=== PATIENT | male | born 1965 | race Two or more races ===

== ENCOUNTER 2016-06-20 09:20 | Emergency (ER) | payer MEDICARE ==
[2016-06-20] MEDS ORDERED: ASPIRIN 81 MG TABLET, CHEWABLE PO ONE (09:38)
[2016-06-20 09:43] VITALS: BP 145/73
--- NOTE | 2016-06-20 10:47 | ER Document Report ---
ED Medical Screen (RME) - General Chief Complaint: Rib Pain Stated Complaint: CHEST PAIN Mode of Arrival: Ambulatory Information source: Patient Notes: Patient presents complaining of chest pain and cough for the past week. Cough has been productive. Patient denies any fever, nausea, or vomiting. Patient reports occasional shortness of breath. Patient declines having any lab work done. Patient states he only came here for an x-ray. hx: Dialysis, hypertension TRAVEL OUTSIDE OF THE [place] IN LAST 30 DAYS: No - Related Data Allergies/Adverse Reactions: Penicillins Allergy (Severe, Verified 06/20/16 09:45) Hives Past Medical History - Social History Chew tobacco use (# tins/day): No - Past Medical History Cardiac Medical History: Reports: Hx Hypertension - on meds Denies: Hx Coronary Artery Disease, Hx Heart Attack Pulmonary Medical History: Denies: Hx Asthma, Hx Bronchitis, Hx COPD, Hx Pneumonia Neurological Medical History: Denies: Hx Cerebrovascular Accident, Hx Seizures Renal/ Medical History: Reports: Hx End Stage Renal Disease, Hx Hemodialysis. Denies: Hx Peritoneal Dialysis GI Medical History: Reports: Hx Gastroesophageal Reflux Disease Musculoskeltal Medical History: Denies Hx Arthritis Past Surgical History: Reports: Hx Cardiac Catheterization - 05/2012, Hx Vascular Surgery - AV fistula, PICC - Immunizations Hx Diphtheria, Pertussis, Tetanus Vaccination: Yes Physical Exam - Vital signs Vitals: Temp Pulse Resp BP Pulse Ox 98.2 F 64 18 145/73 H 99 06/20/16 09:43 06/20/16 09:43 06/20/16 09:43 06/20/16 09:43 06/20/16 09:43 - Respiratory Respiratory status: No respiratory distress Chest status: Pain with cough Breath sounds: Rhonchi Course - Vital Signs Vital signs: Temp Pulse Resp BP Pulse Ox 98.2 F 64 18 145/73 H 99 06/20/16 09:43 06/20/16 09:43 06/20/16 09:43 06/20/16 09:43 06/20/16 09:43
--- NOTE | 2016-06-20 13:27 | EKG REPORT ---
SEVERITY:- ABNORMAL ECG - SINUS RHYTHM PROBABLE LEFT VENTRICULAR HYPERTROPHY : Confirmed by: Leo Martinez MD 20-Jun-2016 13:26:46
== END 2016-06-20 12:33 | disposition left against medical advice (07) ==
LOC: ER 09:20
DX: R07.81 Pleurodynia (principal); R05 Cough; I12.0 Hypertensive chronic kidney disease with stage 5 chronic kidney disease or end stage renal disease; N18.6 End stage renal disease; Z99.2 Dependence on renal dialysis; Z88.0 Allergy status to penicillin
CPT/HCPCS: 93005; 99281; 71020; 93010; A9270

== ENCOUNTER 2016-10-17 10:19 | Day surgery (SDC) | payer MEDICARE ==
[2016-10-17] MEDS ORDERED: MIDAZOLAM 2 MG/2 ML INJ ONE (11:54)
[2016-10-17] MEDS ORDERED: FENTANYL CITRATE INJ/PF 100 MCG/2 ML AMPUL ONE (11:54)
[2016-10-17] MEDS ORDERED: HEPARIN SOD (PORCINE) 5,000 UNIT/ML 1 ML SYRINGE ONE (11:55)
[2016-10-17] MEDS ORDERED: DIAZEPAM 5 MG TABLET ONE (12:13)
[2016-10-17] MEDS ORDERED: LIDOCAINE 0.5% INJ-PF (5 MG/ML) 50 ML SDV ONE (12:13)
[2016-10-17] MEDS ORDERED: OXYCODONE-ACETAMINOPHEN 5-325 MG TABLET ONE (12:13)
--- NOTE | 2016-10-17 13:31 | PDOC DISCHARGE SUMMARY ---
Discharge Summary (SDC) - Discharge Final Diagnosis: Malfunctioning arteriovenous fistula, left transposed basilic vein 2. History of myocardial infarction. 3. Hypertension. 4. Hard of hearing. Date of Surgery: 10/17/16 Discharge Date: 10/17/16 Condition: Good Treatment or Instructions: Discharge home [after recovery per ASU criteria]. Diet , [renal],as tolerated, when fully awake advance as tolerated. Activities within moderation encouraged. Follow up in my office by appointment in about 1 month. Call for appointment. Leave wounds [covered], be removed for hemodialysis. May shower [in 48 hrs], [try to keep operated area as dry as possible]. Discharge Diet: Other (Comments) - Renal Report the Following to Your Physician Immediately: Unusual Bleeding
--- NOTE | 2016-10-17 13:36 | Operative Report ---
Operative Report DATE OF SURGERY: 10/17/16 PREOPERATIVE DIAGNOSIS: Malfunctioning arteriovenous fistula, left transposed basilic vein. 2. History of myocardial infarction. 3. Hypertension. 4. Hard of hearing. POSTOPERATIVE DIAGNOSIS: Malfunctioning arteriovenous fistula, left transposed basilic vein. 2. History of myocardial infarction. 3. Hypertension. 4. Hard of hearing. OPERATION: 1. Needle access and arteriovenous fistula. 2. Angioplasty, central vein. 3. Angiogram and interpretation. SURGEON: JONY LORA MEDICAL BILLING MANAGER: None ANESTHESIA: Moderate Sedation TISSUE REMOVED OR ALTERED: Not applicable. COMPLICATIONS: None ESTIMATED BLOOD LOSS: 5 mL per INTRAOPERATIVE FINDINGS: Of a well founded left arm arteriovenous fistula, transposed basilic vein good thrill and bruit. Somewhat firm. A fairly large fistula. His stenosis appreciated in mid superior vena cava about 50% of the adjacent lumen and resolved after angioplasty with an 8 mm balloon.. Flow through the fistula is quite gu suggesting satisfactory inflow which was not evaluated at this setting. PROCEDURE: PROCEDURE: After verifying the procedure and having obtained informed consent, the patient's left arm was prepared with Chlorhexidine and draped out with sterile linen. Local anesthesia infiltrated. Percutaneous access into the fistula ,[ antegrade], obtained about [2 cm] from the arteriovenous anastomosis using a micro puncture needle followed by micro puncture wire and then a micro puncture catheter. Angiogram demonstrated the aforementioned findings. Angioplasty was elected. A 0.035 Reform wire was inserted, and over this, a 6 Croatian short introducer was placed, this was followed by a [8-mm ] angioplasty balloon . Angioplasty was serially done from the culprit lesion in the superior vena cava, down to the introducer. Inflating with hand injection through a 3 mils syringe for up to 30 seconds.]. Completion angiogram demonstrated [satisfactory result]. The instrumentation was now withdrawn over hand-held pressure for 10 minutes . Dressings applied, procedure concluded. Exposure time:1.4 Radiation:42 m andres Contrast:25 ml DICTATING PHYSICIAN: JONY JEFFERSON M.D. cc: JONY JEFFERSON M.D. ([id number]) >>
[2016-10-17 14:25] VITALS: BP 112/56
--- NOTE | 2016-10-17 15:38 | RADIOLOGY REPORT (SQ) ---
EXAM DESCRIPTION: FISTULAGRAM W/PLASTY; ANGIOPLASTY BRACHIOCEPHALIC COMPLETED DATE/TIME: 10/17/2016 3:10 pm REASON FOR STUDY: T82.858A T82.858A STENOSIS OF OTHER VASCULAR PROSTH DEV/GRFT, INIT COMPARISON: None. FLUOROSCOPY TIME: 1.4 minutes 7 digital radiographic images saved to PACS. TECHNIQUE: Intra-operative images acquired during surgical procedure to evaluate progress. NUMBER OF IMAGES: Cine fluoroscopic images. LIMITATIONS: None. FINDINGS: Imaging in fluoroscopy during left upper extremity dialysis access evaluation and plasty b y Dr. Bowman . Please refer to the operative report for further details. IMPRESSION: INTRA PROCEDURAL IMAGING AND FLUORO ABOVE . COMMENT: Quality ID [id number]: Final reports for procedures using fluoroscopy that document radiation exp osure indices, or exposure time and number of fluorographic images (if radiation exposure indices are not available) Please consult full operative report of the attending physician for description of the procedure. TECHNICAL DOCUMENTATION: JOB ID: [id number] [employer]- All Rights Reserved
== END 2016-10-17 14:30 | disposition home or self-care (01) ==
LOC: CCL 10:19
PROVIDERS: ATTEND Surgery
PROC: 057C3DZ Dilation of Left Basilic Vein with Intraluminal Device, Percutaneous Approach (ICD-10-PCS; principal; 2016-10-17)
DX: T82.858A Stenosis of other vascular prosthetic devices, implants and grafts, initial encounter (principal); Y83.2 Surgical operation with anastomosis, bypass or graft as the cause of abnormal reaction of the patient, or of later complication, without mention of misadventure at the time of the procedure; I12.0 Hypertensive chronic kidney disease with stage 5 chronic kidney disease or end stage renal disease; N18.6 End stage renal disease; H91.90 Unspecified hearing loss, unspecified ear; I25.2 Old myocardial infarction; Z88.0 Allergy status to penicillin
CPT/HCPCS: 36907; 36902; C1725; C1752; Q9967; C1769; J2250; J1644 ×2; A9270 ×2; J3010; J3490

== ENCOUNTER 2016-12-05 09:40 | Day surgery (SDC) | payer MEDICARE ==
[2016-12-05 11:14] LABS: HEMATOCRIT 43.9 % (37.9-51.0); HEMOGLOBIN 14.6 g/dL (13.5-17.0); HGB HCT DIFFERENCE -0.1; MEAN CORPUSCULAR HEMOGLOBIN 31.4 pg (27.0-33.4); MEAN CORPUSCULAR HGB CONC 33.2 g/dL (32.0-36.0); MEAN CORPUSCULAR VOLUME 95 fl (80-97); RED BLOOD COUNT 4.64 10^6/uL (4.35-5.55); RED CELL DISTRIBUTION WIDTH 14.6 % (11.5-14.0); WHITE BLOOD COUNT 4.9 10^3/uL (4.0-10.5)
[2016-12-05 11:36] LABS: ANION GAP 17 (5-19); BLOOD UREA NITROGEN 58 mg/dL (7-20); CALCIUM 8.8 mg/dL (8.4-10.2); CARBON DIOXIDE 23 mmol/L (22-30); CHLORIDE 99 mmol/L (98-107); GLUCOSE 82 mg/dL (75-110); POTASSIUM 4.5 mmol/L (3.6-5.0); SODIUM 139.3 mmol/L (137-145)
[2016-12-05 11:42] LABS: CREATININE RESULT 13.41 mg/dL (0.52-1.25)
[2016-12-05] MEDS ORDERED: OXYCODONE-ACETAMINOPHEN 5-325 MG TABLET ONE (11:47)
[2016-12-05] MEDS ORDERED: DIAZEPAM 5 MG TABLET ONE (11:47)
--- NOTE | 2016-12-05 11:56 | PDOC H&P ---
General Chief Complaint: The patient fistula, left transposed basilic vein, reduced flow. He is therefore referred across for evaluation and improvement. - Current Medications/Allergies Home Medications: Trazodone HCl [Desyrel 50 mg Tablet] 50 mg PO QHS PRN 08/06/12 Nitroglycerin [Nitrostat 0.4 mg (1/150 Gr) Tabs 25/Bottle] 1 tab SL Q5MP PRN 08/26 Albuterol Sulfate [Proair HFA] 1 - 2 puff IH Q4 PRN 10/26/14 Alprazolam 1 mg PO BID 07/10/15 Hydrocodone/Acetaminophen [Hydrocodon-Acetaminoph 7.5-325] 1 tab PO Q6 PRN 07/10 Promethazine HCl 12.5 mg PO DAILY 07/10/15 Sevelamer Carbonate 4 tab PO TID 07/10/15 Calcium Carb/Magnesium Hydrox [Antacid 1000-200 mg Tab Chew] 1 each PO DAILY PRN 08/05/15 Aspirin [Ecotrin 81 mg EC Tablet] 81 mg PO DAILY 10/17/16 Allergies/Adverse Reactions: Penicillins Allergy (Severe, Verified 06/20/16 09:45) Hives Past Medical History Cardiac Medical History: Reports: Myocardial Infarction - 2016 Denies: Coronary Artery Disease, Hypertension Pulmonary Medical History: Denies: Asthma, Bronchitis, Chronic Obstructive Pulmonary Disease (COPD), Pneumonia Neurological Medical History: Denies: Seizures Renal/ Medical History: Reports: End Stage Renal Disease GI Medical History: Reports: Gastroesophageal Reflux Disease Musculoskeltal Medical History: Denies: Arthritis Hematology: Denies: Anemia Past Surgical History Past Surgical History: Reports: Cardiac Catheterization - 05/2012, Vascular Surgery - AV fistula, PICC Family History Family History: Reviewed & Not Pertinent Parental Family History Reviewed: No Children Family History Reviewed: No Sibling(s) Family History Reviewed.: No Social History Smoking Status: Former Smoker Drugs: Marijuana Physical Exam Vital Signs: Temp Pulse Resp BP Pulse Ox 98.2 F 60 16 109/64 100 12/05/16 11:40 12/05/16 11:40 12/05/16 11:40 12/05/16 11:47 12/05/16 11:40 Intake & Output 12/04/16 12/05/16 12/06/16 06:59 06:59 06:59 Weight 49.895 kg 47.1 kg Additional comments: Constitutional: Well-developed well-nourished gentleman. No apparent acute distress. Eyes: Mucous membranes pink and moist, pupils equal and reactive to light. Conjunctiva normal. Cornea normal. ENT: Hearing grossly normal. External pinna normal to inspection. Teeth missing. Tongue normal to inspection. Cardiac: Heart sounds 1 and 2 normal. Respiratory breath sounds are present bilaterally, normal. Normal respiratory effort. Psychiatric: Judgment, memory, insight seem normal. Mood is pleasant and appropriate. Extremities: Upper extremities show normal range of movement. Pulses present noted to the radial arteries. Capillary refill normal. No cyanosis noted. No muscle wasting noted. Left arm has a transposed fistula, adequate size. Likely soft suggesting possible inflow improvement opportunity. Impression/Plan Impression: #1 malfunctioning AV fistula left arm transposed. 2. History of coronary artery disease. 3. Hypertension. Plan: In this patient with a malfunctioning AV fistula,Angiogram and possible angioplasty is suggested. Risks, benefits, expected outcome of familiar to the patient. He wishes to proceed.
[2016-12-05] MEDS ORDERED: LIDOCAINE 0.5% INJ-PF (5 MG/ML) 50 ML SDV ONE (11:57)
[2016-12-05] MEDS ORDERED: MIDAZOLAM 2 MG/2 ML INJ ONE (11:57)
[2016-12-05] MEDS ORDERED: FENTANYL CITRATE INJ/PF 100 MCG/2 ML AMPUL ONE (11:57)
[2016-12-05] MEDS ORDERED: HEPARIN SOD (PORCINE) 5,000 UNIT/ML 1 ML SYRINGE ONE (11:57)
--- NOTE | 2016-12-05 12:59 | PDOC DISCHARGE SUMMARY ---
Discharge Summary (SDC) - Discharge Final Diagnosis: #1 malfunctioning AV fistula left arm transposed. 2. History of coronary artery disease. 3. Hypertension. Date of Surgery: 12/05/16 Discharge Date: 12/05/16 Condition: Good Treatment or Instructions: Discharge home [after recovery per ASU criteria]. Diet , [renal],as tolerated, when fully awake advance as tolerated. Activities within moderation encouraged. Follow up in my office by appointment in about [1 month]. Call for appointment. Leave wounds [covered], [keep clean and dry, until hemodialysis office visit in 1 week]. Meds per med rec May shower [in 48 hrs], [try to keep operated area as dry as possible]. Discharge Diet: Other (Comments) - Renal Respiratory Treatments at Home: Deep Breathing/Coughing Discharge Activity: Activity As Tolerated Report the Following to Your Physician Immediately: Shortness of Breath, Unusual Bleeding
--- NOTE | 2016-12-05 13:21 | Operative Report ---
Operative Report DATE OF SURGERY: 12/05/16 PREOPERATIVE DIAGNOSIS: 1. Malfunctioning AV fistula left transposed basilic. 2. End-stage renal disease on hemodialysis. 3. Hypertension. POSTOPERATIVE DIAGNOSIS: 1. Malfunctioning AV fistula left transposed basilic. 2. End-stage renal disease on hemodialysis. 3. Hypertension. OPERATION: 1. Needle access to the arteriovenous fistula. 2. Angioplasty. 3. Angiogram and interpretation. SURGEON: JONY LORA MACHINE PLATE STACKER: None ANESTHESIA: Moderate Sedation TISSUE REMOVED OR ALTERED: Not applicable. COMPLICATIONS: Some prolonged bleeding, probably because of increase in flow. Also noted is a low pulse to 40. Asymptomatic the patient feels feels fine and blood pressure is well maintained. This is almost certainly chronic. Will discuss with his electrical project engineer. ESTIMATED BLOOD LOSS: 5 mL. INTRAOPERATIVE FINDINGS: Of a well founded arteriovenous fistula, left transposed basilic. A borderline area about 2 cm long in the subclavian 40% stenosis, is not felt to be hemodynamically significant. It may need addressing in the future. The culprit is relatively small inflow from the radial artery and small perianastomotic segment. These were improved with angioplasty with much increased pulse in the fistula. PROCEDURE: PROCEDURE: After verifying the procedure and having obtained informed consent, the patient's left arm and forearm were prepared with Chlorhexidine and draped out with sterile linen. Local anesthesia infiltrated. Percutaneous access into the fistula ,[retrograde], obtained about [20 cm] from the arteriovenous anastomosis using a micro puncture needle followed by micro puncture wire and then 1 more angiogram demonstrated the aforementioned findings. Angioplasty was elected. A 0.035 [place] wire was inserted, and over this, a 6 Mongolian short introducer was placed, followed by a Kumpe catheter , allowing access to the radial artery. Angiogram was as above. This was followed by a [6 mm soft] angioplasty balloon . Angioplasty was now done at the this was done using a 3 mm perianastomotic segment. Balloon and sustain for her. Angiogram demonstrated successful outcome. Completion angiogram demonstrated [satisfactory result]. The instrumentation was now withdrawn over a short piece of catheter and a 4-0 Prolene suture. Dressings applied, procedure concluded. DICTATING PHYSICIAN: JONY JEFFERSON M.D. cc: JONY JEFFERSON M.D. ([id number])
[2016-12-05] MEDS ORDERED: NALOXONE HCL INJ/PF 0.4 MG/1 ML SDV ONE (13:34)
[2016-12-05 15:15] VITALS: BP 104/64
--- NOTE | 2016-12-05 16:44 | RADIOLOGY REPORT (SQ) ---
EXAM DESCRIPTION: FISTULAGRAM W/PLASTY COMPLETED DATE/TIME: 12/05/2016 3:20 pm REASON FOR STUDY: T82.858A T82.858A STENOSIS OF OTHER VASCULAR PROSTH DEV/GRFT, INIT COMPARISON: None. FLUOROSCOPY TIME: 2.7 minutes. 13 images saved to PACS. TECHNIQUE: Intra-operative images acquired during surgical procedure to evaluate progress. NUMBER OF IMAGES: 13 images. LIMITATIONS: None. FINDINGS: Imaging in fluoroscopy during left upper extremity dialysis access evaluation and plasty b y Dr. Bowman . Please refer to the operative report for further details. IMPRESSION: INTRA PROCEDURAL IMAGING ABOVE . COMMENT: Quality ID [id number]: Final reports for procedures using fluoroscopy that document radiation exp osure indices, or exposure time and number of fluorographic images (if radiation exposure indices are not available) Please consult full operative report of the attending physician for description of the procedure. TECHNICAL DOCUMENTATION: JOB ID: [id number] [employer]- All Rights Reserved
== END 2016-12-05 14:15 | disposition home or self-care (01) ==
LOC: SC 09:40
PROVIDERS: ATTEND Surgery
PROC: 057C3DZ Dilation of Left Basilic Vein with Intraluminal Device, Percutaneous Approach (ICD-10-PCS; principal; 2016-12-05)
DX: T82.858A Stenosis of other vascular prosthetic devices, implants and grafts, initial encounter (principal); Y83.2 Surgical operation with anastomosis, bypass or graft as the cause of abnormal reaction of the patient, or of later complication, without mention of misadventure at the time of the procedure; N18.6 End stage renal disease; F12.90 Cannabis use, unspecified, uncomplicated; I25.2 Old myocardial infarction; Z79.899 Other long term (current) drug therapy; Z79.51 Long term (current) use of inhaled steroids; Z79.82 Long term (current) use of aspirin; Z87.891 Personal history of nicotine dependence; Z88.0 Allergy status to penicillin
CPT/HCPCS: 36415; 85027; 80048; 36902; 93005; 93010; C1752; C1887; C1894; Q9967; C1769; J1644 ×2; A9270 ×2; J3010; J3490; J2310; J2250

== ENCOUNTER 2017-05-03 07:05 | Emergency (ER) | payer MEDICARE, MEDICAID ==
[2017-05-03] MEDS ORDERED: MORPHINE SULFATE 10 MG/ML INJ IV ONE (07:26)
--- NOTE | 2017-05-03 07:27 | ER Document Report ---
ED General - General Chief Complaint: Back Pain Stated Complaint: BACK PAIN Time Seen by Provider: 05/03/17 07:12 Notes: Patient is a 51 year old male who presents to the ED complaining of sudden onset right flank pain this AM when he woke up. Patient is very disruptive and noncooperative. Through repetitive questioning and review of the chart, able to gather he has a h/o ESRD on dialysis MWF without any missed treatments and follow with Dr. Downs, history of previous back injury with DD v.s OA, h/o nephrolithiaisis. H/o CAD with possible h/o IA but patient not cooperative regarding this portion of his history, HTN Denies tobacco, etoh or drug use TRAVEL OUTSIDE OF THE [place] IN LAST 30 DAYS: No - Related Data Allergies/Adverse Reactions: Penicillins Allergy (Severe, Verified 06/20/16 09:45) Hives Past Medical History - Social History Smoking Status: Never Smoker Family History: Reviewed & Not Pertinent - Past Medical History Cardiac Medical History: Reports: Hx Heart Attack - 2015 Denies: Hx Coronary Artery Disease, Hx Hypertension Pulmonary Medical History: Denies: Hx Asthma, Hx Bronchitis, Hx COPD, Hx Pneumonia Neurological Medical History: Denies: Hx Cerebrovascular Accident, Hx Seizures Renal/ Medical History: Reports: Hx End Stage Renal Disease, Hx Hemodialysis. Denies: Hx Peritoneal Dialysis GI Medical History: Reports: Hx Gastroesophageal Reflux Disease Musculoskeltal Medical History: Denies Hx Arthritis Past Surgical History: Reports: Hx Cardiac Catheterization - 05/2012, Hx Vascular Surgery - AV fistula, PICC - Immunizations Hx Diphtheria, Pertussis, Tetanus Vaccination: Yes Hx Pneumococcal Vaccination: 07/12/16 Review of Systems - Review of Systems -: Yes ROS unobtainable due to patient's medical condition - Pat[place] refusing to answer, states "my back hurts" Physical Exam - Vital signs Vitals: Temp Pulse Resp BP Pulse Ox 97.5 F 89 20 133/60 H 92 05/03/17 07:09 05/03/17 07:09 05/03/17 07:09 05/03/17 07:09 05/03/17 07:09 - Notes Notes: PHYSICAL EXAM GENERAL: Alert, significant discomfort and tearful, constantly fidgeting on the gurney HEAD: Normocephalic, atraumatic. EYES: Pupils equal, round, and reactive to light. Extraocular movements intact. ENT: Oral mucosa moist, tongue midline. NECK: Full range of motion. Supple. Trachea midline. LUNGS: Clear to auscultation bilaterally, no wheezes, rales, or rhonchi. No respiratory distress. HEART: Regular rate and rhythm. No murmurs, gallops, or rubs. ABDOMEN: Soft, nondistended, nontender. No guarding, rebound, or rigidity.. Bowel sounds present in all 4 quadrants. BACK: gait stable, patient able to ambulate. Admits to tenderness to palpation of the right paralumbar musculature and CVA tenderness on the right EXTREMITIES: Moves all 4 extremities spontaneously. No edema, radial and dorsalis pedis pulses 2/4 bilaterally. No cyanosis. NEUROLOGICAL: Alert and oriented x4. Normal speech. PSYCH: Normal affect, normal mood. SKIN: Warm, dry, normal turgor. No rashes or lesions noted. Course - Re-evaluation Re-evalutation: 05/03/17 09:26 Patient is a 51 year old male who is hemodynamically stable, very uncomfortable and afebrile. Has been uncooperative and refusing blood work initially. Review of the chart show history of kidney stones, patient is anuric. 05/03/17 10:23 CT shows evidence of chronic kidney disease and no acute source of his pain. Patient resting comfortably and cooperative/consenting to blood draws. Did review most recent monthly labs from his home dialysis clinic. 05/03/17 11:34 Patient with an elevated potassium of 6.2 with peak T waves noted on EKG. Otherwise patient is stable without shortness of breath or chest pain. Discussed case with patient's foreign exchange dealer Dr. Downs who recommends outpatient dialysis upon discharge from the emergency department she will call over to [facility] and touch base with the department to see if they are able to take him today. 05/03/17 12:30 Patient feeling much better, will send with community financial operations consultant to [facility] for dialysis - Vital Signs Vital signs: Temp Pulse Resp BP Pulse Ox 97.8 F 72 18 132/59 H 98 05/03/17 12:50 05/03/17 12:50 05/03/17 12:50 05/03/17 12:50 05/03/17 12:50 - Laboratory Result Diagrams: 05/03/17 10:01 05/03/17 10:01 Laboratory results interpreted by me: 05/03/17 05/03/17 05/03/17 10:01 10:01 10:01 RDW 16.1 H Seg Neutrophils % 82.9 H Lymphocytes % 8.0 L Potassium 6.2 H* Carbon Dioxide 21 L Anion Gap 22 H BUN 50 H Creatinine 10.85 H Est GFR ( Amer) 6 L Est GFR (Non-Af Amer) 5 L Calcium 10.3 H Magnesium 2.4 H Direct Bilirubin 0.7 H ALT 20 L Discharge - Discharge Clinical Impression: End stage renal disease on dialysis, Flank pain Condition: Stable Disposition: HOME, SELF-CARE Additional Instructions: Please go to [facility] immediately after dialysis LOW BACK PAIN: Three out of every four people will have an episode of disabling back pain during their lifetime. Most commonly the pain is due to straining of the muscles and ligaments in the low back. Usual treatment includes: (1) Rest on a firm surface. Avoid lying on your stomach. (2) Ice pack the painful area. After a few days, gentle heat may be used intermittently to relax the area, or ice packs can be continued. (3) Medication may be needed -- muscle relaxers and antiinflammatory medicines are commonly used. (4) As the back improves, exercises are prescribed to strengthen the back and abdominal muscles. Your doctor will advise you on the proper care for your back at each stage in your recovery. You may be better in a few days -- or healing may take several weeks. If new symptoms of a "herniated disc" (radiation of pain, numbness, or tingling down the back of the leg or weakness in the leg) occur, you should be re-examined. Further testing may be necessary. PAIN MEDICATION INJECTION: You have received an injection of a pain medication. You should experience significant pain relief within 45 minutes. If this injection was a narcotic -- it will impair your judgement, slow your reaction time and make you sleepy (as well as relieve your pain). Narcotics also can cause nausea. You should not drive, work with machinery, or perform any task requiring mental alertness until all effects of the medication are gone -- six to eight hours. Do not take any alcohol, or sedatives, and do not take any other medication without checking with your physician. ICE PACKS: Apply ice packs frequently against the painful area. Many different schedules are recommended, such as "20 minutes on, 20 minutes off" or "one hour ice, two hours rest." If you need to work, you may need to go longer between ice treatments. You should plan to have the area ice packed AT LEAST one fourth of the time. The ice should be applied over the wrap, tape, or splint, or over a layer of cloth -- not directly against the skin. Some ice bags have a built-in cloth and can be put directly on the skin. WARM PACKS: After approximately two days, apply gentle heat (such as a heating pad or hot water bottle) for about 20 to 30 minutes about every two hours -- at least four times daily. Warmth and elevation will help you make a more rapid recovery , and will ease the pain considerably. Do not use HOT heat, and never apply heat for longer than 30 minutes. The continuous heat can invisibly damage skin and muscles -- even when no burn is seen on the surface. Damaged muscles can make you MORE sore. FOLLOW-UP CARE: If you have been referred to a physician for follow-up care, call the physician s office for an appointment as you were instructed or within the next two days. If you experience worsening or a significant change in your symptoms, notify the physician immediately or return to the Emergency Department at any time for re-evaluation. Referrals: JASBIR DOWNS MD [ACTIVE STAFF] - Follow up tomorrow
[2017-05-03] MEDS ORDERED: CYCLOBENZAPRINE HCL 10 MG TABLET PO ONE (07:37)
[2017-05-03] MEDS ORDERED: LORAZEPAM 1 MG TABLET PO ONE (07:39)
[2017-05-03] MEDS ORDERED: OXYCODONE-ACETAMINOPHEN 5-325 MG TABLET PO ONE (08:21)
--- NOTE | 2017-05-03 08:28 | RADIOLOGY REPORT (SQ) ---
EXAM DESCRIPTION: CT LTD RENAL STONE PROTOCOL ON COMPLETED DATE/TIME: 05/03/2017 7:54 am REASON FOR STUDY: right flank pain COMPARISON: CT abdomen pelvis 08/04/2015 TECHNIQUE: CT scan of the abdomen and pelvis performed without intravenous or oral contrast. Images reviewed with lung, soft tissue, and bone windows. Reconstructed coronal and sagittal MPR images revi ewed. All images stored on PACS. All CT scanners at this facility use dose modulation, iterative reconstruction, and/or weight based d osing when appropriate to reduce radiation dose to as low as reasonably achievable (ALARA). [facility]: Dose Right [facility]: CareDose [facility]: Dose Right [facility]: Teradose 4D [facility]: Smart [employer] RADIATION DOSE: CT Rad equipment meets quality standard of care and radiation dose reduction techniq ues were employed. CTDIvol: 4.8 mGy. DLP: 253 mGy-cm.mGy. LIMITATIONS: None. FINDINGS: LOWER CHEST: No significant findings. No nodules or infiltrates. NON-CONTRASTED LIVER, SPLEEN, ADRENALS: Evaluation limited by lack of IV contrast. No identified sign ificant masses. PANCREAS: No masses. No peripancreatic inflammatory changes. GALLBLADDER: No identified stones by CT criteria. No inflammatory changes to suggest cholecystitis. RIGHT KIDNEY AND URETER: 1.3 cm cyst right upper pole kidney. Right kidney diffusely small, 8 cm in length with diffuse cortical thinning. No significant calcifications. No hydronephrosis or hydrou reter. LEFT KIDNEY AND URETER: 1.5 cm hemorrhagic cyst versus solid nodule left lower pole kidney axial imag e 30 and coronal image 49. Left kidney is small, 7.5 cm in length with diffuse cortical thinning 2 mm left upper pole intrarenal nonobstructive stone. No hydronephrosis or hydroureter. AORTA AND RETROPERITONEUM: No aneurysm. No retroperitoneal masses or adenopathy. BOWEL AND PERITONEAL CAVITY: Large amount of stool throughout the colon. No CT evidence of bowel obs truction. No free intraperitoneal air or fluid. APPENDIX: Normal. PELVIS, BLADDER, AND ABDOMINAL WALL:No abnormal masses. No free fluid. Bladder normal. BONES: No significant findings. OTHER: No other significant finding. IMPRESSION: Small bilateral kidneys with cortical thinning. Correlate clinically for renal insuffic iency 2 mm left upper pole intrarenal nonobstructive stone Indeterminate hemorrhagic cyst versus solid mass left lower pole kidney. Follow-up renal ultrasound recommended. COMMENT: Quality ID # [id number]: Final reports with documentation of one or more dose reduction techniques (e.g., Automated exposure control, adjustment of the mA and/or kV according to patient size, use of iterative reconstruction technique) TECHNICAL DOCUMENTATION: JOB ID: [id number] [employer]- All Rights Reserved
[2017-05-03] MEDS ORDERED: MORPHINE SULFATE 10 MG/ML INJ IM ONE (08:40)
[2017-05-03 10:15] LABS: ABSOLUTE BASOPHILS # (AUTO) 0.1 10^3/uL (0.0-0.2); ABSOLUTE EOSINOPHILS # (AUTO) 0.2 10^3/uL (0.0-0.6); ABSOLUTE LYMPHOCYTES (AUTO) 0.6 10^3/uL (0.5-4.7); ABSOLUTE MONOCYTES (AUTO) 0.5 10^3/uL (0.1-1.4); ABSOLUTE NEUT (AUTO) 6.2 10^3/uL (1.7-8.2); BASOPHILS % (AUTO) 0.7 % (0-2); EOSINOPHILS % (AUTO) 2.2 % (0-6); HEMATOCRIT 43.4 % (37.9-51.0); HEMOGLOBIN 14.6 g/dL (13.5-17.0); HGB HCT DIFFERENCE 0.4; MEAN CORPUSCULAR HEMOGLOBIN 31.7 pg (27.0-33.4); MEAN CORPUSCULAR HGB CONC 33.6 g/dL (32.0-36.0); MEAN CORPUSCULAR VOLUME 94 fl (80-97); MONOCYTES % (AUTO) 6.2 % (3-13); RED CELL DISTRIBUTION WIDTH 16.1 % (11.5-14.0); SEGMENTED NEUTROPHILS % (AUTO) 82.9 % (42-78); WHITE BLOOD COUNT 7.5 10^3/uL (4.0-10.5)
[2017-05-03 10:34] LABS: ALANINE AMINOTRANSFERASE 20 U/L (21-72); ALKALINE PHOSPHATASE 55 U/L (38-126); ASPARTATE AMINO TRANSFERASE 18 U/L (17-59); BILIRUBIN,DIRECT 0.7 mg/dL (0.0-0.4); BILIRUBIN,TOTAL 0.7 mg/dL (0.2-1.3); BLOOD UREA NITROGEN 50 mg/dL (7-20); CALCIUM 10.3 mg/dL (8.4-10.2); CREATININE RESULT 10.85 mg/dL (0.52-1.25); GLUCOSE 87 mg/dL (75-110)
[2017-05-03 10:44] LABS: CARBON DIOXIDE 21 mmol/L (22-30); CHLORIDE 100 mmol/L (98-107); SODIUM 143.1 mmol/L (137-145)
[2017-05-03 10:48] LABS: ANION GAP 22 (5-19)
[2017-05-03 10:50] LABS: POTASSIUM 6.2 mmol/L (3.6-5.0)
[2017-05-03 12:50] VITALS: BP 132/59
--- NOTE | 2017-05-03 13:34 | EKG REPORT ---
SEVERITY:- ABNORMAL ECG - SINUS RHYTHM NONSPECIFIC INTRAVENTRICULAR CONDUCTION DELAY PROBABLE LEFT VENTRICULAR HYPERTROPHY : Confirmed by: Leo Martinez MD 03-May-2017 13:34:31
== END 2017-05-03 12:50 | disposition home or self-care (01) ==
LOC: ER 07:05
DX: R10.9 Unspecified abdominal pain (principal); N18.6 End stage renal disease; Z99.2 Dependence on renal dialysis; Z87.442 Personal history of urinary calculi; M54.9 Dorsalgia, unspecified
CPT/HCPCS: 93005; 99284; 96372; 36415; 83735; 85025; 80053; 76380; 93010; A9270 ×3; J2270

== ENCOUNTER 2017-05-04 21:46 | Emergency (ER) | payer MEDICARE, MEDICAID ==
[2017-05-04 21:54] VITALS: BP 133/89
[2017-05-04] MEDS ORDERED: OXYCODONE-ACETAMINOPHEN 5-325 MG TABLET PO ONE (22:42)
--- NOTE | 2017-05-04 23:09 | ER Document Report ---
ED Extremity Problem, Lower - General Chief Complaint: Leg Pain Stated Complaint: RIGHT LEG PAIN Time Seen by Provider: 05/04/17 22:26 Information source: Patient Notes: Patient is a 51-year-old male who returns to the emergency department today stating that after he left here he went to dialysis by the EMS transport got downsized. He got up was walking out and tripped and fell landing on his right leg. Patient states that he has "no feeling in his leg". Patient also states that he landed straight on his knee and that is why he believes he has difficulty walking. He also states that he think he might have broke his right middle toe. Patient denies any other traumatic events and did not hit his head or have loss of consciousness or have any other injuries. He is here to get his leg checked out. TRAVEL OUTSIDE OF THE [place] IN LAST 30 DAYS: No - HPI Patient complains to provider of: Altered sensation, Injury Location: Knee, Leg, 3rd Toe Occurred: This afternoon Where: Other - Dialysis office Onset/Duration: Sudden Quality of pain: Achy, Sharp Severity: Moderate Pain Level: 3 Context: Wearing shoes Recent injury: Yes Associated symptoms: Weak Exacerbated by: Walking Relieved by: Rest Other injuries: No other injuries were sustained - Related Data Allergies/Adverse Reactions: Penicillins Allergy (Severe, Verified 06/20/16 09:45) Hives Past Medical History - General Information source: Patient - Social History Smoking Status: Unknown if Ever Smoked Chew tobacco use (# tins/day): No Smoking Education Provided: No Frequency of alcohol use: None Drug Abuse: None Family History: Reviewed & Not Pertinent - Past Medical History Cardiac Medical History: Reports: Hx Heart Attack - 2016 Denies: Hx Coronary Artery Disease, Hx Hypertension Pulmonary Medical History: Denies: Hx Asthma, Hx Bronchitis, Hx COPD, Hx Pneumonia Neurological Medical History: Denies: Hx Cerebrovascular Accident, Hx Seizures Renal/ Medical History: Reports: Hx End Stage Renal Disease, Hx Hemodialysis. Denies: Hx Peritoneal Dialysis GI Medical History: Reports: Hx Gastroesophageal Reflux Disease Musculoskeltal Medical History: Denies Hx Arthritis Past Surgical History: Reports: Hx Cardiac Catheterization - 05/2012, Hx Vascular Surgery - AV fistula, PICC - Immunizations Hx Diphtheria, Pertussis, Tetanus Vaccination: Yes Hx Pneumococcal Vaccination: 07/12/16 Review of Systems - Review of Systems Constitutional: No symptoms reported EENT: No symptoms reported Cardiovascular: No symptoms reported Respiratory: No symptoms reported Gastrointestinal: No symptoms reported Genitourinary: No symptoms reported Male Genitourinary: No symptoms reported Skin: No symptoms reported Hematologic/Lymphatic: No symptoms reported Neurological/Psychological: No symptoms reported -: Yes All other systems reviewed and negative Physical Exam - Vital signs Vitals: Temp Pulse Resp BP Pulse Ox 98.4 F 75 18 133/89 H 99 05/04/17 21:53 05/04/17 21:53 05/04/17 21:53 05/04/17 21:53 05/04/17 21:53 Interpretation: Hypertensive - General General appearance: Appears well Notes: Patient stated for 51-year-old male who comes to the emergency room often. He was here yesterday and with a complaint of back pain he had a extensive workup including a CT of his kidneys and back and lab work done. The previous provider noted the patient was very noncompliant somewhat abusive difficult to deal with it until he got some pain medication. After the patient was much nicer and started to respond to questions and answers that were asked of him. Yesterday's labs with the patient had a 6.1 potassium with an elevated BUN/ creatinine but he is on chronic dialysis. The provider contacted the road builder in charge he was discharged by our facility here in ER and taken directly from here over to the dialysis and had his treatment. Patient then states that after his dialysis was done he was walking and he tripped and he fell landing on his right knee and leg. States since that time is not be able to bear any weight and he is "loss of feeling in his leg". Patient also states that he is having difficulty walking that his leg gives out when he tries to place weight upon it. Patient continues to tell me he is in a lot of pain and is something for the pain. Prior to walking into the room is monitoring patient from around the hallway and he did not appear in any type of distress. He was freely moving both arms and legs both sides of the body. He had no problem in transfer from chair to gurney. Also make note patient on physical exam is a very frail-appearing individual - Respiratory Respiratory status: No respiratory distress Chest status: Nontender Breath sounds: Normal Chest palpation: Normal - Cardiovascular Rhythm: Regular Heart sounds: Normal auscultation Murmur: No - Back Back: Normal, Nontender. No: Tender, Deformity/step-off, CVA tenderness, Vertebra tenderness, Scars, Scoliosis, Wounds, Other - Extremities General upper extremity: Normal inspection, Normal ROM, Normal strength General lower extremity: Tender, Normal temperature. No: Normal inspection, Nontender, Edema, Normal color, Normal ROM, Normal strength, Normal weight bearing, Estela's sign, Other Shoulder: Normal, Nontender Hip: Nontender, Other - At this time is difficult to determine whether patient can bear weight or not. We are waiting for x-rays to come back to make sure there is no serious problem then we will attempt to have him ambulate. Currently though he is moving all 4 extremities without any problem lying on the gurney. Is also actively flexing and extending his right leg without noticing it. But at the same telling me he cannot move his leg.. No: Normal, Tender, Abrasion, Deformity, Dislocation, Ecchymosis, Instability, Laceration, Pain with ROM, Unable to bear weight Thigh: Normal, Nontender. No: Tender, Abrasion, Deformity, Dislocation, Ecchymosis, Instability, Laceration, Unable to bear weight, Other Knee: Pain with ROM, Patellar tendon intact, Other - Also further inspection patient's lower extremities on this exam from description patient fell straight down onto his leg and he has not been able to move it very much since then. This is already been questionable since he is moving everything freely on her examination. And also to note his right knee does appear somewhat a little on the swollen side however there is no ecchymosis or abrasions that are noted from a sustained fall which he says occurred yesterday.. No: Normal, Nontender , Tender, Abrasion, Deformity, Dislocation, Drawer's test instability, Ecchymosis, Instability, Joint effusion, Laceration, Laxity with valgus stress, Laxity with varus stress, Popliteal fossa tender, Tender joint line, Unable to bear weight Calf: Normal, Nontender. No: Tender, Abrasion, Deformity, Ecchymosis, Instability, Laceration, Unable to bear weight, Other Foot: Other - This is just make note that I did a pinprick test on patient's foot leg thigh calf and he responded with jerking. This was only done with the end of a ball point pen so as not sharp in nature to the sensation. This goes against him telling me he has no feeling in the leg. - Neurological Neuro grossly intact: Yes Cognition: Normal Orientation: AAOx4 Sloan Coma Scale Eye Opening: Spontaneous Kira Coma Scale Verbal: Oriented Kira Coma Scale Motor: Obeys Commands Sloan Coma Scale Total: 15 Speech: Normal Course - Vital Signs Vital signs: Temp Pulse Resp BP Pulse Ox 98.4 F 75 18 133/89 H 99 05/04/17 21:53 05/04/17 21:53 05/04/17 21:53 05/04/17 21:53 05/04/17 21:53 - Diagnostic Test Radiology reviewed: Reports reviewed - The plain films of patient's right hip right knee and right foot showed no acute findings. - Transfer of Care Notes: 05/05/17 00:15 Since patient has been here is asked for pain medication again. I am still waiting on the x-ray readings to come through. Just wanted to make note throughout his entire stay here patient is not once complained of back pain. He has not complained of loss of stool. Also did not feel was necessary to repeat labs since it was documented patient was directly taken from this hospital to dialysis yesterday for his regular visit. He is also not complaining of anything with the exception of the pain to the knee and "loss of feeling. During my physical examination while patient had his eyes diverted I took my opinion and I touched the bottom of his foot and he jerked back. I waited a while and I touch the calf again he jerked back so patient has feeling in his leg. 05/05/17 00:27 As stated earlier patient been asking for pain medication again for his leg. Made mention to the nurse on a couple times that the pain was too much she could not walk. I was on the way to see the patient nurse had already relayed the message I was waiting on the x-rays to see if he had fractured anything before getting more pain medication and 10 minutes later nurse comes back to me and tells me that patient got up on his own and walked out the door with a steady gait and left. 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 05/05/17 00:38 I did make a point myself to walk around the building is difficult to find the patient and he has no were present to be found. I avoided to the x-rays came back the hip the knee and the foot and all were normal in appearance per radiology. So at this point patient did display drug-seeking behavior and when not provided he decided to leave. 05/05/17 00:40 Also to point out that patient does not necessarily have left AGAINST MEDICAL ADVICE for diagnosis because he never asked for advice and just decided to up and leave without any indication of why. Discharge - Discharge Clinical Impression: Drug-seeking behavior Condition: Good Disposition: ELOPED
--- NOTE | 2017-05-05 00:34 | RADIOLOGY REPORT (SQ) ---
EXAM DESCRIPTION: HIP RIGHT AP/LATERAL CLINICAL HISTORY: 51 years, Male, tripped; Rt. leg pain COMPARISON: None. LIMITATIONS: None. FINDINGS: Bones, joints, and soft tissues appear intact. IMPRESSION: Intact right hip. 2011 [employer]- All Rights Reserved
--- NOTE | 2017-05-05 00:35 | RADIOLOGY REPORT (SQ) ---
EXAM DESCRIPTION: KNEE RIGHT 4 VIEWS CLINICAL HISTORY: 51 years, Male, tripped; Rt leg pain COMPARISON: None. NUMBER OF VIEWS:4 LIMITATIONS: None. FINDINGS: Bones, joints, and soft tissues appear intact. IMPRESSION: Intact right knee. 2011 [employer]- All Rights Reserved
--- NOTE | 2017-05-05 00:36 | RADIOLOGY REPORT (SQ) ---
EXAM DESCRIPTION: FOOT RIGHT COMPLETE CLINICAL HISTORY: 51 years, Male, tripped; Rt. leg pain COMPARISON: None. LIMITATIONS: None. FINDINGS: Atherosclerosis. Bony demineralization. Bones, joints, and soft tissues including the fifth digit appear otherwise intact. IMPRESSION: Intact right foot. 2011 [employer]- All Rights Reserved
== END 2017-05-05 00:15 | disposition left against medical advice (07) ==
LOC: ER 21:46
DX: Z76.5 Malingerer [conscious simulation] (principal); N18.6 End stage renal disease; Z99.2 Dependence on renal dialysis; I25.2 Old myocardial infarction; Z88.0 Allergy status to penicillin
CPT/HCPCS: 99283; 73630; 73502; 73564; A9270

== ENCOUNTER 2017-05-06 09:53 | Emergency (ER) | payer MEDICARE, MEDICAID ==
[2017-05-06 10:03] VITALS: BP 140/72
--- NOTE | 2017-05-06 11:22 | ER Document Report ---
HPI - HPI Patient complains to provider of: right leg pain Onset: Other Onset/Duration: Persistent Quality of pain: Throbbing Severity: Moderate Pain Level: 3 Context: Patient states he was seen in the emergency room twice recently for back pain and right leg pain. Comes in today complaining of continuing right leg pain. No new injury. Denies loss of control of bowels or bladder. Associated Symptoms: None Exacerbated by: Movement, Walking Relieved by: Denies Similar symptoms previously: Yes Recently seen / treated by doctor: Yes - ROS ROS below otherwise negative: Yes Systems Reviewed and Negative: Yes All other systems reviewed and negative - CONSTITUTIONAL Constitutional: DENIES: Fever - EENT EENT: DENIES: Congestion - NEURO Neurology: DENIES: Headache - CARDIOVASCULAR Cardiovascular: DENIES: Chest pain - RESPIRATORY Respiratory: DENIES: Trouble Breathing - GASTROINTESTINAL Gastrointestinal: DENIES: Abdominal Pain - URINARY Urinary: DENIES: Dysuria, Urgency, Frequency - MUSCULOSKELETAL Musculoskeletal: REPORTS: Extremity pain - Right leg pain - DERM Skin Color: Normal Past Medical History - General Information source: Patient - Social History Smoking Status: Unknown if Ever Smoked Cigarette use (# per day): No Frequency of alcohol use: None Drug Abuse: None Lives with: Family Family History: Reviewed & Not Pertinent - Past Medical History Cardiac Medical History: Reports: Hx Heart Attack - 2015 Renal/ Medical History: Reports: Hx End Stage Renal Disease, Hx Hemodialysis GI Medical History: Reports: Hx Gastroesophageal Reflux Disease Past Surgical History: Reports: Hx Cardiac Catheterization - 05/2012, Hx Vascular Surgery - AV fistula, PICC - Immunizations Hx Diphtheria, Pertussis, Tetanus Vaccination: Yes Hx Pneumococcal Vaccination: 07/12/16 Vertical Provider Document - CONSTITUTIONAL Agree With Documented VS: Yes Exam Limitations: No Limitations General Appearance: WD/WN, No Apparent Distress - INFECTION CONTROL TRAVEL OUTSIDE OF THE [place] IN LAST 30 DAYS: No - HEENT HEENT: Atraumatic, Normocephalic - RESPIRATORY Respiratory: Breath Sounds Normal, No Respiratory Distress O2 Sat by Pulse Oximetry: 100 - CARDIOVASCULAR Cardiovascular: Regular Rate, Regular Rhythm - GI/ABDOMEN Gastrointestinal: Abdomen Soft - MUSCULOSKELETAL/EXTREMETIES Musculoskeletal/Extremeties: MAEW Notes: Patient resting comfortably on entry to room. 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 Winces at the slightest touch to right leg. There is no edema no erythema. Neurovascular and sensation is intact. Patient jerked his right leg up with pressure to bottom of right foot. - NEURO Level of Consciousness: Awake, Alert, Appropriate - DERM Integumentary: Warm, Dry Course - Re-evaluation Re-evalutation: 05/06/17 11:20 CT scan and x-rays reviewed from previous 2 visits. Patient is encouraged to follow-up with his primary care doctor for possible referral for continuing back and right leg problems. I feel this patient is low risk for being discharged at this time, as his pain is probable sciatica. Patient states pain is intermittent, and is worse with ambulation. He has no saddle anesthesia and has full sensation to lower extremities. There is no redness, warmth, bruising or swelling to the right leg. Patient states he has not followed up with his primary care "because they do not know what they are doing." 05/06/17 11:30 - Vital Signs Vital signs: Temp Pulse Resp BP Pulse Ox 97.7 F 72 18 140/72 H 100 05/06/17 09:59 05/06/17 09:59 05/06/17 09:59 05/06/17 09:59 05/06/17 09:59 Discharge - Discharge Clinical Impression: Right leg pain Condition: Good Disposition: HOME, SELF-CARE Additional Instructions: You must follow-up with your primary care physician for possible referral to orthopedic or back specialist return as needed
== END 2017-05-06 11:47 | disposition home or self-care (01) ==
LOC: ER 09:53
DX: M79.604 Pain in right leg (principal); N18.6 End stage renal disease; Z99.2 Dependence on renal dialysis; I25.2 Old myocardial infarction
CPT/HCPCS: 99283

== ENCOUNTER → 2017-05-25 | Outpatient (CLI) | payer MEDICAID, MEDICARE ==
--- NOTE | 2017-05-25 14:11 | RADIOLOGY REPORT (SQ) ---
EXAM DESCRIPTION: U/S RETROPERITON (RENAL/AORTA) COMPLETED DATE/TIME: 05/25/2017 1:59 pm REASON FOR STUDY: N28.89 OTHER SPECIFIED DISORDERS OF KIDNEY AND URETER N28.89 OTHER SPECIFIED DISO RDERS OF KIDNEY AND URETER COMPARISON: CT abdomen pelvis 05/03/2017 Bilateral renal ultrasound 09/06/2015 TECHNIQUE: Dynamic and static grayscale images acquired of the kidneys and bladder and recorded on P ACS. Additional selected color Doppler and spectral images recorded. LIMITATIONS: Bladder decompressed, not well FINDINGS: RIGHT KIDNEY: Right kidney is diffusely small, with increased cortical echogenicity and pr ofound cortical thinning. The right kidney is 7 cm in length. No gross hydronephrosis, cysts, stone s, or masses. LEFT KIDNEY: Left kidney is diffusely small, with increased cortical echogenicity and profound corti lindsey thinning. Left kidney is 7 cm in length. 13 mm left lower pole cyst correlates with lower pole density seen on CT 05/03/2017. BLADDER: Decompressed. Not well seen OTHER FINDINGS: No other significant finding. IMPRESSION: Small echogenic kidneys with cortical thinning No hydronephrosis 13 mm cyst left lower pole kidney, correlates with findings on CT exam 05/03/2017 TECHNICAL DOCUMENTATION: JOB ID: [id number] [employer]- All Rights Reserved
== END ==
LOC: RAD 12:47
PROVIDERS: ATTEND Internal Medicine Nephrology
DX: N28.89 Other specified disorders of kidney and ureter (principal)
CPT/HCPCS: 76770

== ENCOUNTER → 2017-06-14 | Outpatient (CLI) | payer MEDICARE, MEDICAID ==
--- NOTE | 2017-06-14 15:16 | RADIOLOGY REPORT (SQ) ---
EXAM DESCRIPTION: VENOUS UNILATERAL LOWER COMPLETED DATE/TIME: 06/14/2017 3:07 pm REASON FOR STUDY: RLE PAIN M79.661 PAIN IN RIGHT LOWER LEG COMPARISON: None. TECHNIQUE: Dynamic and static andres scale and color images acquired of the right leg venous system. S elected spectral images acquired with additional compression and augmentation maneuvers. The contrala teral common femoral vein and saphenofemoral junction were also imaged. Images stored on PACS. LIMITATIONS: None. FINDINGS: RIGHT COMMON FEMORAL: Normal phasicity, compression and augmentation. No visualized echogenic material on g ray scale. No defects on color images. FEMORAL: Normal compression and augmentation. No visualized echogenic material on andres scale. No defe cts on color images. POPLITEAL: Normal compression, augmentation. No visualized echogenic material on andres scale. No defec ts on color images. CALF VESSELS: Normal compression, augmentation. No visualized echogenic material on andres scale. No de fects on color images. GSV and SSV: Normal compression, augmentation. No visualized echogenic material on andres scale. No def ects on color images. ANY DEEP VENOUS INSUFFICIENCY: Not evaluated. ANY EVIDENCE OF POPLITEAL CYST: No. OTHER: No other significant finding. LEFT COMMON FEMORAL VEIN AND SAPHENOFEMORAL JUNCTION: Normal phasicity, compression and augmentation. No visualized echogenic material on andres scale. No de fects on color images. IMPRESSION: NO EVIDENCE OF DVT OR SVT IN THE RIGHT LEG. TECHNICAL DOCUMENTATION: JOB ID: [id number] [employer]- All Rights Reserved
== END ==
LOC: SP 14:13
PROVIDERS: ATTEND Physician Assistant
DX: M79.661 Pain in right lower leg (principal)
CPT/HCPCS: 93971

== ENCOUNTER → 2017-06-20 | Outpatient (CLI) | payer MEDICAID, MEDICARE ==
--- NOTE | 2017-06-20 12:27 | RADIOLOGY REPORT (SQ) ---
EXAM DESCRIPTION: MRI LUMBAR SPINE WITHOUT COMPLETED DATE/TIME: 06/20/2017 11:58 am REASON FOR STUDY: M51.36 OTHER INTERVERTEBRAL DISC DEGENERATION, LUMBAR REGION M51.36 OTHER INTERVE RTEBRAL DISC DEGENERATION, LUMBAR REGION COMPARISON: CT abdomen pelvis 05/03/2017 Bilateral renal ultrasound 05/25/2017 TECHNIQUE: Sagittal and Axial imaging includes T1, T2, STIR and gradient echo sequences. Coronal T2/ HASTE imaging. LIMITATIONS: None. FINDINGS: VISUALIZED UPPER ABDOMEN: Small kidneys with multiple renal cortical cysts, the largest is 13 mm along the left lower pole kidney SEGMENTATION: No transitional anatomy. The lowest well-developed disc space is labeled L5-S1. ALIGNMENT: Anatomic. VERTEBRAE: Intact. BONE MARROW: Normal. No marrow replacement or reactive changes. DISC SIGNAL: Diffuse decreased T2 weighted intervertebral disc signal. POSTERIOR ELEMENTS: Generally intact. No pars defect evident. HARDWARE: None in the spine. CORD AND CONUS: Normal in size and signal intensity. Conus at the T12-L1 level. SOFT TISSUES: No aortic aneurysm seen. No bulky retroperitoneal adenopathy or mass. No paraspinal mas s or fluid. T11-12: Unremarkable T12-L1: Mild posterior disc bulging is present without significant central or foraminal encroachment . L1-L2: Unremarkable L2-L3: Broad diffuse posterior disc bulging is present left greater than right. This finding along w ith mild bilateral facet and ligament hypertrophy causes borderline central canal narrowing. There i s mild bilateral inferior foraminal narrowing without exiting L2 nerve root impingement. L3-L4: Mild diffuse posterior disc bulging is present with moderate bilateral facet and ligament hype rtrophy. Mild central canal stenosis. Small right paracentral/ proximal foraminal disc bulge. Mode rate right, mild left foraminal narrowing without definite exiting L3 nerve root impingement. L4-L5: Broad diffuse posterior disc bulge and mild bilateral facet and ligament hypertrophy cause mil d central canal stenosis. There is mild bilateral inferior foraminal narrowing right greater than le ft without exiting L4 nerve root impingement L5-S1: Mild posterior disc bulging. Moderate bilateral facet hypertrophy left greater than right. N o central stenosis. Mild right foraminal narrowing, moderate left foraminal narrowing without exitin g left L5 nerve root impingement SACRUM: Visualized upper sacrum intact. OTHER: No other significant findings. IMPRESSION: Diffuse degenerative changes as above TECHNICAL DOCUMENTATION: JOB ID: [id number] [employer]- All Rights Reserved
== END ==
LOC: RAD 12:06
PROVIDERS: ATTEND Physician Assistant
DX: M51.36 Other intervertebral disc degeneration, lumbar region (principal); M79.661 Pain in right lower leg
CPT/HCPCS: 72148

== ENCOUNTER → 2017-07-16 | Outpatient (CLI) | payer MEDICAID, MEDICARE ==
--- NOTE | 2017-07-16 16:07 | RADIOLOGY REPORT (SQ) ---
EXAM DESCRIPTION: MRI RT LOWER JOINT WITHOUT COMPLETED DATE/TIME: 07/16/2017 11:38 am REASON FOR STUDY: PRIMARY OA OF RIGHT HIP (M16.11) M16.11 UNILATERAL PRIMARY OSTEOARTHRITIS, RIGHT HIP COMPARISON: None. TECHNIQUE: Righthip images acquired and stored on PACS. Multiplanar images to include fat sensitive sequences as T1, fluid sensitive sequences as T2/STIR and gradient echo sequences. Large FOV fat and fluid sensitive sequences include pelvis and opposite hip. LIMITATIONS: None. FINDINGS: BONE CORTEX AND MARROW: No generalized marrow replacement. No occult fracture. No worriso me bone lesions. TARGETED HIP: FEMORAL HEAD: No occult fracture. Normal sphericity of femoral head/neck junction. No acetabular dysp lasia. No evidence femoroacetabular impingement. Slightly increased joint fluid compared to the left but no significant effusion. ACETABULUM: Joint space narrowing. Osteophyte formation. LABRUM: Intact. TROCHANTER: No trochanteric bursal effusion. No edema/fluid at the insertions of the gluteus medius and gluteus minimus. OPPOSITE HIP: Limited evaluation. No worrisome bone lesions. No significant effusion. PELVIS, LOWER LUMBAR SPINE, SACROILIAC JOINTS: PELVIS : No insufficiency/stress fractures. No significant degenerative changes. Sacroiliac joints normal. L SPINE: See recent report. MUSCLES AND SOFT TISSUES: Adductors and piriformis normal. Abductors and greater trochanteric bursa n ormal without edema or fluid. Iliopsoas bursa without fluid. Hamstring attachments without edema or t ear. PELVIC SOFT TISSUES: No masses or adenopathy. SCIATIC NERVE: Identified, without masses or abnormal signal. OTHER: No other significant finding. IMPRESSION: Osteoarthritis. No acute findings. TECHNICAL DOCUMENTATION: JOB ID: [id number] [employer]- All Rights Reserved Reading location - IP/workstation name: [email or web address]
== END ==
LOC: RAD 10:40
PROVIDERS: ATTEND Physician Assistant
DX: M16.11 Unilateral primary osteoarthritis, right hip (principal)

== ENCOUNTER 2017-11-20 17:12 | Inpatient (IN) | payer MEDICARE, MEDICAID ==
--- NOTE | 2017-11-20 18:12 | ER Document Report ---
ED Medical Screen (RME) - General Chief Complaint: Fever Stated Complaint: FEVER Time Seen by Provider: 11/20/17 18:05 Notes: The patient is a 52-year-old male, past medical history ESRD (MWF, last course yesterday), presents with 3 weeks of intermittent fevers and 2 days of right upper quadrant abdominal pain, right back pain, nausea and sores in his mouth. PE: RUQ tenderness, febrile I have greeted and performed a rapid initial assessment of this patient. A comprehensive ED assessment and evaluation of the patient, analysis of test results and completion of the medical decision making process will be conducted by additional ED providers. TRAVEL OUTSIDE OF THE [place] IN LAST 30 DAYS: No - Related Data Allergies/Adverse Reactions: Penicillins Allergy (Severe, Verified 11/20/17 17:14) Hives Past Medical History - Past Medical History Cardiac Medical History: Reports: Hx Heart Attack - 2015 Renal/ Medical History: Reports: Hx End Stage Renal Disease, Hx Hemodialysis. Denies: Hx Peritoneal Dialysis GI Medical History: Reports: Hx Gastroesophageal Reflux Disease Past Surgical History: Reports: Hx Cardiac Catheterization - 05/2012, Hx Vascular Surgery - AV fistula, PICC - Immunizations Hx Diphtheria, Pertussis, Tetanus Vaccination: Yes Physical Exam - Vital signs Vitals: Temp Pulse Resp BP Pulse Ox 101.5 F H 97 18 143/73 H 96 11/20/17 17:27 11/20/17 17:27 11/20/17 17:27 11/20/17 17:27 11/20/17 17:27 Course - Vital Signs Vital signs: Temp Pulse Resp BP Pulse Ox 101.5 F H 97 18 143/73 H 96 11/20/17 17:27 11/20/17 17:27 11/20/17 17:27 11/20/17 17:27 11/20/17 17:27 Doctor's Discharge - Discharge Referrals: HUE CHRISTIANSON PA [Primary Care Provider] - Follow up as needed
--- NOTE | 2017-11-20 18:27 | RADIOLOGY REPORT (SQ) ---
EXAM DESCRIPTION: CHEST SINGLE VIEW COMPLETED DATE/TIME: 11/20/2017 6:15 pm REASON FOR STUDY: fever COMPARISON: 06/20/2016 EXAM PARAMETERS: NUMBER OF VIEWS: One view. TECHNIQUE: Single frontal radiographic view of the chest acquired. RADIATION DOSE: NA LIMITATIONS: None. FINDINGS: LUNGS AND PLEURA: Small left effusion. Right lung is clear. MEDIASTINUM AND HILAR STRUCTURES: No masses. Contour normal. HEART AND VASCULAR STRUCTURES: Heart normal in size. Normal vasculature. BONES: No acute findings. HARDWARE: None in the chest. OTHER: No other significant finding. IMPRESSION: Small left pleural effusion. TECHNICAL DOCUMENTATION: JOB ID: [id number] [employer]- All Rights Reserved Reading location - IP/workstation name: [email or web address]
[2017-11-20 18:43] LABS: VENOUS BLOOD BASE EXCESS 4.8 mmol/L; VENOUS BLOOD HCO3 29.2 mmol/L (20-32); VENOUS BLOOD PCO2 42.8 mmHg (35-63); VENOUS BLOOD PH 7.45 (7.30-7.42)
[2017-11-20 18:44] LABS: HEMOGLOBIN 10.1 g/dL (13.5-17.0); MEAN CORPUSCULAR HEMOGLOBIN 30.9 pg (27.0-33.4); MEAN CORPUSCULAR HGB CONC 33.8 g/dL (32.0-36.0); MEAN CORPUSCULAR VOLUME 91 fl (80-97); PLATELET COUNT 152 10^3/uL (150-450); RED BLOOD COUNT 3.28 10^6/uL (4.35-5.55); RED CELL DISTRIBUTION WIDTH 15.3 % (11.5-14.0); WHITE BLOOD COUNT 4.1 10^3/uL (4.0-10.5)
[2017-11-20 18:59] LABS: ALANINE AMINOTRANSFERASE 23 U/L (21-72); ALBUMIN 3.7 g/dL (3.5-5.0); ALKALINE PHOSPHATASE 53 U/L (38-126); ANION GAP 15 (5-19); ASPARTATE AMINO TRANSFERASE 63 U/L (17-59); BILIRUBIN,DIRECT 0.6 mg/dL (0.0-0.4); BILIRUBIN,TOTAL 0.6 mg/dL (0.2-1.3); BLOOD UREA NITROGEN 44 mg/dL (7-20); CALCIUM 8.3 mg/dL (8.4-10.2); CARBON DIOXIDE 29 mmol/L (22-30); CHLORIDE 96 mmol/L (98-107); CREATINE KINASE 472 U/L (55-170); GLUCOSE 111 mg/dL (75-110); SODIUM 139.8 mmol/L (137-145); TOTAL PROTEIN 7.2 g/dL (6.3-8.2)
[2017-11-20 19:02] LABS: ABSOLUTE LYMPHOCYTES# (MANUAL) 0.6 10^3/uL (0.5-4.7); ABSOLUTE MONOCYTES # (MANUAL) 0.3 10^3/uL (0.1-1.4); ABSOLUTE NEUTROPHILS# (MANUAL) 3.2 10^3/uL (1.7-8.2); BASOPHILS % (MANUAL) 0 % (0-2); EOSINOPHILS % (MANUAL) 0 % (0-6); LYMPHOCYTES % (MANUAL) 11 % (13-45); MONOCYTES % (MANUAL) 7 % (3-13); SEGMENTED NEUTROPHILS % (MAN) 79 % (42-78); TOTAL CELLS COUNTED 100
[2017-11-20 19:03] LABS: ANISOCYTOSIS SLIGHT; OVALOCYTES SLIGHT; PLATELET COMMENT ADEQUATE; POIKILOCYTOSIS SLIGHT
[2017-11-20] MEDS ORDERED: ACETAMINOPHEN 325 MG TABLET PO ONE ×2 (19:06→23:46)
--- NOTE | 2017-11-20 19:10 | ER Document Report ---
ED General - General Mode of Arrival: Ambulatory Information source: Patient TRAVEL OUTSIDE OF THE [place] IN LAST 30 DAYS: No <MINDI FOSTER - Last Filed: 11/20/17 21:22> <SHARMAINE MAGDALENO - Last Filed: 11/21/17 00:21> - General Chief Complaint: Fever Stated Complaint: FEVER Time Seen by Provider: 11/20/17 18:05 Notes: Patient is a 52 year old male with ESRD (MWF dialysis-last course yesterday) presents to the emergency department complaining of multiple symptoms including right upper quadrant abdominal pain onset this morning and intermittent fevers and cough onset 2 weeks ago. Patient states his cough is productive with greenish sputum. Prior to arrival to emergency department EMS found a temperature of 102.8 and proceeded to give Tylenol. Upon arrival to the emergency department the patient had a temperature of 101.5. Patient states his previous PCP was Dr. Montemayor before he moved to [place]. Patient states he has yet to establish another [facility] since being back in [place], [place] 7 months ago. 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 (MINDI FOSTER) - Related Data Allergies/Adverse Reactions: Penicillins Allergy (Severe, Verified 11/20/17 17:14) Hives Past Medical History - General Information source: Patient - Social History Smoking Status: Never Smoker Chew tobacco use (# tins/day): No Frequency of alcohol use: None Drug Abuse: Marijuana - recreational Family History: Reviewed & Not Pertinent Patient has suicidal ideation: No Patient has homicidal ideation: No - Past Medical History Cardiac Medical History: Reports: Hx Heart Attack - 2015 Renal/ Medical History: Reports: Hx End Stage Renal Disease, Hx Hemodialysis GI Medical History: Reports: Hx Gastroesophageal Reflux Disease Past Surgical History: Reports: Hx Cardiac Catheterization - 05/2012, Hx Vascular Surgery - AV fistula, PICC - Immunizations Hx Diphtheria, Pertussis, Tetanus Vaccination: Yes Hx Pneumococcal Vaccination: 07/12/16 <MINDI FOSTER - Last Filed: 11/20/17 21:22> Review of Systems - Review of Systems Constitutional: See HPI, Fever EENT: No symptoms reported Cardiovascular: No symptoms reported Respiratory: No symptoms reported Gastrointestinal: See HPI, Abdominal pain Genitourinary: No symptoms reported Male Genitourinary: No symptoms reported Musculoskeletal: No symptoms reported Skin: No symptoms reported Hematologic/Lymphatic: No symptoms reported Neurological/Psychological: No symptoms reported -: Yes All other systems reviewed and negative <MINDI FOSTER - Last Filed: 11/20/17 21:22> Physical Exam <MINDI FOSTER - Last Filed: 11/20/17 21:22> <SHARMAINE MAGDALENO - Last Filed: 11/21/17 00:21> - Vital signs Vitals: Temp Pulse Resp BP Pulse Ox 101.5 F H 97 18 143/73 H 96 11/20/17 17:27 11/20/17 17:27 11/20/17 17:27 11/20/17 17:27 11/20/17 17:27 - Notes Notes: GENERAL: Alert, interacts well. No acute distress. HEAD: Normocephalic, atraumatic. EYES: Pupils equal, round, and reactive to light. Extraocular movements intact. ENT: Oral mucosa moist, tongue midline. NECK: Full range of motion. Supple. Trachea midline. LUNGS: Rhonchi worse on left with cough. No respiratory distress. HEART: Regular rate and rhythm. No murmurs, gallops, or rubs. ABDOMEN: Soft, RUQ tender to palpation. Non-distended. Bowel sounds present in all 4 quadrants. EXTREMITIES: Moves all 4 extremities spontaneously. AV fistula in the left medial upper extremity. NEUROLOGICAL: Alert and oriented x3. Normal speech. PSYCH: Normal affect, normal mood. SKIN: Warm, dry, normal turgor. No rashes or lesions noted. (CRISTIANDWAYNEDELILAH) Course - Laboratory Result Diagrams: 11/20/17 18:33 11/20/17 18:33 <MINDI FOSTER - Last Filed: 11/20/17 21:22> - Laboratory Result Diagrams: 11/20/17 18:33 11/20/17 18:33 - Diagnostic Test Radiology reviewed: Image reviewed, Reports reviewed - Chest x-ray shows small left pleural effusion, otherwise unremarkable chest x-ray. Right upper quadrant ultrasound shows a normal gallbladder and no other significant abnormalities. CT scan of the abdomen and pelvis with oral contrast does not show an acute inflammatory process or other acute abnormality. - Consults Dr. Blum Time consulted: 00:10 Consulted provider: will come to ER <SHARMAINE MAGDALENO - Last Filed: 11/21/17 00:21> - Re-evaluation Re-evalutation: 11/20/17 23:49 Patient is now shivering and his temperature is gone back up according to the nurse but they did not record the number. He is asking for additional blankets. I am going to give him Tylenol as it is been almost 5 hours since his last dose. He is also complaining about his nerves and anxiety, we will give him a dose of Ativan. Earlier I had asked him about urine production, he states she goes about twice a day. I told him that we needed a urine specimen, but he stated he was unable to urinate and could not produce any. He subsequently went to the bathroom and urinated in the toilet and flushed without telling anyone. When I confronted him about this, he stated he had to go and could not wait, but again did not bother to tell anyone. 11/21/17 00:18 I reviewed old records and found that he first showed up here on 05/25/2012 in respiratory failure, severe anemia, alcoholic hepatitis and acute renal failure. He was intubated and sent to [place] where he had a PermCath put in and has been on dialysis since then. He states he is allergic to penicillin, it causes hives. Old records show Rocephin being ordered on his initial visit, but it is not possible to tell if it was actually given. He does not know if he is ever had Keflex before does not know if he is allergic to amoxicillin but does not know of any other allergies other than the hives to penicillin. (SHARMAINE MAGDALENO) - Vital Signs Vital signs: Temp Pulse Resp BP Pulse Ox 98.6 F 97 22 H 133/84 H 98 11/20/17 20:58 11/20/17 17:27 11/20/17 19:09 11/20/17 19:09 11/20/17 19:09 - Laboratory Laboratory results interpreted by me: 11/20/17 11/20/17 11/20/17 18:33 18:33 18:33 RBC 3.28 L Hgb 10.1 L Hct 30.0 L RDW 15.3 H Seg Neuts % (Manual) 79 H Lymphocytes % (Manual) 11 L VBG pH 7.45 H Chloride 96 L BUN 44 H Creatinine 11.54 H Est GFR ( Amer) 6 L Est GFR (Non-Af Amer) 5 L Glucose 111 H Calcium 8.3 L Direct Bilirubin 0.6 H AST 63 H Creatine Kinase 472 H Discharge <MINDI FOSTER - Last Filed: 11/20/17 21:22> - Discharge Admitting Provider: Hospitalist Unit Admitted: Telemetry <SHARMAINE MAGDALENO - Last Filed: 11/21/17 00:21> - Discharge Clinical Impression: Right upper quadrant abdominal pain Chronic renal failure Qualifiers: Chronic kidney disease stage: stage 5 Qualified Code(s): N18.5 - Chronic kidney disease, stage 5 Fever Qualifiers: Fever type: unspecified Qualified Code(s): R50.9 - Fever, unspecified Condition: Stable Disposition: ADMITTED INPATIENT Referrals: HUE CHRISTIANSON PA [NO LOCAL MD] - Follow up as needed Scribe Attestation: 11/20/17 20:10 I personally performed the services described in the documentation, reviewed and edited the documentation which was dictated to the scribe in my presence, and it accurately records my words and actions. (SHARMAINE MAGDALENO) Scribe Documentation - Scribe Written by Amalia:: Amalia Valle, 11/20/2017 19:14 acting as scribe for :: Jamal <MINDI FOSTER - Last Filed: 11/20/17 21:22>
--- NOTE | 2017-11-20 20:06 | RADIOLOGY REPORT (SQ) ---
EXAM DESCRIPTION: U/S ABDOMEN LIMITED W/O DOP COMPLETED DATE/TIME: 11/20/2017 7:06 pm REASON FOR STUDY: RUQ abdominal pain, fever COMPARISON: None. TECHNIQUE: Dynamic and static grayscale images acquired of the abdomen and recorded on PACS. Additio raven selected color Doppler and spectral images recorded. LIMITATIONS: None. FINDINGS: PANCREAS: No masses. Visualized pancreatic duct normal caliber. LIVER: 14.2 cm. Normal echotexture. LIVER VASCULATURE: Normal directional flow of the main portal vein and hepatic veins. GALLBLADDER: No stones. Normal wall thickness. No pericholecystic fluid. ULTRASOUND-DETECTED ARROYO'S SIGN: Negative. INTRAHEPATIC DUCTS AND COMMON DUCT: CBD and intrahepatic ducts normal caliber. No filling defects. INFERIOR VENA CAVA: Normal flow. AORTA: No aneurysm. RIGHT KIDNEY: Small, echogenic, cortical thinning, multiple cysts. PERITONEAL AND RIGHT PLEURAL SPACE: No ascites or effusions. OTHER: No other significant findings. IMPRESSION: Chronic changes in the right kidney as described. No acute findings in the abdomen. TECHNICAL DOCUMENTATION: JOB ID: [id number]- All Rights Reserved Reading location - IP/workstation name: [email or web address]
--- NOTE | 2017-11-20 23:43 | RADIOLOGY REPORT (SQ) ---
EXAM DESCRIPTION: CT ABDOMEN PELVIS WITHOUT IV CONTRAST COMPLETED DATE/TME: 11/20/2017 20:35 CLINICAL HISTORY: RUQ abd pain, fever, dialysis COMPARISON: 05/03/2017 TECHNIQUE: CT of the abdomen and pelvis without IV contrast. Oral contrast administered. Evaluation of the solid organs and vasculature is suboptimal due to lack of IV contrast. DLP: 232.73 mGy-cm FINDINGS: Lung Bases: The visualized lung bases are clear. Cardiomegaly. Bones: No destructive bone lesions identified. Endplate spondylosis throughout the visualized thoracic and lumbar spine. Abdomen: Liver: The liver has normal size and density. Gallbladder: No calcified gallstones. Spleen, Pancreas, and Adrenal Glands: The spleen, pancreas, and adrenal glands are unremarkable. Kidneys: Bilateral renal atrophy. Vasculature: Aortoiliac atherosclerosis. Stomach: The stomach and duodenum have normal course. Other: No free intraperitoneal air. No free fluid or lymphadenopathy. Pelvis: Bladder: Urinary bladder is unremarkable. Bowel: No dilated loops of large or small bowel. Oral contrast is visualized throughout the small bowel or proceeding to the level of the proximal descending colon. Appendix: Normal appendix. Pelvis: Prostate is not enlarged. IMPRESSION: 1. No acute inflammatory or obstructive process identified. This exam was performed according to our departmental dose-optimization program, which includes automated exposure control, adjustment of the mA and/or kV according to patient size and/or use of iterative reconstruction technique.
[2017-11-20] MEDS ORDERED: LORAZEPAM 1 MG TABLET PO ONE (23:49)
[2017-11-21] MEDS ORDERED: MAG HYDROX/AL HYDROX/SIMETH SUSP 30 ML UDCUP PO PRN (00:04)
[2017-11-21] MEDS ORDERED: IPRATROPIUM/ALBUTEROL 0.5-2.5 MG/3 ML AMPUL NEB PRN (00:04)
[2017-11-21] MEDS ORDERED: VANCOMYCIN HCL INJ 1000 MG VIAL IV ONE (00:04)
[2017-11-21] MEDS ORDERED: NORMAL SALINE 1000 ML 1,000 ML IV SCH (00:15)
[2017-11-21] MEDS ORDERED: FENTANYL CITRATE INJ/PF 100 MCG/2 ML AMPUL IV ONE (00:16)
[2017-11-21] MEDS ORDERED: CEFEPIME 1 GM/D5W RTU 1 GM/50 ML RTUPB IV ONE ×3 (00:18→06:00)
[2017-11-21] MEDS ORDERED: TRAZODONE HCL 50 MG TABLET PO ONE ×2 (01:00→01:49)
[2017-11-21] MEDS: IPRATROPIUM/ALBUTEROL 0.5-2.5 MG/3 ML AMPUL NEB SCH ×4 (01:50→19:39)
[2017-11-21] MEDS ORDERED: FENTANYL CITRATE INJ/PF 100 MCG/2 ML AMPUL IV PRN (02:12)
--- NOTE | 2017-11-21 05:29 | PDOC H&P ---
History of Present Illness Admission Date/PCP: 11/21/17 00:04 Patient complains of: Right-sided flank pain and fever History of Present Illness: NEEL GONZALES is a 52 year old male with a past medical history of oliguric end- stage renal failure Sunday dialysis with Dr. Gotti and right- sided deafness. He presents with 2 weeks of intermittent right flank pain associated with fever nausea without vomiting prompting him to seek evaluation emergency room. He denies pain and fever related to eating. He denies recent antibiotic use, diarrhea or open wound. In the emergency room is found to have a temperature of 102.8, an unremarkable CT abdomen pelvis but a right upper quadrant ultrasound showing renal cysts. He receives Tylenol, vancomycin, cefepime and referred to the hospitalist for admission Past Medical History Cardiac Medical History: Reports: Myocardial Infarction - 2015 Renal/ Medical History: Reports: End Stage Renal Disease GI Medical History: Reports: Gastroesophageal Reflux Disease Hematology: Denies: Anemia Past Surgical History Past Surgical History: Reports: Cardiac Catheterization - 05/2012, Vascular Surgery - AV fistula, PICC Social History Smoking Status: Never Smoker Frequency of Alcohol Use: None - Formerly alcohol dependent Hx Recreational Drug Use: Yes Drugs: Marijuana Hx Prescription Drug Abuse: No - Advance Directive Resuscitation Status: Full Code Family History Family History: Hypertension Parental Family History Reviewed: Yes Children Family History Reviewed: Yes Sibling(s) Family History Reviewed.: Yes Medication/Allergy Home Medications: Trazodone HCl [Desyrel 50 mg Tablet] 50 mg PO QHS PRN 08/06/12 Nitroglycerin [Nitrostat 0.4 mg (1/150 Gr) Tabs 25/Bottle] 1 tab SL Q5MP PRN 08/26 Albuterol Sulfate [Proair HFA] 1 - 2 puff IH Q4 PRN 10/26/14 Alprazolam 1 mg PO BID 07/10/15 Hydrocodone/Acetaminophen [Hydrocodon-Acetaminoph 7.5-325] 1 tab PO Q6 PRN 07/10 Promethazine HCl 12.5 mg PO DAILY 07/10/15 Sevelamer Carbonate 4 tab PO TID 07/10/15 Calcium Carb/Magnesium Hydrox [Antacid 1000-200 mg Tab Chew] 1 each PO DAILY PRN 08/05/15 Aspirin [Ecotrin 81 mg EC Tablet] 81 mg PO DAILY 10/17/16 Allergies/Adverse Reactions: Penicillins Allergy (Severe, Verified 11/20/17 17:14) Hives Review of Systems Constitutional: ABSENT: chills, fever(s), headache(s), weight gain, weight loss Eyes: ABSENT: visual disturbances Ears: ABSENT: hearing changes Cardiovascular: ABSENT: chest pain, dyspnea on exertion, edema, orthropnea, palpitations Respiratory: ABSENT: cough, hemoptysis Gastrointestinal: ABSENT: abdominal pain, constipation, diarrhea, hematemesis, hematochezia, nausea, vomiting Genitourinary: ABSENT: dysuria, hematuria Musculoskeletal: ABSENT: joint swelling Integumentary: ABSENT: rash, wounds Neurological: ABSENT: abnormal gait, abnormal speech, confusion, dizziness, focal weakness, syncope Psychiatric: ABSENT: anxiety, depression, homidical ideation, suicidal ideation Endocrine: ABSENT: cold intolerance, heat intolerance, polydipsia, polyuria Hematologic/Lymphatic: ABSENT: easy bleeding, easy bruising Physical Exam Vital Signs: Temp Pulse Resp BP Pulse Ox 98.6 F 81 16 147/78 H 100 11/21/17 03:43 11/21/17 03:43 11/21/17 03:43 11/21/17 03:43 11/21/17 03:43 General appearance: PRESENT: cooperative, mild distress, thin, well-developed, well-nourished Head exam: PRESENT: atraumatic, normocephalic Eye exam: PRESENT: conjunctiva pink, EOMI, PERRLA. ABSENT: scleral icterus Ear exam: PRESENT: normal external ear exam Mouth exam: PRESENT: moist, tongue midline Neck exam: ABSENT: carotid bruit, JVD, lymphadenopathy, thyromegaly Respiratory exam: PRESENT: clear to auscultation kj. ABSENT: rales, rhonchi, wheezes Cardiovascular exam: PRESENT: RRR. ABSENT: diastolic murmur, rubs, systolic murmur Pulses: PRESENT: normal dorsalis pedis pul Vascular exam: PRESENT: normal capillary refill GI/Abdominal exam: PRESENT: normal bowel sounds, soft, tenderness - Right flank pain to percussion. ABSENT: distended, guarding, mass, organolmegaly, rebound Rectal exam: PRESENT: deferred Extremities exam: PRESENT: full ROM. ABSENT: calf tenderness, clubbing, pedal edema Neurological exam: PRESENT: alert, awake, oriented to person, oriented to place , oriented to time, oriented to situation, CN II-XII grossly intact. ABSENT: motor sensory deficit Psychiatric exam: PRESENT: appropriate affect, normal mood. ABSENT: homicidal ideation, suicidal ideation Skin exam: PRESENT: dry, intact, warm. ABSENT: cyanosis, rash Results Impressions: Chest X-Ray 11/20/17 18:06 IMPRESSION: Small left pleural effusion. Abdomen Ultrasound 11/20/17 18:09 IMPRESSION: Chronic changes in the right kidney as described. No acute findings in the abdomen. Abdomen/Pelvis CT 11/20/17 20:35 IMPRESSION: 1. No acute inflammatory or obstructive process identified. This exam was performed according to our departmental dose-optimization program, which includes automated exposure control, adjustment of the mA and/or kV according to patient size and/or use of iterative reconstruction technique. 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 - Time Time Spent: 50 to 70 Minutes - Inpatient Certification Medical Necessity: Need Close Monitoring Due to Risk of Patient Decompensation
[2017-11-21] MEDS ORDERED: HEPARIN SOD (PORCINE) 5,000 UNIT/ML 1 ML SYRINGE SUBCUT SCH (06:00)
[2017-11-21] MEDS: ONDANSETRON 4 MG TAB.RAPDIS PO PRN ×2 (09:26→14:57)
[2017-11-21] MEDS ORDERED: ONDANSETRON HCL INJ/PF 4 MG/2 ML SDV IV PRN (09:38)
[2017-11-21] MEDS ORDERED: ACETAMINOPHEN 650 MG SUPP.RECT PR PRN (09:42)
[2017-11-21] MEDS ORDERED: ACETAMINOPHEN 325 MG TABLET ONE (09:44)
[2017-11-21] MEDS: ACETAMINOPHEN 325 MG TABLET PO PRN ×2 (09:47→15:38)
[2017-11-21] MEDS ORDERED: ALPRAZOLAM 0.5 MG TABLET PO SCH ×2 (10:00→22:00)
[2017-11-21] MEDS ORDERED: CEFEPIME 1 GM/D5W RTU 1 GM/50 ML RTUPB IV SCH ×2 (10:00→22:00)
[2017-11-21] MEDS ORDERED: SEVELAMER HCL 400 MG TABLET PO SCH (10:00)
[2017-11-21 11:59] LABS: ABSOLUTE LYMPHOCYTES (AUTO) 0.3 10^3/uL (0.5-4.7); ABSOLUTE MONOCYTES (AUTO) 0.2 10^3/uL (0.1-1.4); ABSOLUTE NEUT (AUTO) 3.3 10^3/uL (1.7-8.2); BASOPHILS % (AUTO) 0.7 % (0-2); EOSINOPHILS % (AUTO) 0.3 % (0-6); HEMATOCRIT 29.6 % (37.9-51.0); HEMOGLOBIN 10.2 g/dL (13.5-17.0); LYMPHOCYTES % (AUTO) 8.2 % (13-45); MEAN CORPUSCULAR HEMOGLOBIN 31.2 pg (27.0-33.4); MEAN CORPUSCULAR HGB CONC 34.6 g/dL (32.0-36.0); MEAN CORPUSCULAR VOLUME 90 fl (80-97); MONOCYTES % (AUTO) 6.3 % (3-13); PLATELET COUNT 125 10^3/uL (150-450); RED BLOOD COUNT 3.28 10^6/uL (4.35-5.55); RED CELL DISTRIBUTION WIDTH 15.2 % (11.5-14.0); SEGMENTED NEUTROPHILS % (AUTO) 84.5 % (42-78); TOTAL CELLS COUNTED % (AUTO) 100 %; WHITE BLOOD COUNT 3.9 10^3/uL (4.0-10.5)
[2017-11-21 12:12] LABS: PHOSPHORUS 4.7 mg/dL (2.5-4.5)
[2017-11-21 12:14] LABS: ALANINE AMINOTRANSFERASE 27 U/L (21-72); ALBUMIN 3.2 g/dL (3.5-5.0); ALKALINE PHOSPHATASE 54 U/L (38-126); ANION GAP 16 (5-19); ASPARTATE AMINO TRANSFERASE 41 U/L (17-59); BILIRUBIN,DIRECT 0.7 mg/dL (0.0-0.4); BILIRUBIN,TOTAL 0.7 mg/dL (0.2-1.3); BLOOD UREA NITROGEN 50 mg/dL (7-20); CALCIUM 7.7 mg/dL (8.4-10.2); CARBON DIOXIDE 25 mmol/L (22-30); CHLORIDE 95 mmol/L (98-107); GLUCOSE 90 mg/dL (75-110); POTASSIUM 4.8 mmol/L (3.6-5.0)
[2017-11-21] MEDS: HYDROCODONE/ACETAMINOPHEN 7.5-325 MG TABLET PO PRN (14:59)
[2017-11-21] MEDS ORDERED: VANCOMYCIN HCL 0 MG in DEXTROSE 5%-WATER 250 ML IV NR (16:30)
[2017-11-21] MEDS ORDERED: (PENDING PHARMACY ID) (Sevelamer Carbonate [Renvela] 2,400 MG) PO SCH (16:30)
--- NOTE | 2017-11-21 16:45 | PDOC PROGRESS REPORT ---
Subjective Progress Note for:: 11/21/17 Subjective:: The patient is a 52-year-old male with end-stage renal disease on hemodialysis Wednesdays and Fridays. Past medical history includes coronary artery disease Gastroesophageal reflux disease He presented to the hospital on November 20 with intermittent right flank pain and fevers that started approximately 2 weeks ago. CAT scan of the abdomen and pelvis was within normal limits. He has been unable to provide a urine specimen yet due to minimal urine production. Chest x-ray did not show any infiltrate. Blood cultures are pending. He was given 1 dose of vancomycin and started on cefepime. He continues to have fevers. He went for dialysis this morning. Reason For Visit: FEVER ESRD Physical Exam Vital Signs: Temp Pulse Resp BP Pulse Ox 103.0 F H 103 H 16 151/70 H 92 11/21/17 15:26 11/21/17 15:26 11/21/17 15:26 11/21/17 15:26 11/21/17 15:26 Intake & Output 11/20/17 11/21/17 11/22/17 06:59 06:59 06:59 Intake Total 250 0 Output Total 200 2000 Balance 50 -2000 Weight 51.4 kg General appearance: PRESENT: no acute distress Head exam: PRESENT: normocephalic Mouth exam: PRESENT: moist Respiratory exam: PRESENT: symmetrical, unlabored. ABSENT: crackles Cardiovascular exam: PRESENT: RRR GI/Abdominal exam: PRESENT: normal bowel sounds, soft. ABSENT: tenderness - IV before Rectal exam: PRESENT: deferred - IV bag Gentrourinary exam: ABSENT: indwelling catheter Extremities exam: PRESENT: other - Left arm AV fistula. ABSENT: pedal edema Neurological exam: PRESENT: alert, awake, oriented to person, oriented to place , oriented to time, oriented to situation Psychiatric exam: PRESENT: appropriate affect Results Laboratory Results: 11/21/17 10:05 11/21/17 10:05 11/21/17 11/21/17 11/21/17 10:05 10:05 10:05 WBC 3.9 L RBC 3.28 L Hgb 10.2 L Hct 29.6 L MCV 90 MCH 31.2 MCHC 34.6 RDW 15.2 H Plt Count 125 L Seg Neutrophils % 84.5 H Lymphocytes % 8.2 L Monocytes % 6.3 Eosinophils % 0.3 Basophils % 0.7 Absolute Neutrophils 3.3 Absolute Lymphocytes 0.3 L Absolute Monocytes 0.2 Absolute Eosinophils 0.0 Absolute Basophils 0.0 Sodium 136.0 L Potassium 4.8 Chloride 95 L Carbon Dioxide 25 Anion Gap 16 BUN 50 H Creatinine 12.30 H Est GFR ( Amer) 5 L Est GFR (Non-Af Amer) 4 L Glucose 90 Calcium 7.7 L Phosphorus 4.7 H Magnesium 1.9 Total Bilirubin 0.7 AST 41 ALT 27 Alkaline Phosphatase 54 Total Protein 6.0 L Albumin 3.2 L Impressions: Chest X-Ray 11/20/17 18:06 IMPRESSION: Small left pleural effusion. Abdomen Ultrasound 11/20/17 18:09 IMPRESSION: Chronic changes in the right kidney as described. No acute findings in the abdomen. Abdomen/Pelvis CT 11/20/17 20:35 IMPRESSION: 1. No acute inflammatory or obstructive process identified. This exam was performed according to our departmental dose-optimization program, which includes automated exposure control, adjustment of the mA and/or kV according to patient size and/or use of iterative reconstruction technique. Assessment & Plan - Diagnosis (1) Fever Qualifiers: Fever type: unspecified Qualified Code(s): R50.9 - Fever, unspecified Is this a current diagnosis for this admission?: Yes Plan: Vancomycin and meropenem. Follow-up on blood cultures. Obtain urine sample for UA and culture. (2) End stage renal disease Is this a current diagnosis for this admission?: Yes Plan: Management per nephrology service. Continue sevelamer (3) Anxiety Is this a current diagnosis for this admission?: Yes Plan: Continue benzodiazepines. (4) Right flank pain, chronic Is this a current diagnosis for this admission?: Yes Plan: Appears to be musculoskeletal. Abdomen CAT scan within normal limits - Time Time Spent with patient: 35 or more minutes
[2017-11-21] MEDS ORDERED: SEVELAMER HCL 400 MG TABLET PO PRN (16:57)
[2017-11-21] MEDS ORDERED: SEVELAMER CARBONATE 3200 MG PO SCH (17:00)
[2017-11-21] MEDS: LACTOBACILLUS ACIDOPHILUS 250 MG TAB PO SCH ×2 (17:13→17:47)
[2017-11-21] MEDS: DOCUSATE SODIUM 100 MG CAPSULE PO SCH ×2 (17:13→17:29)
[2017-11-21] MEDS: SEVELAMER HCL 400 MG TABLET PO SCH (17:27)
--- NOTE | 2017-11-21 18:39 | PDOC CONSULTATION ---
Consultation Consult Date: 11/21/17 Attending physician:: DAKOTAH NEWMAN Consult reason:: I was asked to see this patient to supervise dialysis while here in the hospital. History of Present Illness Admission Date/PCP: 11/21/17 00:04 History of Present Illness: NEEL GONZALES is a 52 year old male known to me with history of ESRD on maintenance hemodialysis on Mondays, Wednesdays and Fridays, hypertensive nephrosclerosis, anemia, hypertension, history of dilated cardiomyopathy, chronic hearing loss who was admitted last night because of fever. Apparently the patient has been having intermittent fever for the last 2-3 weeks. Patient said that he has a lot of little bit of cough with greenish phlegm. He also complained of some occasional nausea, vomiting and diarrhea. He complains of right flank pain. He is almost anuric and only goes to void at most twice a day of insignificant amount. About couple weeks ago he did have a spike of temperature at [facility] and we did blood cultures which came out to be negative. I have not heard anything about this fever since then. When the patient came in he apparently has fever of 102.8. Initial workup including a chest x-ray, abdominal ultrasound and CT scan with of the abdomen with oral contrast did not show any acute findings that would point to the cause of the fever. Patient was started on IV antibiotics and was given vancomycin and cefepime. I saw the patient during initiation of dialysis treatment this morning. Patient was a little upset because he wanted to go to [facility] but was brought here by the EMS last night. He has temperature of 100.5 and initiation of hemodialysis. So far blood cultures are pending. He tolerated dialysis without any much complaints or problems. Past Medical History Cardiac Medical History: Reports: Hypertension-primary, Myocardial Infarction - 2016, Other - History of dilated cardiomyopathy EENT Medical History: Reports: Other - Hearing loss Renal/ Medical History: Reports: End Stage Renal Disease, Secondary Hyperparathyroidism GI Medical History: Reports: Gastroesophageal Reflux Disease Psychiatric Medical History: Reports: General Anxiety Disorder Hematology Medical History: Reports Anemia of Chronic Kidney Disease Past Surgical History Past Surgical History: Reports: Cardiac Catheterization - 05/2012, Dialysis Access Surgery AVF, Vascular Surgery - PermCath placement Social History Information Source: Patient, [facility] Records Smoking Status: Never Smoker Frequency of Alcohol Use: None - Formerly alcohol dependent Hx Recreational Drug Use: Yes Drugs: Marijuana Hx Prescription Drug Abuse: No - Advance Directive Resuscitation Status: Full Code Family History Family History: CAD - Brother and monitor, DM - Grandparents, Malignancy - Constant cancer an aunt, prostate cancer with grandfather Parental Family History Reviewed: Yes Children Family History Reviewed: NA Sibling(s) Family History Reviewed.: Yes Medication/Allergy Home Medications: Lorazepam [Ativan 1 mg Tablet] 1 mg PO .BEFORE DIALYSIS 11/21/17 Sevelamer Carbonate [Renvela] 2,400 mg PO .SNACKS 11/21/17 Sevelamer Carbonate [Renvela] 3,200 mg PO MEALS 11/21/17 Allergies/Adverse Reactions: Penicillins Allergy (Severe, Verified 11/20/17 17:14) Hives Review of Systems All systems: reviewed and no additional remarkable complaints except as stated Review of Systems: Constitutional: ABSENT: Fatigue, headache(s), weight gain, weight loss; admits fever and chills Eyes: ABSENT: visual disturbances Ears: Patient is deaf Cardiovascular: ABSENT: chest pain, dyspnea on exertion, edema, orthropnea, palpitations Respiratory: ABSENT: Dyspnea, hemoptysis; reports cough with productive green phlegm Gastrointestinal: ABSENT: abdominal pain, constipation, diarrhea, hematemesis, hematochezia; admits occasional nausea, vomiting and diarrhea Genitourinary: ABSENT: dysuria, hematuria Musculoskeletal: ABSENT: joint swelling Integumentary: ABSENT: rash, wounds Neurological: ABSENT: abnormal gait, abnormal speech, confusion, dizziness, focal weakness, numbness, syncope Psychiatric: ABSENT: anxiety, depression Endocrine: ABSENT: cold intolerance, heat intolerance, polydipsia, polyuria Hematologic/Lymphatic: ABSENT: easy bleeding, easy bruising, lymphadenopathy Physical Exam Vital Signs: Temp Pulse Resp BP Pulse Ox 103.0 F H 103 H 16 151/70 H 92 11/21/17 15:26 11/21/17 15:26 11/21/17 15:26 11/21/17 15:26 11/21/17 15:26 Intake & Output 11/20/17 11/21/17 11/22/17 06:59 06:59 06:59 Intake Total 250 0 Output Total 200 2000 Balance 50 -2000 Weight 51.4 kg Vitals during initiation of dialysis: Temperature 401.5, heart rate of 89, blood pressure 150/83, respiratory rate of 15, blood flow rate of 350 mL/min, dialysate flow rate of 600 mL/min. Exam: General appearance: no acute distress, cooperative, well-developed, well- nourished Head exam: PRESENT: atraumatic, normocephalic Eye exam: PRESENT: Conjunctiva [place], EOMI, PERRLA. ABSENT: conjunctival injection, scleral icterus Mouth exam: PRESENT: moist, neck supple, tongue midline Neck exam: PRESENT: full ROM. ABSENT: carotid bruit, JVD, lymphadenopathy, thyromegaly Respiratory exam: PRESENT: Diminished to auscultation bilaterally. Positive minimal crackles and rhonchi ABSENT: Stridor, wheezes Cardiovascular exam: PRESENT: RRR, +S1, +S2. ABSENT: systolic murmur Pulses: PRESENT: normal radial pulses, normal dorsalis pedis pulses GI/Abdominal exam: PRESENT: normal bowel sounds, soft. ABSENT: guarding, mass, tenderness Rectal exam: deferred Extremities exam: PRESENT: full ROM. ABSENT: calf tenderness, pedal edema Musculoskeletal: PRESENT: full ROM. ABSENT: deformity Neurological exam: PRESENT: alert, Awake, Oriented to person, Oriented to place , Oriented to time, reflexes normal, CN II-XII grossly intact. ABSENT: motor sensory deficit Psychiatric exam: PRESENT: appropriate affect, normal mood. ABSENT: homicidal ideation, suicidal ideation Skin exam: PRESENT: intact, dry, warm. ABSENT: rash Results Laboratory Results: 11/21/17 10:05 11/21/17 10:05 11/21/17 11/21/17 11/21/17 10:05 10:05 10:05 WBC 3.9 L RBC 3.28 L Hgb 10.2 L Hct 29.6 L MCV 90 MCH 31.2 MCHC 34.6 RDW 15.2 H Plt Count 125 L Seg Neutrophils % 84.5 H Lymphocytes % 8.2 L Monocytes % 6.3 Eosinophils % 0.3 Basophils % 0.7 Absolute Neutrophils 3.3 Absolute Lymphocytes 0.3 L Absolute Monocytes 0.2 Absolute Eosinophils 0.0 Absolute Basophils 0.0 Sodium 136.0 L Potassium 4.8 Chloride 95 L Carbon Dioxide 25 Anion Gap 16 BUN 50 H Creatinine 12.30 H Est GFR ( Amer) 5 L Est GFR (Non-Af Amer) 4 L Glucose 90 Calcium 7.7 L Phosphorus 4.7 H Magnesium 1.9 Total Bilirubin 0.7 AST 41 ALT 27 Alkaline Phosphatase 54 Total Protein 6.0 L Albumin 3.2 L Impressions: Chest X-Ray 11/20/17 18:06 IMPRESSION: Small left pleural effusion. Abdomen Ultrasound 11/20/17 18:09 IMPRESSION: Chronic changes in the right kidney as described. No acute findings in the abdomen. Abdomen/Pelvis CT 11/20/17 20:35 IMPRESSION: 1. No acute inflammatory or obstructive process identified. This exam was performed according to our departmental dose-optimization program, which includes automated exposure control, adjustment of the mA and/or kV according to patient size and/or use of iterative reconstruction technique. Assessment & Plan - Diagnosis (1) End stage renal disease Is this a current diagnosis for this admission?: Yes Plan: We did dialysis today for 3 hours, using the patient's AV fistula, with 2 potassium bath, blood flow rate of 350 mL per minute, dialysate flow rate of 600 mL per minute, ultrafiltration 2 L as tolerated, no heparin and no Procrit given. Patient tolerated dialysis without any problems. He was monitored throughout the treatment. (2) Fever Qualifiers: Fever type: unspecified Qualified Code(s): R50.9 - Fever, unspecified Is this a current diagnosis for this admission?: Yes Plan: Exact etiology is unclear at this point. Patient is being given antibiotics per primary service. Follow-up blood cultures. Try to get urinalysis and urine culture if patient is able to give a specimen. Consider acute pyelonephritis in a patient with right flank pain. (3) Hypertension Is this a current diagnosis for this admission?: Yes (4) Anxiety Is this a current diagnosis for this admission?: Yes Plan: Patient usually gets anxiety during dialysis treatment so he is being given Ativan 1 mg prior to dialysis treatment 3 times a week. So in the hospital we can give the patient Ativan 1 mg prior to dialysis treatment as well. (5) Right flank pain Is this a current diagnosis for this admission?: Yes - Notes Notes: Thank you for this consultation. I will follow the patient with you. - Time Time Spent: 50 to 70 Minutes
[2017-11-21] MEDS ORDERED: VANCOMYCIN HCL 1,000 MG in DEXTROSE 5%-WATER 250 ML IV ONE (20:00)
[2017-11-21] MEDS: ALPRAZOLAM 0.5 MG TABLET PO SCH (21:50)
[2017-11-21] MEDS: TRAZODONE HCL 50 MG TABLET PO SCH (21:51)
[2017-11-21] MEDS: MEROPENEM 500 MG in NORMAL SALINE 50 ML IV SCH (21:53)
[2017-11-22] MEDS: IPRATROPIUM/ALBUTEROL 0.5-2.5 MG/3 ML AMPUL NEB SCH ×4 (01:54→19:56)
[2017-11-22 06:38] LABS: ABSOLUTE LYMPHOCYTES (AUTO) 0.2 10^3/uL (0.5-4.7); ABSOLUTE MONOCYTES (AUTO) 0.2 10^3/uL (0.1-1.4); ABSOLUTE NEUT (AUTO) 1.7 10^3/uL (1.7-8.2); BASOPHILS % (AUTO) 0.9 % (0-2); EOSINOPHILS % (AUTO) 0.8 % (0-6); HEMATOCRIT 25.7 % (37.9-51.0); HEMOGLOBIN 8.5 g/dL (13.5-17.0); LYMPHOCYTES % (AUTO) 11.3 % (13-45); MEAN CORPUSCULAR HEMOGLOBIN 30.5 pg (27.0-33.4); MEAN CORPUSCULAR HGB CONC 33.3 g/dL (32.0-36.0); MEAN CORPUSCULAR VOLUME 92 fl (80-97); PLATELET COUNT 100 10^3/uL (150-450); RED CELL DISTRIBUTION WIDTH 14.9 % (11.5-14.0); TOTAL CELLS COUNTED % (AUTO) 100 %
[2017-11-22 06:47] LABS: WHITE BLOOD COUNT 2.2 10^3/uL (4.0-10.5)
[2017-11-22 07:44] LABS: HEPATITIS A AB IGM Negative (Negative); HEPATITIS B CORE AB IGM Negative (Negative); HEPATITS B SURFACE ANTIGEN Negative (Negative)
[2017-11-22 09:14] LABS: HEPATITIS B CORE AB TOT Negative (Negative); HEPATITIS B SURFACE AB QUANT 7.6 mIU/mL (Immunity>9); HEPATITIS C VIRUS ANTIBODY <0.1 s/co ratio (0.0-0.9)
[2017-11-22] MEDS: SEVELAMER HCL 400 MG TABLET PO SCH ×3 (09:36→17:51)
[2017-11-22] MEDS: LACTOBACILLUS ACIDOPHILUS 250 MG TAB PO SCH ×2 (09:38→17:49)
[2017-11-22] MEDS: ALPRAZOLAM 0.5 MG TABLET PO SCH ×2 (09:39→22:01)
[2017-11-22] MEDS: DOCUSATE SODIUM 100 MG CAPSULE PO SCH ×2 (09:39→17:54)
--- NOTE | 2017-11-22 09:55 | RADIOLOGY REPORT (SQ) ---
EXAM DESCRIPTION: CHEST 2 VIEWS COMPLETED DATE/TIME: 11/22/2017 9:26 am REASON FOR STUDY: Fever COMPARISON: CT abdomen pelvis 11/20/2017 AP chest 11/20/2017 Two-view chest 06/20/2016 EXAM PARAMETERS: NUMBER OF VIEWS: two views TECHNIQUE: Digital Frontal and Lateral radiographic views of the chest acquired. RADIATION DOSE: NA LIMITATIONS: none FINDINGS: LUNGS AND PLEURA: Small right pleural effusion is present in the inferior half of major fi ssure and right posterior and lateral pleural space. No dense lung consolidation worrisome for pneumonia. No pneumothorax. No left pleural effusion MEDIASTINUM AND HILAR STRUCTURES: No masses or contour abnormalities. HEART AND VASCULAR STRUCTURES: Stable mild to moderate cardiomegaly BONES: No acute findings. HARDWARE: Clips left upper of arm for dialysis access OTHER: No other significant finding. IMPRESSION: Small right pleural effusion TECHNICAL DOCUMENTATION: JOB ID: [id number] [employer]- All Rights Reserved Reading location - IP/workstation name: [email or web address]
[2017-11-22] MEDS ORDERED: ACETAMINOPHEN 650 MG SUPP.RECT PR PRN (10:18)
[2017-11-22] MEDS ORDERED: ONDANSETRON HCL INJ/PF 4 MG/2 ML SDV IV PRN (10:30)
--- NOTE | 2017-11-22 16:29 | PDOC PROGRESS REPORT ---
Subjective Progress Note for:: 11/22/17 Subjective:: The patient is a 52-year-old male with end-stage renal disease on hemodialysis Wednesdays and Fridays. Past medical history includes coronary artery disease Gastroesophageal reflux disease He presented to the hospital on November 20 with intermittent right flank pain and fevers that started approximately 2 weeks ago. CAT scan of the abdomen and pelvis was within normal limits. He has been unable to provide a urine specimen yet due to minimal urine production. Chest x-ray did not show any infiltrate. No complaints at present Reason For Visit: FEVER ESRD Physical Exam Vital Signs: Temp Pulse Resp BP Pulse Ox 99.6 F 89 18 125/65 92 11/22/17 11:00 11/22/17 11:00 11/22/17 11:00 11/22/17 11:00 11/22/17 11:00 Intake & Output 11/21/17 11/22/17 11/23/17 06:59 06:59 06:59 Intake Total 250 400 Output Total 200 2000 Balance 50 -1600 Weight 51.4 kg 52.1 kg General appearance: PRESENT: no acute distress Mouth exam: PRESENT: moist Respiratory exam: PRESENT: symmetrical, unlabored Cardiovascular exam: PRESENT: RRR GI/Abdominal exam: PRESENT: normal bowel sounds, soft. ABSENT: tenderness Rectal exam: PRESENT: deferred Results Laboratory Results: 11/22/17 05:26 11/21/17 10:05 11/22/17 05:26 WBC 2.2 L D RBC 2.80 L Hgb 8.5 L Hct 25.7 L MCV 92 MCH 30.5 MCHC 33.3 RDW 14.9 H Plt Count 100 L Seg Neutrophils % 78.0 Lymphocytes % 11.3 L Monocytes % 9.0 Eosinophils % 0.8 Basophils % 0.9 Absolute Neutrophils 1.7 Absolute Lymphocytes 0.2 L Absolute Monocytes 0.2 Absolute Eosinophils 0.0 Absolute Basophils 0.0 Impressions: Abdomen Ultrasound 11/20/17 18:09 IMPRESSION: Chronic changes in the right kidney as described. No acute findings in the abdomen. Abdomen/Pelvis CT 11/20/17 20:35 IMPRESSION: 1. No acute inflammatory or obstructive process identified. This exam was performed according to our departmental dose-optimization program, which includes automated exposure control, adjustment of the mA and/or kV according to patient size and/or use of iterative reconstruction technique. Chest X-Ray 11/22/17 00:00 IMPRESSION: Small right pleural effusion Assessment & Plan - Diagnosis (1) Fever Qualifiers: Fever type: unspecified Qualified Code(s): R50.9 - Fever, unspecified Is this a current diagnosis for this admission?: Yes Plan: day 2 Vancomycin and Meropenem. Follow-up on blood cultures. Obtain urine sample for UA and culture. (2) End stage renal disease Is this a current diagnosis for this admission?: Yes Plan: Management per nephrology service. Continue sevelamer (3) Anxiety Is this a current diagnosis for this admission?: Yes Plan: Continue benzodiazepines. (4) Right flank pain, chronic Is this a current diagnosis for this admission?: Yes Plan: Appears to be musculoskeletal. Abdomen CAT scan within normal limits. Differential diagnosis includes possible infected renal cyst. - Time Time Spent with patient: 35 or more minutes
[2017-11-22] MEDS: HYDROCODONE/ACETAMINOPHEN 7.5-325 MG TABLET PO PRN (18:05)
[2017-11-22] MEDS: MEROPENEM 500 MG in NORMAL SALINE 50 ML IV SCH (22:06)
[2017-11-22] MEDS: TRAZODONE HCL 50 MG TABLET PO SCH (22:07)
[2017-11-23] MEDS: IPRATROPIUM/ALBUTEROL 0.5-2.5 MG/3 ML AMPUL NEB SCH ×4 (02:30→20:47)
[2017-11-23] MEDS: ACETAMINOPHEN 325 MG TABLET PO PRN (04:20)
[2017-11-23] MEDS ORDERED: NORMAL SALINE 1000 ML 1,000 ML IV PRN (05:00)
[2017-11-23] MEDS ORDERED: EPOETIN ALFA INJ 20000 UNIT/1 ML VIAL (RENAL) IV PRN (05:00)
[2017-11-23 05:56] LABS: ABSOLUTE LYMPHOCYTES (AUTO) 0.3 10^3/uL (0.5-4.7); ABSOLUTE MONOCYTES (AUTO) 0.2 10^3/uL (0.1-1.4); ABSOLUTE NEUT (AUTO) 2.6 10^3/uL (1.7-8.2); BASOPHILS % (AUTO) 0.8 % (0-2); EOSINOPHILS % (AUTO) 0.6 % (0-6); HEMOGLOBIN 8.9 g/dL (13.5-17.0); LYMPHOCYTES % (AUTO) 8.3 % (13-45); MEAN CORPUSCULAR HEMOGLOBIN 31.5 pg (27.0-33.4); MEAN CORPUSCULAR HGB CONC 34.3 g/dL (32.0-36.0); MEAN CORPUSCULAR VOLUME 92 fl (80-97); MONOCYTES % (AUTO) 7.1 % (3-13); PLATELET COUNT 108 10^3/uL (150-450); RED BLOOD COUNT 2.84 10^6/uL (4.35-5.55); RED CELL DISTRIBUTION WIDTH 14.8 % (11.5-14.0); SEGMENTED NEUTROPHILS % (AUTO) 83.2 % (42-78); TOTAL CELLS COUNTED % (AUTO) 100 %; WHITE BLOOD COUNT 3.1 10^3/uL (4.0-10.5)
[2017-11-23 06:10] LABS: ANION GAP 13 (5-19); BLOOD UREA NITROGEN 52 mg/dL (7-20); CALCIUM 8.1 mg/dL (8.4-10.2); CARBON DIOXIDE 27 mmol/L (22-30); CHLORIDE 98 mmol/L (98-107); GLUCOSE 98 mg/dL (75-110); POTASSIUM 4.8 mmol/L (3.6-5.0); SODIUM 138.2 mmol/L (137-145)
[2017-11-23] MEDS: LORAZEPAM 1 MG TABLET PO SCH (07:46)
[2017-11-23] MEDS: SEVELAMER HCL 400 MG TABLET PO SCH ×3 (07:46→18:05)
[2017-11-23] MEDS ORDERED: GLUCAGON,HUMAN RECOMB 1 MG INJ SUBCUT PRN (08:54)
[2017-11-23] MEDS ORDERED: DEXTROSE 50%-WATER 25 GM/50 ML DISP.SYRIN IV PRN ×2 (08:54)
[2017-11-23] MEDS ORDERED: DEXTROSE 40% GEL 15 GM TUBE PO PRN ×2 (08:54)
[2017-11-23] MEDS: ALPRAZOLAM 0.5 MG TABLET PO SCH ×2 (09:25→21:50)
[2017-11-23 09:53] LABS: INTERNATIONAL RATION (INR) 1.18; PROTHROMBIN TIME 15.6 SEC (11.4-15.4)
[2017-11-23] MEDS ORDERED: LORAZEPAM INJ 2 MG/1 ML VIAL IV PRN (12:14)
[2017-11-23] MEDS: DOCUSATE SODIUM 100 MG CAPSULE PO SCH ×2 (14:07→18:05)
[2017-11-23] MEDS: LACTOBACILLUS ACIDOPHILUS 250 MG TAB PO SCH ×2 (14:07→18:05)
--- NOTE | 2017-11-23 16:03 | RADIOLOGY REPORT (SQ) ---
EXAM DESCRIPTION: CT HEAD WITHOUT COMPLETED DATE/TIME: 11/23/2017 3:47 pm REASON FOR STUDY: Altered mentation COMPARISON: July 2012 TECHNIQUE: Axial images acquired through the brain without intravenous contrast. Images reviewed wi th bone, brain and subdural windows. Additional sagittal and coronal reconstructions were generated. Images stored on PACS. All CT scanners at this facility use dose modulation, iterative reconstruction, and/or weight based d osing when appropriate to reduce radiation dose to as low as reasonably achievable (ALARA). [facility]: Dose Right [facility]: CareDose [facility]: Dose Right [facility]: Teradose 4D [facility]: teextee RADIATION DOSE: CT Rad equipment meets quality standard of care and radiation dose reduction techniq ues were employed. CTDIvol: 48.6 mGy. DLP: 905 mGy-cm. mGy. LIMITATIONS: None. FINDINGS: VENTRICLES: Normal size and contour. CEREBRUM: No masses. No hemorrhage. No midline shift. No evidence for acute infarction. Normal gra y/white matter differentiation. No areas of low density in the white matter. CEREBELLUM: No masses. No hemorrhage. No alteration of density. No evidence for acute infarction. EXTRAAXIAL SPACES: No fluid collections. No masses. ORBITS AND GLOBE: No intra- or extraconal masses. Normal contour of globe without masses. CALVARIUM: No fracture. PARANASAL SINUSES: No fluid or mucosal thickening. SOFT TISSUES: No mass or hematoma. OTHER: No other significant finding. IMPRESSION: NORMAL BRAIN CT WITHOUT CONTRAST. EVIDENCE OF ACUTE STROKE: NO. COMMENT: Quality ID # [id number]: Final reports with documentation of one or more dose reduction techniques (e.g., Automated exposure control, adjustment of the mA and/or kV according to patient size, use of iterative reconstruction technique) TECHNICAL DOCUMENTATION: JOB ID: [id number] [email or web address]- All Rights Reserved Reading location - IP/workstation name: [email or web address]
--- NOTE | 2017-11-23 16:33 | PDOC PROGRESS REPORT ---
Subjective Progress Note for:: 11/23/17 Subjective:: The patient is a 52-year-old male with end-stage renal disease on hemodialysis Wednesdays and Fridays. Past medical history includes coronary artery disease Gastroesophageal reflux disease He presented to the hospital on November 20 with intermittent right flank pain and fevers that started approximately 2 weeks ago. CAT scan of the abdomen and pelvis was within normal limits. He has been unable to provide a urine specimen yet due to minimal urine production. Chest x-ray did not show any infiltrate. He continues to have high-grade fevers, cultures have been negative so far however he did get antibiotics as an outpatient. There is some concern for possible substance abuse, unknown if he uses injectable IV drugs. The patient has had episodes of delirium and agitation. He is a poor historian. I ordered an LP for CSF studies. MRI of the cervical thoracic and lumbar spine also ordered to rule out discitis or abscess. CT of the head done this morning did not show any acute abnormalities. Reason For Visit: FEVER ESRD Physical Exam Vital Signs: Temp Pulse Resp BP Pulse Ox 99.6 F 85 22 H 155/68 H 96 11/23/17 05:20 11/23/17 14:00 11/23/17 14:00 11/23/17 04:18 11/23/17 14:00 Intake & Output 11/22/17 11/23/17 11/24/17 06:59 06:59 06:59 Intake Total 400 910 Output Total 2000 0 3000 Balance -1600 910 -3000 Weight 52.1 kg 46.9 kg General appearance: PRESENT: disheveled, mild distress, thin Head exam: PRESENT: normocephalic Eye exam: PRESENT: PERRLA. ABSENT: periorbital swelling Mouth exam: PRESENT: moist Neck exam: ABSENT: tracheal deviation Respiratory exam: PRESENT: symmetrical, unlabored. ABSENT: crackles Cardiovascular exam: PRESENT: RRR GI/Abdominal exam: PRESENT: normal bowel sounds, soft Rectal exam: PRESENT: deferred Musculoskeletal exam: PRESENT: other - L arm AV fistula Results Laboratory Results: 11/23/17 05:36 11/23/17 05:36 11/23/17 11/23/17 05:36 05:36 WBC 3.1 L RBC 2.84 L Hgb 8.9 L Hct 26.0 L MCV 92 MCH 31.5 MCHC 34.3 RDW 14.8 H Plt Count 108 L Seg Neutrophils % 83.2 H Lymphocytes % 8.3 L Monocytes % 7.1 Eosinophils % 0.6 Basophils % 0.8 Absolute Neutrophils 2.6 Absolute Lymphocytes 0.3 L Absolute Monocytes 0.2 Absolute Eosinophils 0.0 Absolute Basophils 0.0 Sodium 138.2 Potassium 4.8 Chloride 98 Carbon Dioxide 27 Anion Gap 13 BUN 52 H Creatinine 11.01 H Est GFR ( Amer) 6 L Est GFR (Non-Af Amer) 5 L Glucose 98 Calcium 8.1 L 11/22/17 16:54 Sputum Gram Stain - Final 11/22/17 16:54 Sputum Sputum Culture - Final Impressions: Abdomen Ultrasound 11/20/17 18:09 IMPRESSION: Chronic changes in the right kidney as described. No acute findings in the abdomen. Abdomen/Pelvis CT 11/20/17 20:35 IMPRESSION: 1. No acute inflammatory or obstructive process identified. This exam was performed according to our departmental dose-optimization program, which includes automated exposure control, adjustment of the mA and/or kV according to patient size and/or use of iterative reconstruction technique. Chest X-Ray 11/22/17 00:00 IMPRESSION: Small right pleural effusion Head CT 11/23/17 00:00 IMPRESSION: NORMAL BRAIN CT WITHOUT CONTRAST. EVIDENCE OF ACUTE STROKE: NO. Assessment & Plan - Diagnosis (1) Fever Qualifiers: Fever type: unspecified Qualified Code(s): R50.9 - Fever, unspecified Is this a current diagnosis for this admission?: Yes Plan: Day 3 Vancomycin and Meropenem. Follow-up on blood cultures. Straight cath attempted to obtain urine sample for UA and culture- no urine. (2) End stage renal disease Is this a current diagnosis for this admission?: Yes Plan: Management per nephrology service. Continue sevelamer (3) Anxiety Is this a current diagnosis for this admission?: Yes Plan: Continue benzodiazepines. (4) Right flank pain, chronic Is this a current diagnosis for this admission?: Yes Plan: Appears to be musculoskeletal. Abdomen CAT scan within normal limits. Differential diagnosis includes possible infected renal cyst. MRI spine pending - Time Time Spent with patient: 35 or more minutes
--- NOTE | 2017-11-23 16:39 | RADIOLOGY REPORT (SQ) ---
EXAM DESCRIPTION: MRI CERVICAL SPINE WITHOUT COMPLETED DATE/TIME: 11/23/2017 4:28 pm REASON FOR STUDY: Fever of unknown source, back pain COMPARISON: None. TECHNIQUE: Sagittal imaging includes T1, T2, STIR and gradient echo sequences. LIMITATIONS: Motion artifact is seen on a couple of the sequences. FINDINGS: ALIGNMENT: Normal. VERTEBRAE: Intact. BONE MARROW: Normal. No marrow replacement or reactive changes. DISCS: Normal. No significant abnormal signal or loss of height. HARDWARE: None in the spine. CORD AND BASE OF BRAIN: Normal in size and signal intensity. SOFT TISSUES: No soft tissue masses. Cervical: No impingement on the thecal sac or spinal cord is seen. No epidural masses or fluid rocío ections are identified. UPPER THORACIC: No impingement on the thecal sac or spinal cord is seen. No epidural masses or fluid collections are identified. OTHER: No other significant finding. IMPRESSION: No significant findings. No epidural masses or fluid collections are identified. TECHNICAL DOCUMENTATION: JOB ID: [id number] [employer]- All Rights Reserved Reading location - IP/workstation name: [email or web address]
--- NOTE | 2017-11-23 16:45 | RADIOLOGY REPORT (SQ) ---
EXAM DESCRIPTION: MRI LUMBAR SPINE WITHOUT COMPLETED DATE/TIME: 11/23/2017 4:27 pm REASON FOR STUDY: Fever of unknown source, back pain COMPARISON: None. TECHNIQUE: Sagittal and Axial imaging includes T1, T2, STIR and gradient echo sequences. Coronal T2/ HASTE imaging. LIMITATIONS: None. FINDINGS: VISUALIZED UPPER ABDOMEN: Limited evaluation. No acute or suspicious findings suggested. SEGMENTATION: No transitional anatomy. The lowest well-developed disc space is labeled L5-S1. ALIGNMENT: Anatomic. VERTEBRAE: Intact. BONE MARROW: Normal. No marrow replacement or reactive changes. DISC SIGNAL: There is some mild loss of the normal signal intensity at multiple levels consistent wit h a mild degree of disc degeneration. POSTERIOR ELEMENTS: Generally intact. No pars defect evident. HARDWARE: None in the spine. CORD AND CONUS: Normal in size and signal intensity. Conus at the appropriate level. SOFT TISSUES: No aortic aneurysm seen. No bulky retroperitoneal adenopathy or mass. No paraspinal mas s or fluid. Lumbar: There is mi multilevel disc bulging with impingement on the anterior thecal sac. No other i mpingement on the thecal sac is seen. No epidural masses or fluid collections are identified. LOWER THORACIC: No significant impingement on the thecal sac or spinal cord is seen. No epidural mas ses or fluid collections are identified. SACRUM: Visualized upper sacrum intact. OTHER: No other significant findings. IMPRESSION: No epidural masses or fluid collections are identified. Mild degenerative changes as no chandu above. Other findings as noted above. TECHNICAL DOCUMENTATION: JOB ID: [id number] [employer]- All Rights Reserved Reading location - IP/workstation name: [facility]
--- NOTE | 2017-11-23 17:10 | PDOC PROGRESS REPORT ---
Subjective Progress Note for:: 11/23/17 Subjective:: I saw the patient during initiation of hemodialysis this morning around 8:20 AM. Patient was noted to be lethargic although he is arousable and answers. Minimal few questions but he appears very drowsy and goes right back to sleep. There was a report by the floor nurse the patient has expressed some suicidal ideation so he is on suicide watch. He denies any shortness of breathing although initially there was a difficulty with the pulse ox machine to get his oxygen saturation but eventually his oxygen saturation was found to be 100% on oxygen at 4 5 L so this needed to be decreased. Although the patient seems to be comfortable he does appear to be unwell and not his usual self. He gets his startled easily with complaints. He underwent hemodialysis this morning without any difficulties or problems. Reason For Visit: FEVER ESRD Physical Exam Vital Signs: Temp Pulse Resp BP Pulse Ox 99.6 F 85 22 H 155/68 H 96 11/23/17 05:20 11/23/17 14:00 11/23/17 14:00 11/23/17 04:18 11/23/17 14:00 Intake & Output 11/22/17 11/23/17 11/24/17 06:59 06:59 06:59 Intake Total 400 910 Output Total 2000 0 3000 Balance -1600 910 -3000 Weight 52.1 kg 46.9 kg Vitals during initiation of dialysis: Blood pressure 160/94, heart rate of 84, blood flow rate of 400 mL/min, dialysate flow rate of 600 mL/min, oxygen saturation 100% with oxygen at 4 L by nasal cannula. Exam: General appearance: PRESENT: no acute distress, lethargic and answers very minimal questions and goes right back to sleep Head exam: PRESENT: atraumatic, normocephalic Eye exam: PRESENT: conjunctiva pale, PERRLA. ABSENT: scleral icterus Neck exam: ABSENT: JVD Respiratory exam: PRESENT: Diminished breath sounds. Positive rhonchi ABSENT: Crackles, unlabored, wheezes Cardiovascular exam: PRESENT: Regular rate rhythm -+S1, +S2. ABSENT: diastolic murmur, systolic murmur GI/Abdominal exam: PRESENT: normal bowel sounds, soft. ABSENT: guarding, mass, tenderness Extremities exam: ABSENT: No edema Neurological exam: PRESENT: Lethargic as above. Skin exam: PRESENT: dry, warm, Results Laboratory Results: 11/23/17 05:36 11/23/17 05:36 11/23/17 11/23/17 05:36 05:36 WBC 3.1 L RBC 2.84 L Hgb 8.9 L Hct 26.0 L MCV 92 MCH 31.5 MCHC 34.3 RDW 14.8 H Plt Count 108 L Seg Neutrophils % 83.2 H Lymphocytes % 8.3 L Monocytes % 7.1 Eosinophils % 0.6 Basophils % 0.8 Absolute Neutrophils 2.6 Absolute Lymphocytes 0.3 L Absolute Monocytes 0.2 Absolute Eosinophils 0.0 Absolute Basophils 0.0 Sodium 138.2 Potassium 4.8 Chloride 98 Carbon Dioxide 27 Anion Gap 13 BUN 52 H Creatinine 11.01 H Est GFR ( Amer) 6 L Est GFR (Non-Af Amer) 5 L Glucose 98 Calcium 8.1 L 11/22/17 16:54 Sputum Gram Stain - Final 11/22/17 16:54 Sputum Sputum Culture - Final Impressions: Abdomen Ultrasound 11/20/17 18:09 IMPRESSION: Chronic changes in the right kidney as described. No acute findings in the abdomen. Abdomen/Pelvis CT 11/20/17 20:35 IMPRESSION: 1. No acute inflammatory or obstructive process identified. This exam was performed according to our departmental dose-optimization program, which includes automated exposure control, adjustment of the mA and/or kV according to patient size and/or use of iterative reconstruction technique. Chest X-Ray 11/22/17 00:00 IMPRESSION: Small right pleural effusion Cervical Spine MRI 11/23/17 00:00 IMPRESSION: No significant findings. No epidural masses or fluid collections are identified. Head CT 11/23/17 00:00 IMPRESSION: NORMAL BRAIN CT WITHOUT CONTRAST. EVIDENCE OF ACUTE STROKE: NO. Lumbar Spine MRI 11/23/17 00:00 IMPRESSION: No epidural masses or fluid collections are identified. Mild degenerative changes as noted above. Other findings as noted above. Assessment & Plan - Diagnosis (1) End stage renal disease Is this a current diagnosis for this admission?: Yes Plan: We did dialysis today for 3 hours, using the patient's AV fistula, with 2 potassium bath, blood flow rate of 400 mL per minute, dialysate flow rate of 6 and mL per minute, ultrafiltration 3 L as tolerated, no heparin and Procrit with 20,000 units during dialysis intravenously. Patient's dialysis treatment was uneventful and patient tolerated treatment well without any complications. Patient was monitored throughout the treatment by our dialysis nurse. (2) Anemia in chronic kidney disease (CKD) Is this a current diagnosis for this admission?: Yes Plan: Procrit given during dialysis treatment intravenously. (3) Fever Qualifiers: Fever type: unspecified Qualified Code(s): R50.9 - Fever, unspecified Is this a current diagnosis for this admission?: Yes Plan: Exact etiology of the fever is still unknown at this time. Urine specimen was not obtained successfully even with a straight cath. I discussed the case with Dr. Galindo this morning and she indicated that she plans to do an LP to rule out possibility of any acute meningitis or encephalitis given the patient's continued fever and poor clinical condition. I agree with the plan. CT scan of the head was unremarkable. MRI of the spine also did not show any epidural mass or other significant findings except for mild degenerative changes. Continue IV antibiotics as being given. Other considerations if the fever is not of infectious etiology would be a possible withdrawal symptoms from street drugs. Patient is known to be using marijuana but we are not aware of any IV drug use including use of other drugs. (4) Hypertension Is this a current diagnosis for this admission?: Yes (5) Anxiety Is this a current diagnosis for this admission?: Yes (6) Right flank pain Is this a current diagnosis for this admission?: Yes (7) History of marijuana use Is this a current diagnosis for this admission?: Yes - Time Time with patient: 15-25 minutes
[2017-11-23 17:44] LABS: APPEARANCE ALL TUBES CLEAR; COLOR ALL TUBES COLORLESS; CSF TUBE NUMBER 3
[2017-11-23 17:45] LABS: RED BLOOD CELL,CSF 0 /uL (0-10); WHITE BLOOD CELL,CSF 2 /uL (0-5)
[2017-11-23 17:49] LABS: GLUCOSE,CSF 44 mg/dL (40-70); PROTEIN,CSF 55 mg/dL (12-60)
[2017-11-23] MEDS ORDERED: VANCOMYCIN HCL 750 MG in DEXTROSE 5%-WATER 250 ML IV SCH (18:00)
[2017-11-23 18:21] LABS: ALANINE AMINOTRANSFERASE 21 U/L (21-72); ALBUMIN 2.8 g/dL (3.5-5.0); ALKALINE PHOSPHATASE 62 U/L (38-126); ASPARTATE AMINO TRANSFERASE 32 U/L (17-59); BILIRUBIN,DIRECT 0.5 mg/dL (0.0-0.4); BILIRUBIN,TOTAL 0.5 mg/dL (0.2-1.3); TOTAL PROTEIN 5.8 g/dL (6.3-8.2)
[2017-11-23 18:32] LABS: H. INFLUENZAE TYPE B AG NEGATIVE (NEGATIVE); S. PNEUMONIAE AG NEGATIVE (NEGATIVE); STREP. GROUP B AG NEGATIVE (NEGATIVE)
--- NOTE | 2017-11-23 18:39 | Progress Note ---
Provider Note Provider Note: ID Consult Note Asked to review patient's chart by Dr Maher and discussed case via telephone. Pt not seen or examined. Mr. Harman is a 52 year old man with PMH including oliguric ESRD due to hypertensive nephrosclerosis on HD MWF via AF fistula, nonischemic dilated cardiomyopathy, GA, GERD, hx of alcoholism, anxiety, chronic hearing loss. He was admitted on 11/21/17 with fever. He is a poor historian but has been reportedly having fevers intermittently for the past 2-3 weeks with BCx drawn at dialysis that did not grow anything and for which he had been receiving vancomycin and cefepime. Associated symptoms were occasional nausea, vomiting and diarrhea and cough with greenish sputum. Pt also had complaints of R flank pain. Pt had fever on day of admission 101.5 F, which has recurred up to 103 F on 11/21 , 101.8 on 11/22, and 103.1 F on 11/23. His initial exam disclosed R flank tenderness to percussion but otherwise no suggestive findings, including no rash, no murmurs, no abdominal tenderness, no adventitious lung sounds. Labs notable for mild leukopenia, initial WBC count 4.1 now 3.1. No eosinophilia. Anemia with normal MCV. Mild thrombocytopenia, plts 152k initially but now 108k. no hyponatremia, AST mildly elevated initially around ~60 now normal, ALT normal , normal AlkPhos, slight elevation in direct bili, BUN/creatinine as expected for ESRD. Hepatitis serologies negative for acute infection. ESR 68. CPK elevated in the 400s. imaging: CXR on 11/20 was read as showing small L pleural effusion. CT scan of abd/pelvis on 11/20 with PO contrast but w/o IV contrast showed clear lung bases; no free intraperitoneal fluid or LAD, no acute inflammatory or obstructive process. abdominal Us: no acute findings, multiple thin walled small R renal cysts CT head w/o contrast performed for agitation and delirium that developed on 11/23 showed no acute change. MRI cervical and lumbar spine on 11/23 for back pain showed no evidence of discitis, osteomyelitis or abscess. cultures: sputum culture rejected d/t poor specimen quality BCx 1 set: negative x 48h BCx, 2 sets: negative x 24h UCx: not performed. Straight cath unsuccessful due to little/no urine output. He has been on vancomycin and meropenem as an inpatient empirically. Impression/Recommendations Fever of unknown origin - This is a very challenging case. The differential diagnosis is very broad, the patient having received antibiotics prior to admission also decreases usefulness of blood cultures obtained as an inpatient, and the patient's agitation/delirium and deafness limit history. - LP is planned given fever and encephalopathy. - Consider sending Quantiferon and HIV test. - Consider CT scan of the chest for better evaluation of the lungs since the only symptoms prior to admission consisted of productive cough and nonspecific NVD - MARK and RF can be sent as screening tests for noninfectious connective tissue disorders. - Tick borne illness such as RMSF or Ehrlichiosis can always be considered in the summer in [place] if the patient has had tick exposure or significant time outdoors (e.g. gardening or walking in wooded areas, clearing brush or grasses) if fever, thrombocytopenia, elevated transaminases. If so, empiric doxycycline should be added pending RMSF serology and Ehrlichia PCR and serology. Recommend repeat LFTs, but I am not very suspicious of tick borne illness on basis of duration of fever/chills - would typically be more acute, not ongoing x 2-3 weeks. - Pyelonephritis with infected renal cyst has been raised as a concern in this patient, but the lack of response to broad spectrum antimicrobial therapy thus far (cefepime/vancomycin as outpatient, vancomycin/meropenem as inpatient) is concerning that this may not be the underlying problem in absence of large cyst size that might limit antibiotic penetration or extremely drug resistant organism - If pt has evidence on exam to suggest DVT or limited mobility, consider duplex ultrasound of extremities to confirm. - Alcohol withdrawal is a consideration if the patient has been heavily drinking ; he has PMH including alcoholism, but I do not know if this is remote or recent - Drug fever (including to antibiotics) is also a consideration although generally one of exclusion, and until infectious cause is less likely, continuing broad spectrum antimicrobial empiric therapy is reasonable, while minimizing any unnecessary medications. If no source is found, discontinuing antibiotics may need to be considered. - Continue to carefully evaluate patient for signs and symptoms to guide further workup. Needless to say, there are limitations to review remotely, and transfer to a facility with inpatient Infectious Diseases consultation could be considered if no etiology is apparent with the above. Oniel Ward MD [facility] pager [phone]
[2017-11-23] MEDS ORDERED: DOXYCYCLINE HYCLATE 100 MG TABLET PO ONE (19:00)
[2017-11-23] MEDS: TRAZODONE HCL 50 MG TABLET PO SCH (21:49)
[2017-11-23] MEDS: MEROPENEM 500 MG in NORMAL SALINE 50 ML IV SCH (21:52)
[2017-11-24] MEDS: IPRATROPIUM/ALBUTEROL 0.5-2.5 MG/3 ML AMPUL NEB SCH ×2 (02:40→08:33)
[2017-11-24 06:40] LABS: ABSOLUTE LYMPHOCYTES (AUTO) 0.3 10^3/uL (0.5-4.7); ABSOLUTE MONOCYTES (AUTO) 0.3 10^3/uL (0.1-1.4); ABSOLUTE NEUT (AUTO) 2.3 10^3/uL (1.7-8.2); BASOPHILS % (AUTO) 0.6 % (0-2); EOSINOPHILS % (AUTO) 0.4 % (0-6); HEMOGLOBIN 9.9 g/dL (13.5-17.0); LYMPHOCYTES % (AUTO) 10.4 % (13-45); MEAN CORPUSCULAR VOLUME 91 fl (80-97); MONOCYTES % (AUTO) 10.2 % (3-13); RED BLOOD COUNT 3.19 10^6/uL (4.35-5.55); RED CELL DISTRIBUTION WIDTH 15.1 % (11.5-14.0); SEGMENTED NEUTROPHILS % (AUTO) 78.4 % (42-78); TOTAL CELLS COUNTED % (AUTO) 100 %
[2017-11-24 06:53] LABS: ALANINE AMINOTRANSFERASE 20 U/L (21-72); ALBUMIN 3.1 g/dL (3.5-5.0); ALKALINE PHOSPHATASE 64 U/L (38-126); ASPARTATE AMINO TRANSFERASE 32 U/L (17-59); BILIRUBIN,DIRECT 0.7 mg/dL (0.0-0.4); BILIRUBIN,TOTAL 0.8 mg/dL (0.2-1.3); TOTAL PROTEIN 5.9 g/dL (6.3-8.2)
[2017-11-24 07:22] LABS: PLATELET COUNT 92 10^3/uL (150-450)
[2017-11-24] MEDS: SEVELAMER HCL 400 MG TABLET PO SCH ×3 (07:55→17:24)
--- NOTE | 2017-11-24 09:26 | PROGRESS NOTE E ---
Progress Note NAME: NEEL GONZALES : 1965 AGE: 52Y DATE: 11/24/2017 ROOM: 329 SUBJECTIVE: The patient is lying in bed. The patient is confrontational and argumentative, citing that absolutely nothing has been done for him since he has been in the hospital; however, in the same sentence, he states that he has had so many needlesticks for lab draws that it was unbearable. I did challenge the patient on this point; however, once I realized it was not receptive, I chose not to further challenge him. The patient describes himself as feeling poorly; however, according to previous documentation, the patient being awake and alert is much improved in comparison to where he has been. The patient has apparently been obtunded for a number of days. The patient is awake at this time and agitated, threatening to leave against medical advice. The patient appears to be alert and oriented to person, place, time, and situation and would like to go back to [facility], and does not voice any other concerns at this time. REVIEW OF SYSTEMS: The rest of the review of systems is negative. MEDICATION: Reviewed. OBJECTIVE: GENERAL: The patient is a 52-year-old male who is awake and alert. He is oriented to person, place, time, and situation. He is verbal. Does not appear to be distressed. VITAL SIGNS: Temperature 99.1, pulse 91, respirations 18, blood pressure 131/74, oxygen saturation 100% on room air. SKIN: Warm and dry. No rashes. Not diaphoretic. HEENT: Pupils equal, round, reactive to light and accommodation. NECK: Supple. No JVD CVS: Heart is regular without murmur or rub. CHEST: Clear, symmetrical, unlabored. ABDOMEN: Soft, nontender, nondistended. BACK: No CVA tenderness or sacral edema. EXTREMITIES: No clubbing, cyanosis, or edema. PSYCHIATRIC: The patient is quite agitated. No suicidal or homicidal ideation. DIAGNOSTICS/LAB VALUES: Hematology on 11/24/2017: WBC 3.0, hemoglobin 9.9, hematocrit 29.0, platelet count 92,000. Chemistry obtained on 11/23/2017: Sodium 138, potassium 4.2, chloride 98, carbon dioxide 27, BUN 52, creatinine 11.01, glucose 98, calcium 8.1, bilirubin 0.5, AST 32, ALT 21, alkaline phosphatase 62, total protein 5.8, albumin 2.8. Cerebrospinal fluid obtained on 11/23/2017: Appearance is clear, colorless, with WBCs of 2, RBCs 0, 44, protein 55. Culture thus far reveals no growth. ASSESSMENT AND PLAN: 1. FEVER OF UNKNOWN ORIGIN. The patient is currently being covered with meropenem and doxycycline at the recommendation of Infectious Disease. Cultures thus far have been negative. Nothing significant on LP. The patient, though, has been unable to produce any urine for culture, given his end-stage renal disease. Also uncertain of the patient's street drug use. Will follow. 2. ACUTE ENCEPHALOPATHY secondary to #1. The patient appears to be back at his baseline now. 3. END-STAGE RENAL DISEASE. Management is per Nephrology. 4. GENERAL ANXIETY DISORDER. Continue as needed benzodiazepines. 5. CHRONIC RIGHT FLANK PAIN. Appears to be musculoskeletal. All imaging to this area has been completely unremarkable. 6. SECONDARY HYPOPARATHYROIDISM. Management is per Nephrology. 7. PANCYTOPENIA. Overall relatively mild, possibly due to viral process. DISPOSITION: The patient is a full code. Depending on the patient's symptomatology and diagnostic findings, will reevaluate in the a.m. Time spent including assessment, plan, physical examination, patient education, review of records, is 25 minutes. DICTATING PHYSICIAN: LEON GALLO NP [id number] PHY#: [id number] ID: [id number] JOB#: [id number] ACCT: [id number] cc: > [facility]
[2017-11-24] MEDS: DOCUSATE SODIUM 100 MG CAPSULE PO SCH ×2 (09:29→17:24)
[2017-11-24] MEDS: DOXYCYCLINE HYCLATE 100 MG TABLET PO SCH ×2 (09:30→22:25)
[2017-11-24] MEDS: ALPRAZOLAM 0.5 MG TABLET PO SCH ×2 (09:30→22:25)
[2017-11-24] MEDS: LACTOBACILLUS ACIDOPHILUS 250 MG TAB PO SCH ×2 (09:30→17:24)
[2017-11-24] MEDS: HYDROCODONE/ACETAMINOPHEN 7.5-325 MG TABLET PO PRN ×2 (14:10→23:20)
[2017-11-24] MEDS: MEROPENEM 500 MG in NORMAL SALINE 50 ML IV SCH (22:21)
[2017-11-24] MEDS: TRAZODONE HCL 50 MG TABLET PO SCH (22:25)
[2017-11-24] MEDS: ACETAMINOPHEN 325 MG TABLET PO PRN (23:19)
[2017-11-25] MEDS: HYDROCODONE/ACETAMINOPHEN 7.5-325 MG TABLET PO PRN (08:24)
[2017-11-25] MEDS: SEVELAMER HCL 400 MG TABLET PO SCH ×3 (08:25→17:44)
[2017-11-25] MEDS: LACTOBACILLUS ACIDOPHILUS 250 MG TAB PO SCH ×2 (09:34→17:43)
[2017-11-25] MEDS: DOCUSATE SODIUM 100 MG CAPSULE PO SCH ×2 (09:35→17:43)
[2017-11-25] MEDS: DOXYCYCLINE HYCLATE 100 MG TABLET PO SCH ×2 (09:35→22:29)
[2017-11-25] MEDS: ALPRAZOLAM 0.5 MG TABLET PO SCH ×2 (09:35→22:29)
--- NOTE | 2017-11-25 11:28 | RADIOLOGY REPORT (SQ) ---
EXAM DESCRIPTION: LUMBAR PUNCTURE; FLUORO/NEEDLE PLACEMENT/SPINE COMPLETED DATE/TIME: 11/23/2017 5:03 pm REASON FOR STUDY: High grade fevers, cause unknown; HIGH GRADE FEVERS, CAUSE UNKNOWN COMPARISON: None. FLUOROSCOPY TIME: 33 seconds 1 images saved to PACS. TECHNIQUE: Fluoroscopic guided lumbar puncture. LIMITATIONS: None. PROCEDURE: After written consent and assessment were obtained, the patient was brought into the fluo roscopy room and placed prone on the table. The patient's lower back was prepped in a sterile fashio n and an entry site was selected under live fluoroscopic guidance. The entry site was anesthetized wi th 1% lidocaine. A 22 gauge needle was advanced through the skin and into the thecal sac at the level of L3-L4. Opening pressure 18 mm hg. After approximately 8 ml was drained, the needle was removed and a sterile bandage was placed of the site. Specimens were sent to the lab for testing. A fluoros copic spot image was saved to PACS confirming level access. FINDINGS: Clear CSF IMPRESSION: Lumbar puncture under fluoroscopy. No immediate complication. COMMENT: Patient medication list reviewed: Yes- Quality ID# [id number]:Eligible professional attests to doc umenting in the medical record they obtained, updated, or reviewed the patient's current medications. . Quality ID 145: Final reports for procedures using fluoroscopy that document radiation exposure dex isabelle, or exposure time and number of fluorographic images (if radiation exposure indices are not avail able) TECHNICAL DOCUMENTATION: JOB ID: [id number] [employer]- All Rights Reserved Reading location - IP/workstation name: [email or web address]
--- NOTE | 2017-11-25 13:30 | PDOC PROGRESS REPORT ---
Subjective Progress Note for:: 11/25/17 Subjective:: The patient is awake, but lethargic. He is complaining of limb and back pain. These are chronic. Reason For Visit: FEVER ESRD Physical Exam Vital Signs: Temp Pulse Resp BP Pulse Ox 98.6 F 78 18 106/66 98 11/25/17 11:29 11/25/17 11:29 11/25/17 11:29 11/25/17 11:29 11/25/17 11:29 Intake & Output 11/24/17 11/25/17 11/26/17 06:59 06:59 06:59 Intake Total 350 960 355 Output Total 3000 0 0 Balance -2650 960 355 Weight 44.1 kg 45.8 kg General appearance: PRESENT: no acute distress, cooperative, other - cachectic Respiratory exam: PRESENT: other - No increased work of breathing.. ABSENT: rales, rhonchi, wheezes Cardiovascular exam: PRESENT: RRR. ABSENT: gallop, rubs, systolic murmur Pulses: PRESENT: other - Diminished distal pulses. GI/Abdominal exam: PRESENT: other - scaffoid. ABSENT: hernia, mass, normal bowel sounds, organolmegaly, soft Musculoskeletal exam: PRESENT: other - Pt complains of pain with palpation of his distal right lower extremity. He states that this is chronic. Neurological exam: PRESENT: awake, oriented to person, oriented to place, oriented to situation, CN II-XII grossly intact, other - lethargic. ABSENT: oriented to time, motor sensory deficit Skin exam: PRESENT: dry, intact, warm Results Laboratory Results: 11/24/17 06:25 11/23/17 05:36 11/23/17 16:50 Cerebral Spinal Fluid - Csf Gram Stain - Final Impressions: Abdomen Ultrasound 11/20/17 18:09 IMPRESSION: Chronic changes in the right kidney as described. No acute findings in the abdomen. Abdomen/Pelvis CT 11/20/17 20:35 IMPRESSION: 1. No acute inflammatory or obstructive process identified. This exam was performed according to our departmental dose-optimization program, which includes automated exposure control, adjustment of the mA and/or kV according to patient size and/or use of iterative reconstruction technique. Chest X-Ray 11/22/17 00:00 IMPRESSION: Small right pleural effusion Cervical Spine MRI 11/23/17 00:00 IMPRESSION: No significant findings. No epidural masses or fluid collections are identified. Guidance Fluoroscopy 11/23/17 00:00 IMPRESSION: Lumbar puncture under fluoroscopy. No immediate complication. Head CT 11/23/17 00:00 IMPRESSION: NORMAL BRAIN CT WITHOUT CONTRAST. EVIDENCE OF ACUTE STROKE: NO. Lumbar Puncture 11/23/17 00:00 IMPRESSION: Lumbar puncture under fluoroscopy. No immediate complication. Lumbar Spine MRI 11/23/17 00:00 IMPRESSION: No epidural masses or fluid collections are identified. Mild degenerative changes as noted above. Other findings as noted above. Assessment & Plan - Diagnosis (1) Anemia in chronic kidney disease (CKD) Qualifiers: Chronic kidney disease stage: on chronic dialysis Qualified Code(s): N18.6 - End stage renal disease; D63.1 - Anemia in chronic kidney disease; D63.1 - Anemia in chronic kidney disease; Z99.2 - Dependence on renal dialysis; Z99.2 - Dependence on renal dialysis; Z99.2 - Dependence on renal dialysis; Z99.2 - Dependence on renal dialysis Is this a current diagnosis for this admission?: Yes Plan: I appreciate nephrology's assistance. Continue HD as per nephrology. (2) Chronic renal failure Qualifiers: Chronic kidney disease stage: stage 5 Qualified Code(s): N18.5 - Chronic kidney disease, stage 5 Is this a current diagnosis for this admission?: Yes Plan: I appreciate nephrology's assistance. Continue HD as per nephrology. (3) History of marijuana use Is this a current diagnosis for this admission?: Yes (4) Right flank pain Is this a current diagnosis for this admission?: Yes Plan: No renal cysts or evidence for pyelonephritis on CT. The patient is not complaining of right flank pain at this time. No CVA tenderness. (5) End stage renal disease Is this a current diagnosis for this admission?: Yes (6) Hyperkalemia Is this a current diagnosis for this admission?: Yes Plan: Resolved with HD. (7) Fever Qualifiers: Fever type: unspecified Qualified Code(s): R50.9 - Fever, unspecified Is this a current diagnosis for this admission?: Yes Plan: Fever of unknown origin. No growth from blood, CSF cultures. CT abdomen and pelvis unremarkable for source of fevers. CT chest is pending. - Time Time Spent with patient: 25-34 minutes Medications reviewed and adjusted accordingly: Yes Anticipated discharge: Home
--- NOTE | 2017-11-25 15:57 | RADIOLOGY REPORT (SQ) ---
EXAM DESCRIPTION: CT CHEST WITH COMPLETED DATE/TIME: 11/25/2017 3:42 pm REASON FOR STUDY: fever of unknown origin COMPARISON: 10/28/2014 TECHNIQUE: CT scan of the chest performed using helical scanning technique with dynamic intravenous contrast injection. Images reviewed with lung, soft tissue and bone windows. Reconstructed coronal and sagittal MPR images reviewed. All images stored on PACS. All CT scanners at this facility use dose modulation, iterative reconstruction, and/or weight based d osing when appropriate to reduce radiation dose to as low as reasonably achievable (ALARA). [facility]: Dose Right [facility]: CareDose [facility]: Dose Right [facility]: Teradose 4D [facility]: Confide CONTRAST TYPE AND DOSE: 80 mL Isovue 370- low osmolar. RENAL FUNCTION: BUN 52 creatinine 11, dialysis patient. RADIATION DOSE: CT Rad equipment meets quality standard of care and radiation dose reduction techniq ues were employed. CTDIvol: 5.8 mGy. DLP: 207 mGy-cm. . LIMITATIONS: None. FINDINGS: LUNGS AND PLEURA: Small bilateral pleural effusions. Small bilateral lower lobe basilar s egmental atelectasis - airspace disease. No pneumothorax. Similar apical scarring. HILAR AND MEDIASTINAL STRUCTURES: No identified masses or abnormal nodes. HEART AND VASCULAR STRUCTURES: No aneurysm or dissection. No central pulmonary emboli. No pericardi al effusion. HARDWARE: None in the chest. UPPER ABDOMEN: No significant findings. Limited exam. THYROID AND OTHER SOFT TISSUES: No masses. No adenopathy. BONES: No significant finding. OTHER: No other significant finding. IMPRESSION: Small bilateral pleural effusions. Small bilateral lower lobe basilar segmental atelecta sis - airspace disease. TECHNICAL DOCUMENTATION: JOB ID: [id number] [id number] Quality ID # [id number]: Final reports with documentation of one or more dose reduction techniques (e.g., Au tomated exposure control, adjustment of the mA and/or kV according to patient size, use of iterative reconstruction technique) 2010 [employer]- All Rights Reserved Reading location - IP/workstation name: [email or web address]
[2017-11-25] MEDS: MEROPENEM 500 MG in NORMAL SALINE 50 ML IV SCH (22:29)
[2017-11-25] MEDS: TRAZODONE HCL 50 MG TABLET PO SCH (23:38)
[2017-11-26] MEDS ORDERED: NORMAL SALINE 1000 ML 1,000 ML IV PRN (00:27)
[2017-11-26] MEDS: HYDROCODONE/ACETAMINOPHEN 7.5-325 MG TABLET PO PRN (07:39)
[2017-11-26] MEDS: SEVELAMER HCL 400 MG TABLET PO SCH ×3 (07:40→17:45)
[2017-11-26] MEDS: LORAZEPAM 1 MG TABLET PO SCH (07:55)
[2017-11-26 09:26] LABS: HEMATOCRIT 26.3 % (37.9-51.0); HEMOGLOBIN 8.8 g/dL (13.5-17.0); MEAN CORPUSCULAR HEMOGLOBIN 30.8 pg (27.0-33.4); MEAN CORPUSCULAR HGB CONC 33.3 g/dL (32.0-36.0); MEAN CORPUSCULAR VOLUME 92 fl (80-97); PLATELET COUNT 108 10^3/uL (150-450); RED BLOOD COUNT 2.84 10^6/uL (4.35-5.55); RED CELL DISTRIBUTION WIDTH 15.1 % (11.5-14.0); WHITE BLOOD COUNT 4.2 10^3/uL (4.0-10.5)
[2017-11-26 09:58] LABS: ANION GAP 15 (5-19); BLOOD UREA NITROGEN 75 mg/dL (7-20); CALCIUM 8.5 mg/dL (8.4-10.2); CARBON DIOXIDE 25 mmol/L (22-30); CHLORIDE 93 mmol/L (98-107); GLUCOSE 97 mg/dL (75-110); POTASSIUM 5.3 mmol/L (3.6-5.0); SODIUM 132.5 mmol/L (137-145)
[2017-11-26] MEDS ORDERED: EPOETIN ALFA INJ 20000 UNIT/1 ML VIAL (RENAL) IV PRN (10:12)
[2017-11-26] MEDS: ALPRAZOLAM 0.5 MG TABLET PO SCH ×2 (12:34→21:37)
[2017-11-26] MEDS: DOXYCYCLINE HYCLATE 100 MG TABLET PO SCH ×2 (12:34→21:36)
[2017-11-26] MEDS: DOCUSATE SODIUM 100 MG CAPSULE PO SCH ×2 (12:34→17:45)
[2017-11-26] MEDS: LACTOBACILLUS ACIDOPHILUS 250 MG TAB PO SCH ×2 (12:35→17:45)
[2017-11-26] MEDS: ACETAMINOPHEN 325 MG TABLET PO PRN (15:09)
--- NOTE | 2017-11-26 15:34 | PDOC PROGRESS REPORT ---
Subjective Progress Note for:: 11/26/17 Subjective:: The patient is seen following HD. He seems a little more alert today than prior days, but remains confused. No new complaints. Reason For Visit: FEVER ESRD Physical Exam Vital Signs: Temp Pulse Resp BP Pulse Ox 98.5 F 88 16 134/86 H 100 11/26/17 07:01 11/26/17 07:01 11/26/17 07:01 11/26/17 07:01 11/26/17 09:04 Intake & Output 11/25/17 11/26/17 11/27/17 06:59 06:59 06:59 Intake Total 960 967 118 Output Total 0 0 2300 Balance 960 967 -2182 Weight 45.8 kg 44.7 kg General appearance: PRESENT: no acute distress, thin, other - The patient appears chronically ill and 15 years older than his stated age. Respiratory exam: PRESENT: other - No increased work of breathing. No wheezes, rales, or rhonchi. No tactile fremitus. Cardiovascular exam: PRESENT: RRR Pulses: PRESENT: other - diminished distal pulses GI/Abdominal exam: PRESENT: normal bowel sounds, soft, other - scaffoid. ABSENT : hernia, mass, tenderness Extremities exam: ABSENT: clubbing, joint swelling, +1 edema Neurological exam: PRESENT: awake, oriented to person, CN II-XII grossly intact. ABSENT: oriented to place, oriented to time, oriented to situation, motor sensory deficit Skin exam: PRESENT: dry, intact, warm Results Laboratory Results: 11/26/17 08:18 11/26/17 08:18 11/26/17 11/26/17 08:18 08:18 WBC 4.2 RBC 2.84 L Hgb 8.8 L Hct 26.3 L MCV 92 MCH 30.8 MCHC 33.3 RDW 15.1 H Plt Count 108 L Sodium 132.5 L Potassium 5.3 H Chloride 93 L Carbon Dioxide 25 Anion Gap 15 BUN 75 H Creatinine 13.36 H Est GFR ( Amer) 5 L Est GFR (Non-Af Amer) 4 L Glucose 97 Calcium 8.5 11/23/17 16:50 Cerebral Spinal Fluid - Csf Gram Stain - Final 11/23/17 16:50 Cerebral Spinal Fluid - Csf CSF Culture - Final NO GROWTH 3 DAYS 11/21/17 02:30 Blood Blood Culture - Final NO GROWTH IN 5 DAYS Impressions: Abdomen Ultrasound 11/20/17 18:09 IMPRESSION: Chronic changes in the right kidney as described. No acute findings in the abdomen. Abdomen/Pelvis CT 11/20/17 20:35 IMPRESSION: 1. No acute inflammatory or obstructive process identified. This exam was performed according to our departmental dose-optimization program, which includes automated exposure control, adjustment of the mA and/or kV according to patient size and/or use of iterative reconstruction technique. Chest X-Ray 11/22/17 00:00 IMPRESSION: Small right pleural effusion Cervical Spine MRI 11/23/17 00:00 IMPRESSION: No significant findings. No epidural masses or fluid collections are identified. Guidance Fluoroscopy 11/23/17 00:00 IMPRESSION: Lumbar puncture under fluoroscopy. No immediate complication. Head CT 11/23/17 00:00 IMPRESSION: NORMAL BRAIN CT WITHOUT CONTRAST. EVIDENCE OF ACUTE STROKE: NO. Lumbar Puncture 11/23/17 00:00 IMPRESSION: Lumbar puncture under fluoroscopy. No immediate complication. Lumbar Spine MRI 11/23/17 00:00 IMPRESSION: No epidural masses or fluid collections are identified. Mild degenerative changes as noted above. Other findings as noted above. Chest CT 11/25/17 00:00 IMPRESSION: Small bilateral pleural effusions. Small bilateral lower lobe basilar segmental atelectasis - airspace disease. Assessment & Plan - Diagnosis (1) Anemia in chronic kidney disease (CKD) Qualifiers: Chronic kidney disease stage: on chronic dialysis Qualified Code(s): N18.6 - End stage renal disease; D63.1 - Anemia in chronic kidney disease; D63.1 - Anemia in chronic kidney disease; Z99.2 - Dependence on renal dialysis; Z99.2 - Dependence on renal dialysis; Z99.2 - Dependence on renal dialysis; Z99.2 - Dependence on renal dialysis Is this a current diagnosis for this admission?: Yes Plan: I appreciate nephrology's assistance. Continue HD as per nephrology. Hgb stable at 8.8. Monitor. (2) Chronic renal failure Qualifiers: Chronic kidney disease stage: stage 5 Qualified Code(s): N18.5 - Chronic kidney disease, stage 5 Is this a current diagnosis for this admission?: Yes Plan: I appreciate nephrology's assistance. Continue HD as per nephrology. (3) History of marijuana use Is this a current diagnosis for this admission?: Yes Plan: Noted (4) Right flank pain Is this a current diagnosis for this admission?: Yes Plan: No renal cysts or evidence for pyelonephritis on CT. The patient is not complaining of right flank pain at this time. No CVA tenderness. (5) End stage renal disease Is this a current diagnosis for this admission?: Yes Plan: Continue HD as per nephrology. (6) Hyperkalemia Is this a current diagnosis for this admission?: Yes Plan: Resolved with HD. (7) Fever Qualifiers: Fever type: unspecified Qualified Code(s): R50.9 - Fever, unspecified Is this a current diagnosis for this admission?: Yes Plan: Fever of unknown origin. No growth from blood, CSF cultures. CT abdomen and pelvis unremarkable for source of fevers. CT chest is negative for acute abnormality. Temperatures are declining in magnitude and frequency. - Time Time Spent with patient: 35 or more minutes Medications reviewed and adjusted accordingly: Yes Anticipated discharge: SNF
--- NOTE | 2017-11-26 19:13 | PDOC PROGRESS REPORT ---
Subjective Progress Note for:: 11/26/17 Subjective:: I saw the patient during dialysis at around 8:20 AM this morning. During that time he was lethargic and not really responding to questions but is arousable. Subsequently about couple hours into dialysis our dialysis nurse Flora reports that the patient all of a sudden woke up and was talking normally and communicating well to her. Flora tells me that patient said is he feels fine. He also stated that the reason why he is just so sleepy because at night he does not have a good sleep because he is always awaken for some different reasons. The only complaints he has with hiccups during dialysis. Patient then tolerated dialysis without any problems or complications today. Reason For Visit: FEVER ESRD Physical Exam Vital Signs: Temp Pulse Resp BP Pulse Ox 102.5 F H 105 H 20 121/66 94 11/26/17 15:02 11/26/17 15:02 11/26/17 15:02 11/26/17 15:02 11/26/17 15:02 Intake & Output 11/25/17 11/26/17 11/27/17 06:59 06:59 06:59 Intake Total 960 967 203 Output Total 0 0 2300 Balance 960 967 -2097 Weight 45.8 kg 44.7 kg Vitals during dialysis this morning: Blood pressure 136/78, heart rate of 85, oxygen saturation 100% room air, blood flow rate of 300 mL/min, dialysate flow rate of 6 and mL per minute. Exam: General appearance: PRESENT: no acute distress, cooperative, fairly developed, fairly nourished Head exam: PRESENT: atraumatic, normocephalic Eye exam: PRESENT: conjunctiva pale, PERRLA. ABSENT: scleral icterus Neck exam: ABSENT: JVD Respiratory exam: PRESENT: Diminished breath sounds. ABSENT: crackles, rales, rhonchi, unlabored, wheezes Cardiovascular exam: PRESENT: Regular rate rhythm -+S1, +S2. ABSENT: diastolic murmur, systolic murmur GI/Abdominal exam: PRESENT: normal bowel sounds, soft. ABSENT: guarding, mass, tenderness Extremities exam: ABSENT: No edema Neurological exam: PRESENT: Lethargic but arousable when I saw him. Skin exam: PRESENT: dry, warm, Results Laboratory Results: 11/26/17 08:18 11/26/17 08:18 11/26/17 11/26/17 08:18 08:18 WBC 4.2 RBC 2.84 L Hgb 8.8 L Hct 26.3 L MCV 92 MCH 30.8 MCHC 33.3 RDW 15.1 H Plt Count 108 L Sodium 132.5 L Potassium 5.3 H Chloride 93 L Carbon Dioxide 25 Anion Gap 15 BUN 75 H Creatinine 13.36 H Est GFR ( Amer) 5 L Est GFR (Non-Af Amer) 4 L Glucose 97 Calcium 8.5 11/21/17 17:20 Blood Blood Culture - Final NO GROWTH IN 5 DAYS 11/21/17 17:00 Blood Blood Culture - Final NO GROWTH IN 5 DAYS 11/23/17 16:50 Cerebral Spinal Fluid - Csf Gram Stain - Final 11/23/17 16:50 Cerebral Spinal Fluid - Csf CSF Culture - Final NO GROWTH 3 DAYS 11/21/17 02:30 Blood Blood Culture - Final NO GROWTH IN 5 DAYS Impressions: Abdomen Ultrasound 11/20/17 18:09 IMPRESSION: Chronic changes in the right kidney as described. No acute findings in the abdomen. Abdomen/Pelvis CT 11/20/17 20:35 IMPRESSION: 1. No acute inflammatory or obstructive process identified. This exam was performed according to our departmental dose-optimization program, which includes automated exposure control, adjustment of the mA and/or kV according to patient size and/or use of iterative reconstruction technique. Chest X-Ray 11/22/17 00:00 IMPRESSION: Small right pleural effusion Cervical Spine MRI 11/23/17 00:00 IMPRESSION: No significant findings. No epidural masses or fluid collections are identified. Guidance Fluoroscopy 11/23/17 00:00 IMPRESSION: Lumbar puncture under fluoroscopy. No immediate complication. Head CT 11/23/17 00:00 IMPRESSION: NORMAL BRAIN CT WITHOUT CONTRAST. EVIDENCE OF ACUTE STROKE: NO. Lumbar Puncture 11/23/17 00:00 IMPRESSION: Lumbar puncture under fluoroscopy. No immediate complication. Lumbar Spine MRI 11/23/17 00:00 IMPRESSION: No epidural masses or fluid collections are identified. Mild degenerative changes as noted above. Other findings as noted above. Chest CT 11/25/17 00:00 IMPRESSION: Small bilateral pleural effusions. Small bilateral lower lobe basilar segmental atelectasis - airspace disease. Assessment & Plan - Diagnosis (1) End stage renal disease Is this a current diagnosis for this admission?: Yes Plan: We did dialysis today for 3 hours, using the patient's AV fistula, with 2 potassium bath, blood flow rate of 300 mL per minute, dialysate flow rate of 600 mL per minute, ultrafiltration 2-2.5 L as tolerated, no heparin and Procrit with 20,000 units during dialysis intravenously. We will continue hemodialysis support while here in the hospital. (2) Anemia in chronic kidney disease (CKD) Qualifiers: Chronic kidney disease stage: on chronic dialysis Qualified Code(s): N18.6 - End stage renal disease; D63.1 - Anemia in chronic kidney disease; D63.1 - Anemia in chronic kidney disease; Z99.2 - Dependence on renal dialysis; Z99.2 - Dependence on renal dialysis; Z99.2 - Dependence on renal dialysis; Z99.2 - Dependence on renal dialysis Is this a current diagnosis for this admission?: Yes Plan: Procrit given during dialysis treatment intravenously. (3) Fever Qualifiers: Fever type: unspecified Qualified Code(s): R50.9 - Fever, unspecified Is this a current diagnosis for this admission?: Yes Plan: Exact etiology of the fever is still unknown at this time. All workup has been negative so far including blood cultures, chest CT, and CSF cultures. ID was consulted and recommendations are actually followed. Patient continued to be on meropenem and doxycycline now. I will check the patient for autoimmune screening with MARK and HIV testing. (4) Hypertension Is this a current diagnosis for this admission?: Yes (5) Anxiety Is this a current diagnosis for this admission?: Yes (6) Right flank pain Is this a current diagnosis for this admission?: Yes (7) History of marijuana use Is this a current diagnosis for this admission?: Yes (8) Back pain Is this a current diagnosis for this admission?: Yes - Time Time with patient: 15-25 minutes
[2017-11-26] MEDS: MEROPENEM 500 MG in NORMAL SALINE 50 ML IV SCH (21:34)
[2017-11-26] MEDS: TRAZODONE HCL 50 MG TABLET PO SCH (21:36)
[2017-11-27 06:24] LABS: ABSOLUTE EOSINOPHILS # (AUTO) 0.1 10^3/uL (0.0-0.6); ABSOLUTE LYMPHOCYTES (AUTO) 0.4 10^3/uL (0.5-4.7); ABSOLUTE MONOCYTES (AUTO) 0.4 10^3/uL (0.1-1.4); ABSOLUTE NEUT (AUTO) 3.3 10^3/uL (1.7-8.2); BASOPHILS % (AUTO) 0.8 % (0-2); EOSINOPHILS % (AUTO) 3.4 % (0-6); HEMATOCRIT 28.7 % (37.9-51.0); HEMOGLOBIN 9.6 g/dL (13.5-17.0); LYMPHOCYTES % (AUTO) 8.9 % (13-45); MEAN CORPUSCULAR HEMOGLOBIN 30.7 pg (27.0-33.4); MEAN CORPUSCULAR HGB CONC 33.3 g/dL (32.0-36.0); MEAN CORPUSCULAR VOLUME 92 fl (80-97); MONOCYTES % (AUTO) 9.4 % (3-13); PLATELET COUNT 116 10^3/uL (150-450); RED BLOOD COUNT 3.12 10^6/uL (4.35-5.55); RED CELL DISTRIBUTION WIDTH 15.4 % (11.5-14.0); SEGMENTED NEUTROPHILS % (AUTO) 77.5 % (42-78); TOTAL CELLS COUNTED % (AUTO) 100 %; WHITE BLOOD COUNT 4.2 10^3/uL (4.0-10.5)
[2017-11-27 06:45] LABS: ANION GAP 14 (5-19); CALCIUM 8.6 mg/dL (8.4-10.2); CARBON DIOXIDE 30 mmol/L (22-30); CHLORIDE 96 mmol/L (98-107); GLUCOSE 85 mg/dL (75-110); POTASSIUM 4.6 mmol/L (3.6-5.0); SODIUM 139.8 mmol/L (137-145)
[2017-11-27 06:57] LABS: BLOOD UREA NITROGEN 38 mg/dL (7-20)
[2017-11-27] MEDS: SEVELAMER HCL 400 MG TABLET PO SCH ×2 (08:39→12:27)
[2017-11-27] MEDS: HYDROCODONE/ACETAMINOPHEN 7.5-325 MG TABLET PO PRN ×3 (08:42→21:20)
[2017-11-27] MEDS: DOXYCYCLINE HYCLATE 100 MG TABLET PO SCH ×2 (09:49→21:19)
[2017-11-27] MEDS: ALPRAZOLAM 0.5 MG TABLET PO SCH ×2 (09:50→21:17)
[2017-11-27] MEDS: LACTOBACILLUS ACIDOPHILUS 250 MG TAB PO SCH ×2 (09:50→18:19)
[2017-11-27] MEDS: DOCUSATE SODIUM 100 MG CAPSULE PO SCH ×2 (09:50→18:19)
--- NOTE | 2017-11-27 11:35 | PDOC PROGRESS REPORT ---
Subjective Progress Note for:: 11/27/17 Subjective:: According the patient was complaining of his chronic back pain this morning. He is somewhat sleep after pain meds, but is arouseable and oriented once awake. Reason For Visit: FEVER ESRD Physical Exam Vital Signs: Temp Pulse Resp BP Pulse Ox 98.8 F 87 18 121/74 98 11/27/17 07:50 11/27/17 07:50 11/27/17 07:50 11/27/17 07:50 11/27/17 07:50 Intake & Output 11/26/17 11/27/17 11/28/17 06:59 06:59 06:59 Intake Total 967 293 100 Output Total 0 2300 0 Balance 96 100 Weight 44.7 kg 42.2 kg General appearance: PRESENT: no acute distress, thin Neck exam: ABSENT: carotid bruit, JVD, lymphadenopathy, thyromegaly Respiratory exam: PRESENT: other - No increased work of breathing. No tactile fremitus.. ABSENT: rales, rhonchi, wheezes Cardiovascular exam: PRESENT: RRR. ABSENT: diastolic murmur, rubs, systolic murmur Pulses: PRESENT: other - Diminished distal pulses. Vascular exam: PRESENT: normal capillary refill GI/Abdominal exam: PRESENT: normal bowel sounds, soft, other - Scaffoid.. ABSENT: distended, guarding, mass, organolmegaly, rebound, tenderness Rectal exam: PRESENT: deferred Extremities exam: PRESENT: full ROM. ABSENT: calf tenderness, clubbing, pedal edema Neurological exam: PRESENT: alert, awake, oriented to person, oriented to place , oriented to time, oriented to situation, CN II-XII grossly intact. ABSENT: motor sensory deficit Psychiatric exam: PRESENT: appropriate affect, normal mood. ABSENT: homicidal ideation, suicidal ideation Skin exam: PRESENT: dry, intact, warm. ABSENT: cyanosis, rash Results Laboratory Results: 11/27/17 05:46 11/27/17 05:46 11/27/17 11/27/17 05:46 05:46 WBC 4.2 RBC 3.12 L Hgb 9.6 L Hct 28.7 L MCV 92 MCH 30.7 MCHC 33.3 RDW 15.4 H Plt Count 116 L Seg Neutrophils % 77.5 Lymphocytes % 8.9 L Monocytes % 9.4 Eosinophils % 3.4 Basophils % 0.8 Absolute Neutrophils 3.3 Absolute Lymphocytes 0.4 L Absolute Monocytes 0.4 Absolute Eosinophils 0.1 Absolute Basophils 0.0 Sodium 139.8 Potassium 4.6 Chloride 96 L Carbon Dioxide 30 Anion Gap 14 BUN 38 H D Creatinine 8.79 H Est GFR ( Amer) 8 L Est GFR (Non-Af Amer) 6 L Glucose 85 Calcium 8.6 11/21/17 17:20 Blood Blood Culture - Final NO GROWTH IN 5 DAYS 11/21/17 17:00 Blood Blood Culture - Final NO GROWTH IN 5 DAYS 11/23/17 16:50 Cerebral Spinal Fluid - Csf Gram Stain - Final 11/23/17 16:50 Cerebral Spinal Fluid - Csf CSF Culture - Final NO GROWTH 3 DAYS Impressions: Abdomen Ultrasound 11/20/17 18:09 IMPRESSION: Chronic changes in the right kidney as described. No acute findings in the abdomen. Abdomen/Pelvis CT 11/20/17 20:35 IMPRESSION: 1. No acute inflammatory or obstructive process identified. This exam was performed according to our departmental dose-optimization program, which includes automated exposure control, adjustment of the mA and/or kV according to patient size and/or use of iterative reconstruction technique. Chest X-Ray 11/22/17 00:00 IMPRESSION: Small right pleural effusion Cervical Spine MRI 11/23/17 00:00 IMPRESSION: No significant findings. No epidural masses or fluid collections are identified. Guidance Fluoroscopy 11/23/17 00:00 IMPRESSION: Lumbar puncture under fluoroscopy. No immediate complication. Head CT 11/23/17 00:00 IMPRESSION: NORMAL BRAIN CT WITHOUT CONTRAST. EVIDENCE OF ACUTE STROKE: NO. Lumbar Puncture 11/23/17 00:00 IMPRESSION: Lumbar puncture under fluoroscopy. No immediate complication. Lumbar Spine MRI 11/23/17 00:00 IMPRESSION: No epidural masses or fluid collections are identified. Mild degenerative changes as noted above. Other findings as noted above. Chest CT 11/25/17 00:00 IMPRESSION: Small bilateral pleural effusions. Small bilateral lower lobe basilar segmental atelectasis - airspace disease. Assessment & Plan - Diagnosis (1) Anemia in chronic kidney disease (CKD) Qualifiers: Chronic kidney disease stage: on chronic dialysis Qualified Code(s): N18.6 - End stage renal disease; D63.1 - Anemia in chronic kidney disease; D63.1 - Anemia in chronic kidney disease; Z99.2 - Dependence on renal dialysis; Z99.2 - Dependence on renal dialysis; Z99.2 - Dependence on renal dialysis; Z99.2 - Dependence on renal dialysis Is this a current diagnosis for this admission?: Yes Plan: I appreciate nephrology's assistance. Continue HD as per nephrology. Monitor hgb. Increased at 9.6 today. (2) Chronic renal failure Qualifiers: Chronic kidney disease stage: stage 5 Qualified Code(s): N18.5 - Chronic kidney disease, stage 5 Is this a current diagnosis for this admission?: Yes Plan: I appreciate nephrology's assistance. The patient is seen post HD today. (3) History of marijuana use Is this a current diagnosis for this admission?: Yes (4) Right flank pain Is this a current diagnosis for this admission?: Yes Plan: Chronic. No renal cysts or evidence for pyelonephritis on CT. The patient is not complaining of right flank pain at this time. No CVA tenderness. (5) End stage renal disease Is this a current diagnosis for this admission?: Yes Plan: Continue HD as per nephrology. (6) Hyperkalemia Is this a current diagnosis for this admission?: Yes Plan: Resolved with HD. (7) Fever Qualifiers: Fever type: unspecified Qualified Code(s): R50.9 - Fever, unspecified Is this a current diagnosis for this admission?: Yes Plan: Fever of unknown origin. No growth from blood, CSF cultures. CT abdomen and pelvis unremarkable for source of fevers. CT chest is negative for acute abnormality. Temperatures are declining in magnitude and frequency. - Time Time Spent with patient: 25-34 minutes - Plan Summary Plan Summary: Pt to be evaluated by PT/OT.
--- NOTE | 2017-11-27 16:56 | Progress Note ---
Provider Note Provider Note: ID Consult Note Asked to review patient's chart by Pharmacy. Pt not seen or examined. Reviewed provider reports, imaging reports, lab results, VS. Mr. Harman is a 52 year old man with PMH including oliguric ESRD on HD via AVF, NH, GERD, chronic hearing loss who was admitted on 11/21/17 with fever of unknown origin, the onset of which was intermittent fever 2-3 weeks ago per H&P. He received cefepime and vancomycin empirically as an outpatient with dialysis. He was initially suspected of perhaps having pyelonephritis due to R flank pain. No urinalysis or urine culture could be performed d/t low urine output. Other studies have included CXR, CT abdominal US, abd pelvis without IV contrast, MRI cervical and lumbar spine, and CT chest that have not shown any acute findings of note - only some small renal cysts, mild degenerative spine changes, small b/l pleural effusions and small b/l lower lobe basilar segmental atelectasis. CT head w/o contrast showed no acute evidence of stroke or hemorrhage. LP was performed given fever and agitation that showed no growth in CSF culture, no organisms on CSF gram stain, normal protein 55 and normal glucose 44, negative CSF antigen tests for N meningitidis, Strep pneumo, type B H influenzae, and Group B Strep. BCx on admission 11/21 x 3 sets have all been finalized as negative. Empirically, given the season, unknown tick exposure history, and thrombocytopenia with initial abnormality in AST, doxycycline was added on 11/23 for suspicion of RMSF or Ehrlichiosis. Vancomycin was discontinued after 11/23 in light of lack of MRSA growth from BCx. Meropenem was empirically started on admission and continued. Pt has had no new localizing signs or symptoms documented. Fevers have been reported to be declining in magnitude and frequency but have nonetheless recurred each day prior to this point. Tmax on 11/20 101.5, on 11/21 103F, on 101.8F, on 11/23 100.7F, on 11/24 101.6F, on 11/25 100.4F, on 11/26 102.5F. No fever thus far today 11/27. HIV screening test is in process. Impression/Recommendations Fever, unknown origin - Despite thorough workup based on history and exam, no source has been forthcoming. Evaluations have included CT chest/abd/pelvis, blood cultures ( yield admittedly likely decreased by prior abx administration before admission) , lumbar puncture with unremarkable CSF formula. - With empiric treatment for the possibility of RMSF of Ehrlichiosis, a duration of 7 day should be sufficient. Pt is on day 4 of doxycycline today. The lack of much impact on thrombocytopenia and fever in this patient casts doubt on either of these illnesses being at play, and if the patient denies having any outdoors activity then consider discontinuing doxycycline sooner. - Patient has been on meropenem since admission on 11/21, making today day 6. Without a clear source identified and no clear impact on fevers, consider discontinuing meropenem, particularly as drug fever remains in the differential even in absence of eosinophilia or rash. - F/u studies in process. Continue to evaluate patient clinically off of antibiotics. If there is a component of drug fever, this generally resolves 2-3 days after discontinuation. Oniel Ward MD [facility] Infectious Diseases pager [phone]
[2017-11-27] MEDS: SEVELAMER HCL 800 MG TABLET PO SCH (18:19)
[2017-11-27] MEDS: TRAZODONE HCL 50 MG TABLET PO SCH (21:17)
[2017-11-27] MEDS: MEROPENEM 500 MG in NORMAL SALINE 50 ML IV SCH (21:18)
[2017-11-28] MEDS ORDERED: NORMAL SALINE 1000 ML 1,000 ML IV PRN (05:00)
[2017-11-28] MEDS ORDERED: EPOETIN ALFA 10,000 UNIT in SYRINGE, DISPOSABLE, 1 EACH IV PRN (05:00)
[2017-11-28] MEDS ORDERED: EPOETIN ALFA INJ 20000 UNIT/1 ML VIAL (RENAL) IV PRN (05:00)
[2017-11-28 05:45] LABS: ABSOLUTE EOSINOPHILS # (AUTO) 0.2 10^3/uL (0.0-0.6); ABSOLUTE LYMPHOCYTES (AUTO) 0.5 10^3/uL (0.5-4.7); ABSOLUTE MONOCYTES (AUTO) 0.4 10^3/uL (0.1-1.4); ABSOLUTE NEUT (AUTO) 2.7 10^3/uL (1.7-8.2); HEMATOCRIT 26.2 % (37.9-51.0); HEMOGLOBIN 8.9 g/dL (13.5-17.0); LYMPHOCYTES % (AUTO) 12.2 % (13-45); MEAN CORPUSCULAR HEMOGLOBIN 31.1 pg (27.0-33.4); MEAN CORPUSCULAR HGB CONC 33.8 g/dL (32.0-36.0); MEAN CORPUSCULAR VOLUME 92 fl (80-97); MONOCYTES % (AUTO) 10.3 % (3-13); PLATELET COUNT 130 10^3/uL (150-450); RED BLOOD COUNT 2.85 10^6/uL (4.35-5.55); RED CELL DISTRIBUTION WIDTH 15.7 % (11.5-14.0); SEGMENTED NEUTROPHILS % (AUTO) 70.5 % (42-78); TOTAL CELLS COUNTED % (AUTO) 100 %; WHITE BLOOD COUNT 3.9 10^3/uL (4.0-10.5)
[2017-11-28] MEDS: LORAZEPAM 1 MG TABLET PO SCH (07:39)
[2017-11-28] MEDS: ONDANSETRON 4 MG TAB.RAPDIS PO PRN (07:39)
[2017-11-28 08:04] LABS: ANION GAP 17 (5-19); BLOOD UREA NITROGEN 55 mg/dL (7-20); CALCIUM 8.9 mg/dL (8.4-10.2); CARBON DIOXIDE 25 mmol/L (22-30); CHLORIDE 96 mmol/L (98-107); GLUCOSE 89 mg/dL (75-110); SODIUM 137.7 mmol/L (137-145)
[2017-11-28] MEDS: DOXYCYCLINE HYCLATE 100 MG TABLET PO SCH (13:18)
[2017-11-28] MEDS: DOCUSATE SODIUM 100 MG CAPSULE PO SCH ×2 (13:18→18:27)
[2017-11-28] MEDS: LACTOBACILLUS ACIDOPHILUS 250 MG TAB PO SCH ×2 (13:18→18:27)
--- NOTE | 2017-11-28 15:08 | PDOC PROGRESS REPORT ---
Subjective Progress Note for:: 11/28/17 Reason For Visit: Patient seen today on dialysis. I am covering this patient for Dr. Gotti who is who is away and will be back tomorrow. He is undergoing dialysis without any issues. His history was reviewed. Discussions were done with the treating dialysis nurse. Patient denies any abdominal pains today. No complaints of any fever or chills. Undergoing dialysis without any issues. Labs and medications were reviewed. Physical Exam Vital Signs: Temp Pulse Resp BP Pulse Ox 97.7 F 81 16 141/71 H 100 11/28/17 07:53 11/28/17 07:53 11/28/17 07:53 11/28/17 07:53 11/28/17 07:53 Intake & Output 11/27/17 11/28/17 11/29/17 06:59 06:59 06:59 Intake Total 293 340 Output Total 2300 200 -2006 140 Weight 42.2 kg 43.7 kg General appearance: PRESENT: no acute distress Respiratory exam: PRESENT: clear to auscultation kj. ABSENT: crackles, rhonchi GI/Abdominal exam: PRESENT: soft. ABSENT: organomegaly, tenderness Extremities exam: ABSENT: pedal edema Neurological exam: PRESENT: awake, oriented to person, oriented to place Results Laboratory Results: 11/28/17 05:08 11/28/17 07:33 11/28/17 11/28/17 11/28/17 05:08 05:08 07:33 WBC 3.9 L RBC 2.85 L Hgb 8.9 L Hct 26.2 L MCV 92 MCH 31.1 MCHC 33.8 RDW 15.7 H Plt Count 130 L Seg Neutrophils % 70.5 Lymphocytes % 12.2 L Monocytes % 10.3 Eosinophils % 6.0 Basophils % 1.0 Absolute Neutrophils 2.7 Absolute Lymphocytes 0.5 Absolute Monocytes 0.4 Absolute Eosinophils 0.2 Absolute Basophils 0.0 Sodium Cancelled 137.7 Potassium Cancelled 5.0 Chloride Cancelled 96 L Carbon Dioxide Cancelled 25 Anion Gap Cancelled 17 BUN Cancelled 55 H Creatinine Cancelled 10.87 H Est GFR ( Amer) Cancelled 6 L Est GFR (Non-Af Amer) Cancelled 5 L Glucose Cancelled 89 Calcium Cancelled 8.9 Impressions: Abdomen Ultrasound 11/20/17 18:09 IMPRESSION: Chronic changes in the right kidney as described. No acute findings in the abdomen. Abdomen/Pelvis CT 11/20/17 20:35 IMPRESSION: 1. No acute inflammatory or obstructive process identified. This exam was performed according to our departmental dose-optimization program, which includes automated exposure control, adjustment of the mA and/or kV according to patient size and/or use of iterative reconstruction technique. Chest X-Ray 11/22/17 00:00 IMPRESSION: Small right pleural effusion Cervical Spine MRI 11/23/17 00:00 IMPRESSION: No significant findings. No epidural masses or fluid collections are identified. Guidance Fluoroscopy 11/23/17 00:00 IMPRESSION: Lumbar puncture under fluoroscopy. No immediate complication. Head CT 11/23/17 00:00 IMPRESSION: NORMAL BRAIN CT WITHOUT CONTRAST. EVIDENCE OF ACUTE STROKE: NO. Lumbar Puncture 11/23/17 00:00 IMPRESSION: Lumbar puncture under fluoroscopy. No immediate complication. Lumbar Spine MRI 11/23/17 00:00 IMPRESSION: No epidural masses or fluid collections are identified. Mild degenerative changes as noted above. Other findings as noted above. Chest CT 11/25/17 00:00 IMPRESSION: Small bilateral pleural effusions. Small bilateral lower lobe basilar segmental atelectasis - airspace disease. Assessment & Plan - Diagnosis (1) End stage renal disease Is this a current diagnosis for this admission?: Yes Plan: Patient seen today undergoing dialysis without any issues. Vital signs are stable. Plan to remove between 1 and 2 L as tolerated.Orders were reviewed with and discussed with the treating dialysis nurse. (2) Fever Qualifiers: Fever type: unspecified Qualified Code(s): R50.9 - Fever, unspecified Is this a current diagnosis for this admission?: Yes Plan: Unknown etiology. Currently on antibiotics. Seems to be responding. Further management as per hospitalist. (3) Anemia in chronic kidney disease (CKD) Qualifiers: Chronic kidney disease stage: on chronic dialysis Qualified Code(s): N18.6 - End stage renal disease; D63.1 - Anemia in chronic kidney disease; D63.1 - Anemia in chronic kidney disease; Z99.2 - Dependence on renal dialysis; Z99.2 - Dependence on renal dialysis; Z99.2 - Dependence on renal dialysis; Z99.2 - Dependence on renal dialysis Is this a current diagnosis for this admission?: Yes Plan: Adjust erythropoietin. (4) Hypertension Is this a current diagnosis for this admission?: Yes Plan: Relatively controlled. See response to dialysis. (5) Right flank pain, chronic Is this a current diagnosis for this admission?: Yes Plan: As per hospitalist.
--- NOTE | 2017-11-28 16:18 | PDOC PROGRESS REPORT ---
Subjective Progress Note for:: 11/28/17 Subjective:: The patient was seen in dialysis. He is somnolent. Reason For Visit: FEVER ESRD Physical Exam Vital Signs: Temp Pulse Resp BP Pulse Ox 97.7 F 81 16 141/71 H 100 11/28/17 07:53 11/28/17 07:53 11/28/17 07:53 11/28/17 07:53 11/28/17 07:53 Intake & Output 11/27/17 11/28/17 11/29/17 06:59 06:59 06:59 Intake Total 293 340 Output Total 2300 200 2700 -2006 140 -2700 Weight 42.2 kg 43.7 kg General appearance: PRESENT: no acute distress, thin, other - Chronically ill appearing. Respiratory exam: PRESENT: other - No increased work of breathing.. ABSENT: rales, rhonchi, wheezes Cardiovascular exam: PRESENT: RRR, other - No lateral PMI. No thrills.. ABSENT : gallop, rubs, systolic murmur Pulses: PRESENT: normal femoral pulses, normal dorsalis pedis pul GI/Abdominal exam: PRESENT: soft, other - Scaffoid.. ABSENT: distended, hernia , mass, organolmegaly, tenderness Extremities exam: PRESENT: full ROM. ABSENT: pedal edema, tenderness, +1 edema Skin exam: PRESENT: dry, intact, warm Results Laboratory Results: 11/28/17 05:08 11/28/17 07:33 11/28/17 11/28/17 11/28/17 05:08 05:08 07:33 WBC 3.9 L RBC 2.85 L Hgb 8.9 L Hct 26.2 L MCV 92 MCH 31.1 MCHC 33.8 RDW 15.7 H Plt Count 130 L Seg Neutrophils % 70.5 Lymphocytes % 12.2 L Monocytes % 10.3 Eosinophils % 6.0 Basophils % 1.0 Absolute Neutrophils 2.7 Absolute Lymphocytes 0.5 Absolute Monocytes 0.4 Absolute Eosinophils 0.2 Absolute Basophils 0.0 Sodium Cancelled 137.7 Potassium Cancelled 5.0 Chloride Cancelled 96 L Carbon Dioxide Cancelled 25 Anion Gap Cancelled 17 BUN Cancelled 55 H Creatinine Cancelled 10.87 H Est GFR ( Amer) Cancelled 6 L Est GFR (Non-Af Amer) Cancelled 5 L Glucose Cancelled 89 Calcium Cancelled 8.9 Impressions: Abdomen Ultrasound 11/20/17 18:09 IMPRESSION: Chronic changes in the right kidney as described. No acute findings in the abdomen. Abdomen/Pelvis CT 11/20/17 20:35 IMPRESSION: 1. No acute inflammatory or obstructive process identified. This exam was performed according to our departmental dose-optimization program, which includes automated exposure control, adjustment of the mA and/or kV according to patient size and/or use of iterative reconstruction technique. Chest X-Ray 11/22/17 00:00 IMPRESSION: Small right pleural effusion Cervical Spine MRI 11/23/17 00:00 IMPRESSION: No significant findings. No epidural masses or fluid collections are identified. Guidance Fluoroscopy 11/23/17 00:00 IMPRESSION: Lumbar puncture under fluoroscopy. No immediate complication. Head CT 11/23/17 00:00 IMPRESSION: NORMAL BRAIN CT WITHOUT CONTRAST. EVIDENCE OF ACUTE STROKE: NO. Lumbar Puncture 11/23/17 00:00 IMPRESSION: Lumbar puncture under fluoroscopy. No immediate complication. Lumbar Spine MRI 11/23/17 00:00 IMPRESSION: No epidural masses or fluid collections are identified. Mild degenerative changes as noted above. Other findings as noted above. Chest CT 11/25/17 00:00 IMPRESSION: Small bilateral pleural effusions. Small bilateral lower lobe basilar segmental atelectasis - airspace disease. Assessment & Plan - Diagnosis (1) Anemia in chronic kidney disease (CKD) Qualifiers: Chronic kidney disease stage: on chronic dialysis Qualified Code(s): N18.6 - End stage renal disease; D63.1 - Anemia in chronic kidney disease; D63.1 - Anemia in chronic kidney disease; Z99.2 - Dependence on renal dialysis; Z99.2 - Dependence on renal dialysis; Z99.2 - Dependence on renal dialysis; Z99.2 - Dependence on renal dialysis Is this a current diagnosis for this admission?: Yes Plan: I appreciate nephrology's assistance. Continue HD as per nephrology. Monitor hgb. Stable. (2) Chronic renal failure Qualifiers: Chronic kidney disease stage: stage 5 Qualified Code(s): N18.5 - Chronic kidney disease, stage 5 Is this a current diagnosis for this admission?: Yes Plan: I appreciate nephrology's assistance. The patient is seen in HD today. (3) History of marijuana use Is this a current diagnosis for this admission?: Yes (4) Right flank pain Is this a current diagnosis for this admission?: Yes Plan: Chronic. No renal cysts or evidence for pyelonephritis on CT. The patient is not complaining of right flank pain at this time. No CVA tenderness. (5) End stage renal disease Is this a current diagnosis for this admission?: Yes Plan: Continue HD as per nephrology. (6) Hyperkalemia Is this a current diagnosis for this admission?: Yes Plan: Resolved with HD. (7) Fever Qualifiers: Fever type: unspecified Qualified Code(s): R50.9 - Fever, unspecified Is this a current diagnosis for this admission?: Yes Plan: Fever of unknown origin. No growth from blood, CSF cultures. CT abdomen and pelvis unremarkable for source of fevers. CT chest is negative for acute abnormality. I have read and appreciate Dr. Ward's consult. I will stop doxycycline and meropenem. The patient has not had fevers now for 2 days. - Time Time Spent with patient: 35 or more minutes Medications reviewed and adjusted accordingly: Yes Anticipated discharge: SNF
[2017-11-28 16:42] LABS: HSV I DNA Negative (Negative)
[2017-11-28] MEDS: SEVELAMER HCL 800 MG TABLET PO SCH (19:08)
[2017-11-28] MEDS: ALPRAZOLAM 0.5 MG TABLET PO SCH (19:08)
[2017-11-28] MEDS: HYDROCODONE/ACETAMINOPHEN 7.5-325 MG TABLET PO PRN (21:19)
[2017-11-28] MEDS: TRAZODONE HCL 50 MG TABLET PO SCH (21:19)
[2017-11-29] MEDS: HYDROCODONE/ACETAMINOPHEN 7.5-325 MG TABLET PO PRN ×2 (03:17→10:00)
[2017-11-29 06:30] LABS: ABSOLUTE EOSINOPHILS # (AUTO) 0.1 10^3/uL (0.0-0.6); ABSOLUTE LYMPHOCYTES (AUTO) 0.5 10^3/uL (0.5-4.7); ABSOLUTE MONOCYTES (AUTO) 0.5 10^3/uL (0.1-1.4); ABSOLUTE NEUT (AUTO) 3.6 10^3/uL (1.7-8.2); BASOPHILS % (AUTO) 1.1 % (0-2); EOSINOPHILS % (AUTO) 2.1 % (0-6); HEMATOCRIT 33.7 % (37.9-51.0); LYMPHOCYTES % (AUTO) 11.2 % (13-45); MEAN CORPUSCULAR HEMOGLOBIN 31.1 pg (27.0-33.4); MEAN CORPUSCULAR HGB CONC 33.6 g/dL (32.0-36.0); MEAN CORPUSCULAR VOLUME 93 fl (80-97); MONOCYTES % (AUTO) 9.8 % (3-13); PLATELET COUNT 137 10^3/uL (150-450); RED BLOOD COUNT 3.64 10^6/uL (4.35-5.55); RED CELL DISTRIBUTION WIDTH 15.4 % (11.5-14.0); SEGMENTED NEUTROPHILS % (AUTO) 75.8 % (42-78); TOTAL CELLS COUNTED % (AUTO) 100 %; WHITE BLOOD COUNT 4.7 10^3/uL (4.0-10.5)
[2017-11-29 06:40] LABS: ALANINE AMINOTRANSFERASE 18 U/L (21-72); ALKALINE PHOSPHATASE 100 U/L (38-126); ANION GAP 18 (5-19); ASPARTATE AMINO TRANSFERASE 23 U/L (17-59); BILIRUBIN,DIRECT 0.9 mg/dL (0.0-0.4); BILIRUBIN,TOTAL 0.9 mg/dL (0.2-1.3); CALCIUM 9.4 mg/dL (8.4-10.2); CARBON DIOXIDE 26 mmol/L (22-30); CHLORIDE 96 mmol/L (98-107); GLUCOSE 89 mg/dL (75-110); POTASSIUM 4.5 mmol/L (3.6-5.0); SODIUM 140.2 mmol/L (137-145); TOTAL PROTEIN 8.2 g/dL (6.3-8.2)
[2017-11-29 07:07] LABS: BLOOD UREA NITROGEN 32 mg/dL (7-20)
[2017-11-29 07:08] LABS: HEMOGLOBIN 11.3 g/dL (13.5-17.0)
[2017-11-29 07:10] LABS: HSV II DNA Negative (Negative)
[2017-11-29] MEDS: DOCUSATE SODIUM 100 MG CAPSULE PO SCH (09:59)
[2017-11-29] MEDS: LACTOBACILLUS ACIDOPHILUS 250 MG TAB PO SCH (10:00)
[2017-11-29] MEDS: ONDANSETRON 4 MG TAB.RAPDIS PO PRN (10:00)
[2017-11-29 10:41] VITALS: BP 112/67
[2017-11-29] MEDS: SEVELAMER HCL 800 MG TABLET PO SCH (11:27)
--- NOTE | 2017-11-29 15:56 | PDOC DISCHARGE SUMMARY ---
General - Admit/Disc Date/PCP Admission Date/Primary Care Provider: 11/21/17 00:04 Discharge Date: 11/29/17 - Discharge Diagnosis (1) Anemia in chronic kidney disease (CKD) Is this a current diagnosis for this admission?: Yes (2) Chronic renal failure Is this a current diagnosis for this admission?: Yes (3) History of marijuana use Is this a current diagnosis for this admission?: Yes (4) Right flank pain Is this a current diagnosis for this admission?: Yes (5) End stage renal disease Is this a current diagnosis for this admission?: Yes (6) Hyperkalemia Is this a current diagnosis for this admission?: Yes (7) Fever Is this a current diagnosis for this admission?: Yes - Additional Information Resuscitation Status: Full Code Discharge Diet: Other (Comments) Discharge Activity: Activity As Tolerated, Balance Activity w/Rest, No Driving Prescriptions: Docusate Sodium [Colace 100 mg Capsule] 100 mg PO BID #60 capsule Hydrocodone/Acetaminophen [[place] 7.5-325 mg Tablet] 1 tab PO Q6HP PRN #20 tablet PRN Reason: Trazodone HCl [Desyrel 50 mg Tablet] 50 mg PO QHS #30 tablet Home Medications: Lorazepam [Ativan 1 mg Tablet] 1 mg PO .BEFORE DIALYSIS 11/21/17 Sevelamer Carbonate [Renvela] 3,200 mg PO MEALS 11/21/17 Docusate Sodium [Colace 100 mg Capsule] 100 mg PO BID #60 capsule 11/29/17 Hydrocodone/Acetaminophen [[place] 7.5-325 mg Tablet] 1 tab PO Q6HP PRN #20 tablet 11/29/17 Trazodone HCl [Desyrel 50 mg Tablet] 50 mg PO QHS #30 tablet 11/29/17 History of Present Illness History of Present Illness: NEEL GONZALES is a 52 year old male with a past medical history of oliguric end- stage renal failure Sunday dialysis with Dr. Gotti and right- sided deafness. He presents with 2 weeks of intermittent right flank pain associated with fever nausea without vomiting prompting him to seek evaluation emergency room. He denies pain and fever related to eating. He denies recent antibiotic use, diarrhea or open wound. In the emergency room is found to have a temperature of 102.8, an unremarkable CT abdomen pelvis but a right upper quadrant ultrasound showing renal cysts. He receives Tylenol, vancomycin, cefepime and referred to the hospitalist for admission Hospital Course Hospital Course: The patient was admitted to a medical bed. He was given IV vancomycin and meropenem, IV fluids, and antipyretics. Blood cultures and urine cultures were taken and have showed no growth. CT abdomen and pelvis were unremarkable. Dr. Ward of [facility] was consulted she recommended CT of the chest and LP. Both of these were negative. Rickettsial disease was considered, but was thought to be unlikely. The patient's fevers became less frequent. His antibiotics were stopped on 11/28/2017 on the advice of Dr. Ward. The patient will be discharged today in fair condition. Upon discharge he has a normal white count as he has had all along, and his fevers have spaced out to about one every 36 hours and the magnitude has decreased. Physical Exam Vital Signs: Temp Pulse Resp BP Pulse Ox 98.3 F 84 16 112/67 98 11/29/17 10:38 11/29/17 10:38 11/29/17 10:38 11/29/17 10:38 11/29/17 10:38 Intake & Output 11/28/17 11/29/17 11/30/17 06:59 06:59 06:59 Intake Total 340 558 Output Total 200 2700 Balance 140 -2142 Weight 43.7 kg 42.3 kg General appearance: PRESENT: no acute distress Respiratory exam: PRESENT: other - No increased work of breathing. No wheezes, rales, or rhonchi. No tactile fremitus. Cardiovascular exam: PRESENT: RRR, other - No lateral PMI. No thrills.. ABSENT : gallop, rubs, systolic murmur Pulses: PRESENT: other - Diminished distal pulses. GI/Abdominal exam: PRESENT: normal bowel sounds, soft. ABSENT: hernia, mass, organolmegaly, tenderness Extremities exam: ABSENT: pedal edema, tenderness, +1 edema Neurological exam: PRESENT: alert, awake, oriented to person, oriented to place , oriented to time, motor sensory deficit. ABSENT: CN II-XII grossly intact Psychiatric exam: PRESENT: appropriate affect, normal mood Skin exam: PRESENT: dry, intact, warm Results Laboratory Results: 11/29/17 06:08 11/29/17 06:08 11/29/17 11/29/17 06:08 06:08 WBC 4.7 RBC 3.64 L Hgb 11.3 L D Hct 33.7 L MCV 93 MCH 31.1 MCHC 33.6 RDW 15.4 H Plt Count 137 L Seg Neutrophils % 75.8 Lymphocytes % 11.2 L Monocytes % 9.8 Eosinophils % 2.1 Basophils % 1.1 Absolute Neutrophils 3.6 Absolute Lymphocytes 0.5 Absolute Monocytes 0.5 Absolute Eosinophils 0.1 Absolute Basophils 0.0 Sodium 140.2 Potassium 4.5 Chloride 96 L Carbon Dioxide 26 Anion Gap 18 BUN 32 H D Creatinine 8.04 H Est GFR ( Amer) 9 L Est GFR (Non-Af Amer) 7 L Glucose 89 Calcium 9.4 Magnesium 2.3 Total Bilirubin 0.9 AST 23 ALT 18 L Alkaline Phosphatase 100 Total Protein 8.2 Albumin 4.0 Impressions: Abdomen Ultrasound 11/20/17 18:09 IMPRESSION: Chronic changes in the right kidney as described. No acute findings in the abdomen. Abdomen/Pelvis CT 11/20/17 20:35 IMPRESSION: 1. No acute inflammatory or obstructive process identified. This exam was performed according to our departmental dose-optimization program, which includes automated exposure control, adjustment of the mA and/or kV according to patient size and/or use of iterative reconstruction technique. Chest X-Ray 11/22/17 00:00 IMPRESSION: Small right pleural effusion Cervical Spine MRI 11/23/17 00:00 IMPRESSION: No significant findings. No epidural masses or fluid collections are identified. Guidance Fluoroscopy 11/23/17 00:00 IMPRESSION: Lumbar puncture under fluoroscopy. No immediate complication. Head CT 11/23/17 00:00 IMPRESSION: NORMAL BRAIN CT WITHOUT CONTRAST. EVIDENCE OF ACUTE STROKE: NO. Lumbar Puncture 11/23/17 00:00 IMPRESSION: Lumbar puncture under fluoroscopy. No immediate complication. Lumbar Spine MRI 11/23/17 00:00 IMPRESSION: No epidural masses or fluid collections are identified. Mild degenerative changes as noted above. Other findings as noted above. Chest CT 11/25/17 00:00 IMPRESSION: Small bilateral pleural effusions. Small bilateral lower lobe basilar segmental atelectasis - airspace disease. Qualifiers - * PATIENT BEING DISCHARGED WITH ANY OF THE FOLLOWING DIAGNOSIS: No
[2017-11-29] MEDS ORDERED: SEVELAMER HCL 800 MG TABLET PO PRN (20:00)
== END 2017-11-29 12:51 | disposition home or self-care (01) | DRG 682 ==
LOC: ER 17:12 → EH 11-21 00:04 → 5 11-21 03:42 → 3S 11-23 14:19
PROVIDERS: ADMIT Internal Medicine; ATTEND Internal Medicine
PROC: 5A1D70Z Performance of Urinary Filtration, Intermittent, Less than 6 Hours Per Day (ICD-10-PCS; principal; 2017-11-21)
PROC: 3E0F73Z Introduction of Anti-inflammatory into Respiratory Tract, Via Natural or Artificial Opening (ICD-10-PCS; 2017-11-21)
PROC: 5A1D70Z Performance of Urinary Filtration, Intermittent, Less than 6 Hours Per Day (ICD-10-PCS; 2017-11-23)
PROC: 009U3ZX Drainage of Spinal Canal, Percutaneous Approach, Diagnostic (ICD-10-PCS; 2017-11-23)
PROC: B01BZZZ Fluoroscopy of Spinal Cord (ICD-10-PCS; 2017-11-23)
PROC: 5A1D70Z Performance of Urinary Filtration, Intermittent, Less than 6 Hours Per Day (ICD-10-PCS; 2017-11-26)
PROC: 5A1D70Z Performance of Urinary Filtration, Intermittent, Less than 6 Hours Per Day (ICD-10-PCS; 2017-11-28)
DX: I12.0 Hypertensive chronic kidney disease with stage 5 chronic kidney disease or end stage renal disease (principal); N18.6 End stage renal disease; Q61.02 Congenital multiple renal cysts; N25.81 Secondary hyperparathyroidism of renal origin; D63.1 Anemia in chronic kidney disease; E87.5 Hyperkalemia; F12.90 Cannabis use, unspecified, uncomplicated; H91.90 Unspecified hearing loss, unspecified ear; F41.1 Generalized anxiety disorder; K21.9 Gastro-esophageal reflux disease without esophagitis; F10.21 Alcohol dependence, in remission; D69.6 Thrombocytopenia, unspecified; I25.10 Atherosclerotic heart disease of native coronary artery without angina pectoris; I25.2 Old myocardial infarction; Z99.2 Dependence on renal dialysis; Z88.0 Allergy status to penicillin; Z79.82 Long term (current) use of aspirin; Z79.899 Other long term (current) drug therapy; Z83.3 Family history of diabetes mellitus; Z82.49 Family history of ischemic heart disease and other diseases of the circulatory system; Z80.42 Family history of malignant neoplasm of prostate; Z80.9 Family history of malignant neoplasm, unspecified
CPT/HCPCS: 36415; 62270; 70450; 71045; 71046; 71260; 72141; 72148; 74176; 76705; 77003; 80048; 80053; 80074; 80076; 82550; 82803; 82945; 83605; 83735; 84100; 84157; 85025; 85027; 85610; 85652; 86038; 86317; 86403; 86701; 86702; 86704; 87040; 87070; 87205; 87340; 87529; 89050; 94640; 99285; G8978-GP; G8979-GP; G8987-GO; G8988-GO; J0692; J1644; J2060; J2185; J3010; J3370; J3490; J7060; J7620; Q4081; S0119

== ENCOUNTER 2018-01-26 10:40 | Emergency (ER) | payer MEDICARE, MEDICAID ==
--- NOTE | 2018-01-26 11:21 | ER Document Report ---
ED Medical Screen (RME) - General Chief Complaint: General Weakness Stated Complaint: WEAKNESS, SHORT OF BREATH/DIALYSIS Time Seen by Provider: 01/26/18 11:16 Mode of Arrival: Ambulatory Information source: Patient Notes: Patient presented to the emergency room complaining of shortness of breath. He is a dialysis patient on his last dialysis was on Sunday this week. Patient has not had dialysis in 5 days. Patient denies chest pain or abdominal pain. I have greeted and performed a rapid initial assessment of this patient. A comprehensive ED assessment and evaluation of the patient, analysis of test results and completion of the medical decision making process will be conducted by additional ED providers. TRAVEL OUTSIDE OF THE [place] IN LAST 30 DAYS: No - Related Data Allergies/Adverse Reactions: Penicillins Allergy (Severe, Verified 01/26/18 10:41) Hives Past Medical History - Past Medical History Cardiac Medical History: Reports: Hx Heart Attack - 2015 Renal/ Medical History: Reports: Hx End Stage Renal Disease, Hx Hemodialysis. Denies: Hx Peritoneal Dialysis GI Medical History: Reports: Hx Gastroesophageal Reflux Disease Past Surgical History: Reports: Hx Cardiac Catheterization - 05/2012, Hx Vascular Surgery - PermCath placement - Immunizations Hx Diphtheria, Pertussis, Tetanus Vaccination: Yes History of Influenza Vaccine for 02/2017 - 07/2017 Season: Unknown Physical Exam - Vital signs Vitals: Temp Pulse Resp BP Pulse Ox 98.1 F 81 20 174/87 H 92 01/26/18 10:46 01/26/18 10:46 01/26/18 10:46 01/26/18 10:46 01/26/18 10:46 Course - Vital Signs Vital signs: Temp Pulse Resp BP Pulse Ox 98.1 F 81 20 174/87 H 92 01/26/18 10:46 01/26/18 10:46 01/26/18 10:46 01/26/18 10:46 01/26/18 10:46
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
[2018-01-26] MEDS ORDERED: NITROGLYCERIN 0.4 MG/TAB 25 TAB/BOTTLE SL ONE (12:11)
[2018-01-26 12:14] LABS: ABSOLUTE BASOPHILS # (AUTO) 0.1 10^3/uL (0.0-0.2); ABSOLUTE EOSINOPHILS # (AUTO) 0.2 10^3/uL (0.0-0.6); ABSOLUTE LYMPHOCYTES (AUTO) 0.7 10^3/uL (0.5-4.7); ABSOLUTE MONOCYTES (AUTO) 0.6 10^3/uL (0.1-1.4); ABSOLUTE NEUT (AUTO) 4.4 10^3/uL (1.7-8.2); BASOPHILS % (AUTO) 1.3 % (0-2); EOSINOPHILS % (AUTO) 3.2 % (0-6); HEMATOCRIT 41.6 % (37.9-51.0); HEMOGLOBIN 13.5 g/dL (13.5-17.0); LYMPHOCYTES % (AUTO) 12.3 % (13-45); MEAN CORPUSCULAR HEMOGLOBIN 30.6 pg (27.0-33.4); MEAN CORPUSCULAR HGB CONC 32.5 g/dL (32.0-36.0); MEAN CORPUSCULAR VOLUME 94 fl (80-97); MONOCYTES % (AUTO) 10.6 % (3-13); PLATELET COUNT 187 10^3/uL (150-450); RED BLOOD COUNT 4.41 10^6/uL (4.35-5.55); SEGMENTED NEUTROPHILS % (AUTO) 72.6 % (42-78); TOTAL CELLS COUNTED % (AUTO) 100 %
--- NOTE | 2018-01-26 12:48 | RADIOLOGY REPORT (SQ) ---
EXAM DESCRIPTION: CHEST SINGLE VIEW COMPLETED DATE/TIME: 01/26/2018 12:35 pm REASON FOR STUDY: Shortness of breath COMPARISON: 11/22/2017 EXAM PARAMETERS: NUMBER OF VIEWS: One view. TECHNIQUE: Single frontal radiographic view of the chest acquired. RADIATION DOSE: NA LIMITATIONS: None. FINDINGS: LUNGS AND PLEURA: Parenchymal opacity at the right lung base. Left lung is clear. MEDIASTINUM AND HILAR STRUCTURES: No masses. Contour normal. HEART AND VASCULAR STRUCTURES: Heart enlarged with vascular congestion. BONES: No acute findings. HARDWARE: None in the chest. OTHER: No other significant finding. IMPRESSION: Right basilar pneumonia. Vascular congestion. TECHNICAL DOCUMENTATION: JOB ID: [id number] All Rights Reserved Reading location - IP/workstation name: [email or web address]
[2018-01-26] MEDS ORDERED: FUROSEMIDE INJ/PF 40 MG/4 ML SDV IV ONE ×2 (12:58→14:29)
[2018-01-26 13:16] LABS: ALANINE AMINOTRANSFERASE 10 U/L (21-72); ALBUMIN 4.6 g/dL (3.5-5.0); ALKALINE PHOSPHATASE 98 U/L (38-126); ASPARTATE AMINO TRANSFERASE 19 U/L (17-59); BLOOD UREA NITROGEN 113 mg/dL (7-20); CALCIUM 8.8 mg/dL (8.4-10.2); CARBON DIOXIDE 17 mmol/L (22-30); GLUCOSE 80 mg/dL (75-110); TOTAL PROTEIN 7.9 g/dL (6.3-8.2)
[2018-01-26 13:21] LABS: CHLORIDE 98 mmol/L (98-107); SODIUM 137.1 mmol/L (137-145)
[2018-01-26 13:25] LABS: ANION GAP 22 (5-19); POTASSIUM 7.3 mmol/L (3.6-5.0)
[2018-01-26] MEDS ORDERED: DEXTROSE 50%-WATER 25 GM/50 ML DISP.SYRIN IV ONE (13:49)
[2018-01-26] MEDS ORDERED: INSULIN REG, HUMAN 100 UNIT/ML 3 ML VIAL (PYX) IV ONE (13:49)
[2018-01-26] MEDS ORDERED: SODIUM POLYSTYRENE SULFONATE 15 GM/60 ML PO ONE (13:49)
[2018-01-26] MEDS ORDERED: SODIUM POLYSTYRENE SULFONATE 15 GM/60 ML ONE (15:10)
[2018-01-26 15:40] LABS: TROPONIN I 0.029 ng/mL
[2018-01-26 17:05] LABS: BLOOD UREA NITROGEN 113 mg/dL (7-20); CALCIUM 8.5 mg/dL (8.4-10.2); CARBON DIOXIDE 17 mmol/L (22-30); CHLORIDE 100 mmol/L (98-107); GLUCOSE 125 mg/dL (75-110); SODIUM 138.8 mmol/L (137-145)
[2018-01-26 17:30] LABS: ANION GAP 22 (5-19)
[2018-01-26 17:31] LABS: POTASSIUM 6.3 mmol/L (3.6-5.0)
[2018-01-26] MEDS ORDERED: ALBUTEROL SULFATE 0.083% NEB 2.5 MG/3 ML AMPUL NEB ONE (18:09)
[2018-01-26 19:03] VITALS: BP 163/81
--- NOTE | 2018-01-26 21:36 | EKG REPORT ---
SEVERITY:- ABNORMAL ECG - SINUS RHYTHM ATRIAL PREMATURE COMPLEX PROBABLE LVH WITH SECONDARY REPOL ABNRM : Confirmed by: Gabriel Skaggs 26-Jan-2018 21:35:59
--- NOTE | 2018-01-26 21:36 | EKG REPORT ---
SEVERITY:- ABNORMAL ECG - SINUS RHYTHM PROBABLE LVH WITH SECONDARY REPOL ABNRM BORDERLINE PROLONGED QT INTERVAL : Confirmed by: Gabriel Skaggs 26-Jan-2018 21:36:04
[2018-01-26] MEDS ORDERED: ONDANSETRON HCL INJ/PF 4 MG/2 ML SDV IV ONE (21:43)
[2018-01-26 22:00] LABS: BLOOD UREA NITROGEN 117 mg/dL (7-20); CALCIUM 9.1 mg/dL (8.4-10.2); GLUCOSE 60 mg/dL (75-110); POTASSIUM 5.8 mmol/L (3.6-5.0)
[2018-01-26 22:05] LABS: CARBON DIOXIDE 18 mmol/L (22-30); CHLORIDE 98 mmol/L (98-107); SODIUM 142.1 mmol/L (137-145)
[2018-01-26 22:09] LABS: ANION GAP 26 (5-19)
== END 2018-01-26 23:30 | disposition home or self-care (01) ==
LOC: ER 10:40
DX: E87.5 Hyperkalemia (principal); R53.1 Weakness; R06.02 Shortness of breath; R22.0 Localized swelling, mass and lump, head; R07.9 Chest pain, unspecified; R60.0 Localized edema; Z99.2 Dependence on renal dialysis
CPT/HCPCS: 93005; 94640; 99285; 36415; 85025; 80048; 80053; 84484; 83880; 71045; 93010; J3490; J1940; A9270 ×2; J1815

== ENCOUNTER 2018-03-05 05:46 | Day surgery (SDC) | payer MEDICARE, MEDICAID ==
[~2018-03-05 05:46] MED LIST: DIAZEPAM 5 MG TABLET PO PRN
[2018-03-05] MEDS ORDERED: OXYCODONE-ACETAMINOPHEN 5-325 MG TABLET ONE (06:04)
[2018-03-05] MEDS ORDERED: DIAZEPAM 5 MG TABLET ONE (06:04)
[2018-03-05] MEDS ORDERED: OXYCODONE-ACETAMINOPHEN 5-325 MG TABLET PO ONE (06:15)
[2018-03-05 06:26] LABS: HEMATOCRIT 42.5 % (37.9-51.0); HEMOGLOBIN 14.1 g/dL (13.5-17.0); MEAN CORPUSCULAR HEMOGLOBIN 31.1 pg (27.0-33.4); MEAN CORPUSCULAR HGB CONC 33.1 g/dL (32.0-36.0); MEAN CORPUSCULAR VOLUME 94 fl (80-97); PLATELET COUNT 148 10^3/uL (150-450); RED BLOOD COUNT 4.52 10^6/uL (4.35-5.55); RED CELL DISTRIBUTION WIDTH 20.1 % (11.5-14.0); WHITE BLOOD COUNT 3.9 10^3/uL (4.0-10.5)
[2018-03-05 06:33] LABS: ANION GAP 14 (5-19); BLOOD UREA NITROGEN 44 mg/dL (7-20); CALCIUM 8.3 mg/dL (8.4-10.2); CARBON DIOXIDE 27 mmol/L (22-30); CHLORIDE 98 mmol/L (98-107); GLUCOSE 77 mg/dL (75-110); POTASSIUM 5.3 mmol/L (3.6-5.0); SODIUM 138.7 mmol/L (137-145)
[2018-03-05] MEDS ORDERED: LIDOCAINE 0.5% INJ-PF (5 MG/ML) 50 ML SDV ONE (07:25)
[2018-03-05] MEDS ORDERED: HEPARIN SOD (PORCINE) 5,000 UNIT/ML 1 ML SYRINGE ONE (07:45)
[2018-03-05] MEDS ORDERED: FENTANYL CITRATE INJ/PF 100 MCG/2 ML AMPUL ONE (07:45)
[2018-03-05] MEDS ORDERED: MIDAZOLAM 2 MG/2 ML INJ ONE (07:45)
--- NOTE | 2018-03-05 09:22 | PDOC H&P ---
General Chief Complaint: This patient was referred across for evaluation. Increased bleeding is noted from his AV access on dialysis. - Diagnosis (1) End stage renal disease Is this a Current Diagnosis?: Yes - Current Medications/Allergies Home Medications: Lorazepam [Ativan 1 mg Tablet] 1 mg PO .BEFORE DIALYSIS 11/21/17 Sevelamer Carbonate [Renvela] 3,200 mg PO MEALS 11/21/17 Allergies/Adverse Reactions: Penicillins Allergy (Severe, Verified 01/26/18 10:41) Hives Past Medical History Cardiac Medical History: Reports: Myocardial Infarction - 2016 Denies: Coronary Artery Disease, Hypertension Pulmonary Medical History: Denies: Asthma, Bronchitis, Chronic Obstructive Pulmonary Disease (COPD), Pneumonia Neurological Medical History: Denies: Seizures Renal/ Medical History: Reports: End Stage Renal Disease GI Medical History: Reports: Gastroesophageal Reflux Disease Musculoskeltal Medical History: Denies: Arthritis Hematology: Reports: Anemia - hx of Past Surgical History Past Surgical History: Reports: Cardiac Catheterization - 05/2012, Vascular Surgery - PermCath placement Family History Family History: Hypertension Parental Family History Reviewed: No Children Family History Reviewed: No Sibling(s) Family History Reviewed.: No Social History Smoking Status: Never Smoker Frequency of Alcohol Use: None - Formerly alcohol dependent Hx Recreational Drug Use: Yes Drugs: Marijuana Hx Prescription Drug Abuse: No Physical Exam Vital Signs: Temp Pulse Resp BP Pulse Ox 97.7 F 61 16 142/77 H 100 03/05/18 06:23 03/05/18 06:23 03/05/18 06:23 03/05/18 06:23 03/05/18 06:23 Intake & Output 03/04/18 03/05/18 03/06/18 06:59 06:59 06:59 Weight 48.534 kg Additional comments: Constitutional: Well-developed well-nourished gentleman. No apparent acute distress. Eyes: Mucous membranes pink and moist, pupils equal and reactive to light. Conjunctiva normal. Cornea normal. ENT: Hearing grossly diminished. External pinna normal to inspection. Teeth intact. Tongue normal to inspection. Cardiac: Heart sounds 1 and 2 normal, no murmurs. Respiratory breath sounds are present bilaterally, normal. Normal respiratory effort. Psychiatric: Judgment, memory, insight seem normal. Mood is pleasant and appropriate. Extremities: Upper extremities show normal range of movement. Pulses present noted to the radial arteries. Capillary refill normal. No cyanosis noted. No muscle wasting noted. Well-established left arm transposed basilic vein fistula in place. Ectasia noted for 10 cm. Skin quality fairly good with some hypopigmentation laterally. Impression/Plan Plan: The recommendation is angioplasty angiogram and possibly angioplasty. The goal is maintenance of his excellent fistula for as long as possible. The risks, benefits, expected outcome and alternatives are familiar to the patient and he wishes to proceed.
--- NOTE | 2018-03-05 09:25 | Discharge Summary ---
Discharge Summary (SDC) - Discharge Final Diagnosis: #1 malfunctioning AV fistula left transposed basilic. 2. End-stage renal disease on hemodialysis. 3. Hearing deficit. 4. Hypertension Date of Surgery: 03/05/18 Discharge Date: 03/05/18 Condition: Good Treatment or Instructions: Discharge home [after recovery per ASU criteria]. Diet , [renal],as tolerated, when fully awake advance as tolerated. Activities within moderation encouraged. Follow up in my office by appointment in about [1 month. Call for appointment. Leave wounds [covered], [keep clean and dry, until hemodialysis]. Meds per med rec. May shower [in 48 hrs], [try to keep operated area as dry as possible]. Discharge Diet: Other (Comments) - Renal. Respiratory Treatments at Home: Deep Breathing/Coughing Discharge Activity: Activity As Tolerated Report the Following to Your Physician Immediately: Shortness of Breath
--- NOTE | 2018-03-05 09:28 | Operative Report ---
Operative Report DATE OF SURGERY: 03/05/18 PREOPERATIVE DIAGNOSIS: #1 malfunctioning AV fistula left transposed basilic. 2. End-stage renal disease on hemodialysis. 3. Hearing deficit. 4. Hypertension POSTOPERATIVE DIAGNOSIS: #1 malfunctioning AV fistula left transposed basilic. 2. End-stage renal disease on hemodialysis. 3. Hearing deficit. 4. Hypertension OPERATION: 1. Needle access in the fistula. 2. Angioplasty and AV fistula. 3. Angiogram and interpretation. SURGEON: JONY LORA FOOD DEHYDRATOR OPERATOR: None. ANESTHESIA: Moderate Sedation TISSUE REMOVED OR ALTERED: Not applicable. COMPLICATIONS: None. ESTIMATED BLOOD LOSS: 2 mL. INTRAOPERATIVE FINDINGS: Of a well founded left arm transposed basilic fistula. Ectatic and easily available for a distance of about 10 cm, measured. Fairly good skin quality with some hyperpigmentation laterally. Pulsation seems normal subjectively. Nice thrill. Angiogram demonstrates a reasonably sized fistula with some slight narrowing at about 18 cm and also in the distal superior vena cava. Each of these responded to a dilatation with an 8 mm balloon with no significant residual. PROCEDURE: PROCEDURE: After verifying the procedure and having obtained informed consent, the patient's left arm was prepared with Chlorhexidine and draped out with sterile linen. Local anesthesia infiltrated. Percutaneous access into the fistula ,[ antegrade], obtained about [6 cm] from the arteriovenous anastomosis using a micro puncture needle followed by micro puncture wire and then a micro puncture catheter. A 0.035 [place] wire was inserted, and over this, a 6 Greek short introducer was placed.Angiogram demonstrated the aforementioned findings. Angioplasty was elected., this was followed by a [8 -mm] angioplasty balloon . Angioplasty was serially done at the culprit lesions. Inflating using a 3 mils syringe for a minute at a time.]. Completion angiogram demonstrated [satisfactory result]. The instrumentation was now withdrawn over hand pressure for 10 minutes . Dressings applied, procedure concluded. Exposure time: 0.5 minutes Radiation: 7.39 mGy Contrast: 25 mils of Isovue low osmolality. DICTATING PHYSICIAN: JONY JEFFERSON M.D. cc: JONY JEFFERSON M.D. ([id number]) >>
--- NOTE | 2018-03-05 10:49 | RADIOLOGY REPORT (SQ) ---
EXAM DESCRIPTION: FISTULAGRAM W/PLASTY; ANGIOPLASTY BRACHIOCEPHALIC COMPLETED DATE/TIME: 03/05/2018 10:28 am REASON FOR STUDY: T82.858A T82.858A STENOSIS OF OTHER VASCULAR PROSTH DEV/GRFT, INIT COMPARISON: 12/05/2016 FLUOROSCOPY TIME: 0.5 minutes Spot images saved to PACS. TECHNIQUE: Intra-operative images acquired during surgical procedure to evaluate progress. NUMBER OF IMAGES: 41 LIMITATIONS: None. FINDINGS: Fluoroscopy was provided for intraoperative procedure. Please refer to the operative repo rt for further discussion. IMPRESSION: IMAGE(S) OBTAINED DURING PROCEDURE. COMMENT: Quality ID [id number]: Final reports for procedures using fluoroscopy that document radiation exp osure indices, or exposure time and number of fluorographic images (if radiation exposure indices are not available) Please consult full operative report of the attending physician for description of the procedure. TECHNICAL DOCUMENTATION: JOB ID: [id number] [employer]- All Rights Reserved Reading location - IP/workstation name: [email or web address]
--- NOTE | 2018-03-05 10:49 | RADIOLOGY REPORT (SQ) ---
EXAM DESCRIPTION: FISTULAGRAM W/PLASTY; ANGIOPLASTY BRACHIOCEPHALIC COMPLETED DATE/TIME: 03/05/2018 10:28 am REASON FOR STUDY: T82.858A T82.858A STENOSIS OF OTHER VASCULAR PROSTH DEV/GRFT, INIT COMPARISON: 12/05/2016 FLUOROSCOPY TIME: 0.5 minutes Spot images saved to PACS. TECHNIQUE: Intra-operative images acquired during surgical procedure to evaluate progress. NUMBER OF IMAGES: 41 LIMITATIONS: None. FINDINGS: Fluoroscopy was provided for intraoperative procedure. Please refer to the operative repo rt for further discussion. IMPRESSION: IMAGE(S) OBTAINED DURING PROCEDURE. COMMENT: Quality ID [id number]: Final reports for procedures using fluoroscopy that document radiation exp osure indices, or exposure time and number of fluorographic images (if radiation exposure indices are not available) Please consult full operative report of the attending physician for description of the procedure. TECHNICAL DOCUMENTATION: JOB ID: [id number] [email or web address]- All Rights Reserved Reading location - IP/workstation name: [email or web address]
[2018-03-05 10:55] VITALS: BP 133/85
== END 2018-03-05 10:15 | disposition home or self-care (01) ==
LOC: CCL 05:46
PROVIDERS: ATTEND Surgery
DX: T82.858A Stenosis of other vascular prosthetic devices, implants and grafts, initial encounter (principal); Y83.2 Surgical operation with anastomosis, bypass or graft as the cause of abnormal reaction of the patient, or of later complication, without mention of misadventure at the time of the procedure; I12.0 Hypertensive chronic kidney disease with stage 5 chronic kidney disease or end stage renal disease; N18.6 End stage renal disease; Z99.2 Dependence on renal dialysis; K21.9 Gastro-esophageal reflux disease without esophagitis; R01.1 Cardiac murmur, unspecified; H91.90 Unspecified hearing loss, unspecified ear; F12.90 Cannabis use, unspecified, uncomplicated; Z95.1 Presence of aortocoronary bypass graft; Z01.818 Encounter for other preprocedural examination; Z79.899 Other long term (current) drug therapy; Z88.0 Allergy status to penicillin; I25.2 Old myocardial infarction
CPT/HCPCS: 36415; 85027; 80048; 36907; 36902; C1725; C1752; Q9967; C1769; J2250; J1644 ×2; A9270 ×2; J3010; J3490

== ENCOUNTER 2018-06-24 18:01 | Emergency (ER) | payer MEDICARE, MEDICAID ==
[2018-06-24 18:12] VITALS: BP 167/100
[2018-06-24] MEDS ORDERED: LIDOCAINE 2% VISCOUS SOLN 20 ML UDCUP PO ONE (18:23)
--- NOTE | 2018-06-24 18:24 | ER Document Report ---
ED General - General Chief Complaint: Toothache Stated Complaint: BROKEN TOOTH Time Seen by Provider: 06/24/18 18:14 Primary Care Provider: [facility] [Provider Group] - Follow up tomorrow JASBIR DOWNS MD [Primary Care Provider] - Follow up as needed TRAVEL OUTSIDE OF THE [place] IN LAST 30 DAYS: No - HPI Notes: Patient is a 53-year-old male who presents to the ED complaining of right lower dental pain multiple teeth with swelling that started today. He has not noticed any obvious abscess or purulent discharge. Patient states that he is still able to eat and drink, but does have a decreased p.o. intake due to the pain. He has tried some dtbd-tut-awxdxis meds with minimal relief. No other concerns or complaints. Denies any headache, fever, head injury, neck pain, hoarseness, drooling, URI, sore throat, chest pain, palpitations, syncope, cough, shortness of breath, wheeze, dyspnea, abdominal pain, nausea/vomiting/diarrhea, urinary retention, dysuria, hematuria, or rash. Also pertinent is that 1 of the patient's right lower premolar teeth apparently extracted itself when he bit into an apple. - Related Data Allergies/Adverse Reactions: Penicillins Allergy (Severe, Verified 01/26/18 10:41) Hives Past Medical History - General Information source: Patient - Social History Smoking Status: Current Every Day Smoker Family History: Reviewed & Not Pertinent, Hypertension - Past Medical History Cardiac Medical History: Reports: Hx Heart Attack - 2016 Denies: Hx Coronary Artery Disease, Hx Hypertension Pulmonary Medical History: Denies: Hx Asthma, Hx Bronchitis, Hx COPD, Hx Pneumonia Neurological Medical History: Reports: Hx Cerebrovascular Accident - X 3, L WEAKER THAN RIGHT. Denies: Hx Seizures Renal/ Medical History: Reports: Hx End Stage Renal Disease, Hx Hemodialysis. Denies: Hx Peritoneal Dialysis GI Medical History: Reports: Hx Gastroesophageal Reflux Disease Musculoskeletal Medical History: Denies Hx Arthritis Past Surgical History: Reports: Hx Cardiac Catheterization - 05/2012, Hx Vascular Surgery - PermCath placement - Immunizations Hx Diphtheria, Pertussis, Tetanus Vaccination: Yes Hx Pneumococcal Vaccination: 07/12/16 Review of Systems - Review of Systems Notes: Constitutional: No fevers. No chills. EENT: No eye redness. No eye pain. No ear pain. No sore throat. Tooth avulsion, dental pain Cardiovascular: No chest pain. No palpitations. Respiratory: No cough. No shortness of breath. No respiratory distress. Gastrointestinal: No abdominal pain. No nausea, vomiting, or diarrhea. Genitourinary: Atraumatic. No lesions. No pain. No discharge. Musculoskeletal: Atraumatic. No swelling. No deformities. Skin: No rash or lesions. Lymphatic: No swollen lymph nodes. Neurologic: No headache. No syncope. Psychiatric: No suicidal or homicidal ideation. Physical Exam - Vital signs Vitals: Temp Pulse Resp BP Pulse Ox 98.4 F 94 18 167/100 H 95 06/24/18 18:11 06/24/18 18:11 06/24/18 18:11 06/24/18 18:11 06/24/18 18:11 - Notes Notes: General: Well-developed, well-nourished. In no acute distress. Non-toxic appearing. Cardiac: Well-perfused. Regular rate and rhythm. No murmurs, rubs, or gallops. Pulmonary: No respiratory distress. No cyanosis. Bilateral lung fiels are clear to auscultation. Abdominal: Non-distended. Non-rigid. Bowels sounds are present in all four quadrants. No guarding or rebound. HEENT: Head is atraumatic. Conjunctivae not reddened. No tearing. PERRL. EOMI. Orbits atraumatic. No periorbital swelling or erythema. Oropharynx is without er ythema, swelling, or exudates. Multiple severely decayed teeth. Overall poor dentition. Right front incisor is severely decayed and loose. No visible gum abscess. Right lower premolar tooth is avulsed with a small piece still embedded in the gum. No visible abscess. No trismus. No drooling. No submandibular or sublingual swelling. Neck: Supple. No adenopathy. No meningismus. Dermatologic: Warm with good turgor. No rash. Atraumatic. Chest: Atraumatic. No chest wall tenderness to palpation. Musculoskeletal: Moves all extremities well. No range of motion deficits. no muscular or joint tenderness. No paraspinal muscle tenderness. no midline spinal tenderness or step-off. Genitourinary: Examination deferred Neurologic: No gross neurologic deficits. Psychiatric: Normal mood. Course - Re-evaluation Re-evalutation: 06/24/18 18:22 Patient is an afebrile, well-hydrated, 53-year-old male who presents to the ED with dental pain, suspect nerve root etiology versus infection. Vitals are acceptable. PE is otherwise unremarkable. No I&D, labs, or imaging warranted at this time based on H&P. Viscous lidocaine dispensed today. I will send him home with a prescription for clindamycin. Low suspicion for any meningitis, sepsis, peritonsillar/pharyngeal abscess, respiratory compromise, Catalino's, temporal arteritis, or other emergent systemic condition at this time. Patient is aware this condition can change from initial presentation and he needs to monitor symptoms closely. Conservative measures otherwise for symptoms. Call to schedule an appointment with a dentist for further evaluation and management. Recheck with your PCM this week as well. Return to the ED with any worsening/concerning symptoms otherwise as reviewed in discharge. Patient is in agreement. - Vital Signs Vital signs: Temp Pulse Resp BP Pulse Ox 98.4 F 94 18 167/100 H 95 06/24/18 18:11 06/24/18 18:11 06/24/18 18:11 06/24/18 18:11 06/24/18 18:11 Discharge - Discharge Clinical Impression: Dental abscess Tooth avulsion Qualifiers: Encounter type: initial encounter Qualified Code(s): S03.2XXA - Dislocation of tooth, initial encounter Condition: Good Disposition: HOME, SELF-CARE Instructions: Clindamycin ([facility]), Toothache ([facility]) Prescriptions: Clindamycin HCl 300 mg PO TID #30 capsule Referrals: JASBIR DOWNS MD [Primary Care Provider] - Follow up as needed [facility] [Provider Group] - Follow up tomorrow
== END 2018-06-24 18:40 | disposition home or self-care (01) ==
LOC: ER 18:01
DX: S03.2XXA Dislocation of tooth, initial encounter (principal); K04.7 Periapical abscess without sinus; K08.89 Other specified disorders of teeth and supporting structures; R22.0 Localized swelling, mass and lump, head; X58.XXXA Exposure to other specified factors, initial encounter; F17.200 Nicotine dependence, unspecified, uncomplicated
CPT/HCPCS: 99282; J3490

== ENCOUNTER → 2018-07-02 | Outpatient (CLI) | payer MEDICARE, MEDICAID ==
--- NOTE | 2018-07-02 13:11 | RADIOLOGY REPORT (SQ) ---
EXAM DESCRIPTION: CHEST 2 VIEWS COMPLETED DATE/TIME: 07/02/2018 12:14 pm REASON FOR STUDY: J40 BRONCHITIS, NOT SPECIFIED ACUTE OR CHRONIC COMPARISON: 11/22/2017 EXAM PARAMETERS: NUMBER OF VIEWS: two views TECHNIQUE: Digital Frontal and Lateral radiographic views of the chest acquired. RADIATION DOSE: NA LIMITATIONS: none FINDINGS: LUNGS AND PLEURA: Pulmonary vascular congestion. No jodee pulmonary edema. Right pleural effusion including fluid in the fissure. MEDIASTINUM AND HILAR STRUCTURES: No masses or contour abnormalities. HEART AND VASCULAR STRUCTURES: Cardiomegaly with no jodee pulmonary edema. BONES: No acute findings. HARDWARE: None in the chest. OTHER: No other significant finding. IMPRESSION: Cardiomegaly with no jodee pulmonary edema. Somewhat loculated right pleural effusion. TECHNICAL DOCUMENTATION: JOB ID: [id number] [employer]- All Rights Reserved Reading location - IP/workstation name: [email or web address]
== END ==
LOC: EDBD 11:57 → RAD 11:57
PROVIDERS: ATTEND Family Medicine
DX: J40 Bronchitis, not specified as acute or chronic (principal); I51.7 Cardiomegaly
CPT/HCPCS: 71046